=== PATIENT | male | born 1940 | race Caucasian/White ===

== ENCOUNTER 2018-04-06 14:01 | Emergency (ER) | payer MEDICARE, OTHER, SELFPAY ==
[2018-04-06] VITALS (9 sets, daily range): BP systolic 144–174; BP diastolic 76–105; PULSE 67–93; RESP 15–28; TEMP 36.4; O2SAT 93–96; BMI 27.7
--- NOTE | 2018-04-06 14:27 | DI.RAD.S_ITS ---
PROCEDURE: XR CHEST 2V INDICATIONS: 77-year-old male with chronic shortness of breath, increasing today. TECHNIQUE: 2 views of the chest were acquired. COMPARISON: [facility], , CHEST 1 VIEW, 03/05/2017, 17:00. [facility], , CHEST 1 VIEW, 11/21/2016, 14:24. [facility], , CHEST 1 VIEW, 11/17/2016, 11:43. 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 Lungs and pleura: Trace bibasilar pleural effusions are present. No pneumothorax. There is mild interstitial pulmonary edema. Mediastinum: Mediastinal contours are normal. Heart size is normal. Bones and chest wall: No suspicious bony abnormalities. There is truncation of the lateral left clavicle from remote surgery or trauma. Soft tissues appear unremarkable. IMPRESSION: Mild interstitial pulmonary edema along with trace bibasilar pleural effusions, possibly from congestive heart failure. Dictated by: Jeremy Fay M.D. on 04/06/2018 at 15:21 Approved by: Jeremy Fay M.D. on 04/06/2018 at 15:23
[2018-04-06 15:00] LABS: Add Manual Diff / Slide Review NO; Basophils Percent Auto 1.1 % (0-2); Eosinophils Percent Auto 5.1 % (2-4); Hematocrit 35.9 % (41-53); Hemoglobin 11.8 g/dL (13.5-17.5); Lymphocytes Percent Auto 10.3 % (25-40); Mean Corpuscular Hemoglobin 26.8 PG (26-34); Mean Corpuscular Volume 81.1 fL (80-100); Monocytes Percent Auto 8.9 % (3-14); Neutrophils Absolute Auto 4100 /uL (3000-5900); Neutrophils Percent Auto 74.6 % (50-75); Platelet Count 122 X10^3/uL (150-400); Red Blood Cell Count 4.42 X10^6/uL (4.5-5.9); Red Cell Distribution Width 16.9 % (11.6-14.8); White Blood Cell Count 5.5 X10^3/uL (4.5-11.0)
[2018-04-06 15:11] LABS: Alanine Aminotransferase 36 IU/L (21-72); Albumin 3.9 g/dL (3.5-5.0); Albumin Globulin Ratio 1.3 (1.0-2.8); Alkaline Phosphatase 86 U/L (38-126); Aspartate Aminotransferase 16 IU/L (17-59); Bilirubin Total 0.7 mg/dL (0.2-1.3); Blood Urea Nitrogen 24 mg/dL (9-20); Calcium 9.2 mg/dL (8.4-10.2); Carbon Dioxide 23 mmol/L (22-32); Chloride 105 mmol/L (98-107); Creatine Kinase 80 U/L (55-170); Estimated Glomerular Filt Rate 45.1 mL/min (>60); Globulin 2.9 g/dL (1.7-4.1); Glucose 114 mg/dL (80-110); HEMOLYSIS < 15 (0-50); Potassium 3.5 mmol/L (3.4-5.1); Sodium 143 mmol/L (137-145); Total Protein 6.8 g/dL (6.3-8.2)
[2018-04-06 15:12] LABS: Lactate (Lactic Acid) 1.4 mmol/L (0.7-2.1)
[2018-04-06 15:23] LABS: Troponin I < 0.012 ng/mL (0.01-0.034)
--- NOTE | 2018-04-06 15:32 | ED_ITS ---
HPI - SOB/Dyspnea General Chief Complaint: Shortness of Breath/Dyspnea Stated Complaint: HARD TIME BREATHING Time Seen by Provider: 04/06/18 14:27 Source: patient Limitations: no limitations History of Present Illness Patient presents to the emergency department today with a chief complaint of shortness of breath which has been going on quite some time but is noticeably worse over the past few days. He denies any significant provocation or palliation of his symptoms. He coughs frequently and states he has been doing this for years. He was recently admitted at [facility] a few weeks ago. He denies any chest pain is not dizzy nor weak or lightheaded. He denies any weight gain MD Complaint: shortness of breath Onset (ago): day(s) Context: recent illness Severity: moderate Consistency/Duration: constant Relieving factors: nothing Exacerbating factors: nothing Related Data Home Medications Medication Instructions Recorded Confirmed aspirin 81 mg PO DAILY #0 05/25/10 04/06/18 amlodipine 10 mg PO DAILY 04/06/18 04/06/18 apixaban [Eliquis] 2.5 mg PO BID 04/06/18 04/06/18 atorvastatin 40 mg PO DAILY 04/06/18 04/06/18 donepezil 5 mg PO BEDTIME 04/06/18 04/06/18 fluticasone furoate 1 spray INTRANASAL DIRECTED 04/06/18 04/06/18 furosemide 20 mg PO DAILY 04/06/18 04/06/18 metoprolol succinate 50 mg PO DAILY 04/06/18 04/06/18 metoprolol succinate 100 mg PO DAILY 04/06/18 04/06/18 terazosin 2 cap PO BEDTIME 04/06/18 04/06/18 Allergies Allergy/AdvReac Type Severity Reaction Status Date / Time No Known Drug Allergies Allergy Verified 04/06/18 14:16 Review of Systems Review of Systems All systems reviewed & are unremarkable except as noted in HPI and below Constitutional Denies chills, Denies fever(s), Denies lethargy and Denies weakness Eyes Denies change in vision, Denies eye discharge, Denies irritation and Denies loss of vision ENT Ears, Nose, Mouth, and Throat: Denies change in voice, Denies neck pain and Denies sore throat Cardiovascular Denies chest pain, Denies irregular heart rhythm, Denies lightheadedness, Denies palpitations, Reports dyspnea, Reports dyspnea on exertion and Denies orthopnea Respiratory Denies cough, Reports dyspnea, Reports dyspnea on exertion and Denies wheezing Gastrointestinal Gastrointestinal: Denies abdominal pain, Denies change in bowel habits, Denies diarrhea, Denies nausea and Denies vomiting Genitourinary Denies hematuria, Denies flank pain, Denies urinary incontinence and Denies urinary urgency Musculoskeletal Denies neck pain Integumentary/Breasts Denies pruritus, Denies erythema, Denies rash and Denies wounds Neurologic Denies confusion, Denies loss of vision and Denies weakness Psychiatric Denies anxiety, Denies confusion, Denies depression, Denies homicidal ideation and Denies suicidal ideation Endocrine Denies palpitations Hematologic/Lymphatic Denies easy bruising Allergic/Immunologic Denies wheezing PFSH Social History Smoking Status: Never smoker Exam Narrative Exam Narrative: Pleasant 77-year-old male in no obvious or significant distress Initial Vital Signs Initial Vital Signs: Vital Signs Temperature 97.6 F 04/06/18 14:13 Pulse Rate 68 04/06/18 14:13 Respiratory Rate 28 H 04/06/18 14:13 Blood Pressure 144/77 H 04/06/18 14:13 Pulse Oximetry 93 04/06/18 14:13 Const General: cooperative, healthy appearing, comfortable and well developed Nutritional Appearance: overweight Orientation: alert, awake, oriented x3 and not confused [facility] Head: normocephalic and atraumatic Ears: external ears normal and TM's normal bilaterally Nose: external nose normal and No nasal discharge Face and sinus: sinuses nontender, face symmetric, no sinus tenderness and No dry mucous membranes Mouth: oral mucosae normal and moist mucous membranes Teeth and gingiva: dentition normal Throat: tonsils normal and uvula midline Eyes General: appearance normal, both eyes and all related structures Eyelids: eyelids normal Conjunctivae: conjunctivae normal Sclera: sclerae normal Pupils: PERRL EOM: EOM intact bilaterally Neck Neck: normal visual inspection, trachea midline, No lymphadenopathy, No midline deformity and No JVD Lymphatic: No lymphedema Chest Chest: normal inspection of the chest Resp Effort & Inspection: prolonged expiratory phase Auscultation: diminished lung sounds, no rales, no rhonchi and wheezes Cardio Rate: regular rate Rhythm: regular rhythm Heart Sounds: no click, no gallops, no murmurs and no rubs Pulses: normal peripheral pulses GI Inspection: non-distended Palpation: soft, no hepatosplenomegaly, No guarding, No pulsatile mass and No tender Auscultation: normal bowel sounds Back/Spine/Pelvis Back: No CVA tenderness Cervical Spine: cervical ROM normal and No pain with cervical ROM Thoracic/Lumbar Spine: thoracic and lumbar spine normal to inspection Skin General: no rashes or lesions noted, No jaundice and No petechiae Neuro General: alert, oriented x3, gait normal and no focal motor deficits Speech: speech normal Extrem General: full ROM, no clubbing, cyanosis or edema, no pedal edema and no calf tenderness Psych Appearance: well kempt Mental Status: mental status grossly normal Attitude: cooperative Thought Content: normal and suicidality Judgment: judgment good Course Orders Ordered: ED Orders 04/06/18 14:27 Consult to Respiratory Therapy Evaluate & Treat XR chest 2V Stat EKG-12 Lead Stat 04/06/18 14:50 B Type Natriuretic Peptide Stat Complete Blood Count AUTO DIFF Stat Comprehensive Metabolic Panel Stat Lactate (Lactic Acid) Stat Troponin with CK Cardiac Panel Stat Discontinued Medications Albuterol/Ipratropium (Duoneb) 3 ml INH NOW ONE Stop: 04/06/18 15:33 Last Admin: 04/06/18 16:06 Dose: 3 ml Furosemide (Lasix) 40 mg IV NOW ONE Stop: 04/06/18 15:33 Last Admin: 04/06/18 15:36 Dose: 40 mg Methylprednisolone (Solu-Medrol 125 Mg Vial) 125 mg IV NOW ONE Stop: 04/06/18 15:33 Last Admin: 04/06/18 15:36 Dose: 125 mg Reevaluation(s) Reevaluation #1: Patient feeling tremendous improvement after above-stated therapies, will do ambulatory pulse ox prior to DC Reevaluation #2: Patient ambulates through department without difficulty. Ambulatory pulse ox is in mid 90s with a heart rate in the 80s, he remains fully conversant Time: 17:52 Vital Signs - 8 hr 04/06/18 14:13 04/06/18 15:31 04/06/18 16:00 Temperature 97.6 F Pulse Rate 68 69 71 Respiratory Rate 28 H 23 16 Blood Pressure 144/77 H Blood Pressure [Left Arm] 166/76 H 150/78 H Pulse Oximetry 93 96 96 04/06/18 16:25 04/06/18 16:41 04/06/18 17:30 Temperature Pulse Rate 67 81 93 H Respiratory Rate 20 17 15 Blood Pressure Blood Pressure [Left Arm] 174/78 H 164/105 H Pulse Oximetry 95 94 93 MDM - SOB/Dyspnea Lab Data Result diagrams: 04/06/18 14:50 04/06/18 14:50 Lab Results 04/06/18 04/06/18 04/06/18 Range/Units 14:50 14:50 14:50 WBC 5.5 (4.5-11.0) X10^3/uL RBC 4.42 L (4.5-5.9) X10^6/uL Hgb 11.8 L (13.5-17.5) g/dL Hct 35.9 L (41-53) % MCV 81.1 (80-100) fL MCH 26.8 (26-34) PG MCHC 33.0 (30-36) % RDW 16.9 H (11.6-14.8) % Plt Count 122 L (150-400) X10^3/uL Neut % (Auto) 74.6 (50-75) % Lymph % (Auto) 10.3 L (25-40) % [place] % (Auto) 8.9 (3-14) % Eos % (Auto) 5.1 H (2-4) % Baso % (Auto) 1.1 (0-2) % Neut # (Auto) 4100 (0651-2715) /uL Sodium 143 (137-145) mmol/L Potassium 3.5 (3.4-5.1) mmol/L Chloride 105 (98-107) mmol/L Carbon Dioxide 23 (22-32) mmol/L BUN 24 H (9-20) mg/dL Creatinine 1.50 H (0.66-1.25) mg/dL Estimated GFR 45.1 L (>60) mL/min BUN/Creatinine Ratio 16.0 (6-22) Glucose 114 H (80-110) mg/dL Lactate 1.4 (0.7-2.1) mmol/L Calcium 9.2 (8.4-10.2) mg/dL Total Bilirubin 0.7 (0.2-1.3) mg/dL AST 16 L (17-59) IU/L ALT 36 (21-72) IU/L Alkaline Phosphatase 86 (38-126) U/L Total Creatine Kinase 80 (55-170) U/L Troponin I < 0.012 (0.01-0.034) ng/mL B-Natriuretic Peptide 692.0 H (<29.3) Total Protein 6.8 (6.3-8.2) g/dL Albumin 3.9 (3.5-5.0) g/dL Globulin 2.9 (1.7-4.1) g/dL Albumin/Globulin Ratio 1.3 (1.0-2.8) Discharge Plan Departure Patient Disposition: Home, Self-Care Clinical Impression: CHF exacerbation Instructions: DI for Heart Failure Activity Restrictions/Additional Instructions: *You have been diagnosed with [ acute CHF ] *What to do: * please take an additional Lasix daily for each of the next 3 days (up to 40mg PO) Take other medications as directed *Follow up with your primary care provider in 2-3 days *Return to ER if you should have any new, worsening or concerning symptoms Prescriptions: No Action aspirin 81 mg Tablet,Delayed Release (Dr/Ec) 81 mg PO DAILY Qty: 0 RF: 0 atorvastatin 40 mg tablet 40 mg PO DAILY RF: 0 donepezil 5 mg tablet 5 mg PO BEDTIME RF: 0 metoprolol succinate 100 mg tablet extended release 24 hr 100 mg PO DAILY RF: 0 amlodipine 10 mg tablet 10 mg PO DAILY RF: 0 furosemide 20 mg tablet 20 mg PO DAILY RF: 0 apixaban [Eliquis] 2.5 mg tablet 2.5 mg PO BID RF: 0 metoprolol succinate 50 mg Tablet Extended Release 24 Hr 50 mg PO DAILY RF: 0 terazosin 10 mg capsule 2 cap PO BEDTIME RF: 0 fluticasone furoate 27.5 mcg/actuation [place],Suspension 1 spray Intranasal DIRECTED RF: 0
[2018-04-06] MEDS: methylPREDNISolone 125 MG/2 ML VIAL IV (15:36)
[2018-04-06] MEDS: FUROSEMIDE 40 MG/4 ML VIAL IV (15:36)
--- NOTE | 2018-04-06 15:42 | PC.NURSE ---
Explained meds given. Understands.
[2018-04-06] MEDS: ALBUTEROL/IPRATROPIUM 3 ML AMPUL INH (16:06)
== END 2018-04-06 18:22 | disposition home or self-care (01) ==
PROVIDERS: Emergency Provider Emergency Medicine; Family Provider Internal Medicine; PCP Internal Medicine
DX: I50.9 Heart failure, unspecified (principal)
CPT/HCPCS: 36591; 71046; 80053; 82550; 82553; 83605; 83880; 84484; 85025; 93005; 93041; 94640; 96374; 96375; 99285; J1940; J2930

== ENCOUNTER 2018-05-06 17:49 | Inpatient (IN) | payer MEDICARE, OTHER, SELFPAY ==
[2018-05-06] VITALS (13 sets, daily range): BP systolic 143–191; BP diastolic 75–114; PULSE 104–137; RESP 16–26; TEMP 36.8–37.7; O2SAT 90–100; BMI 29.1
--- NOTE | 2018-05-06 17:52 | DI.RAD.S_ITS ---
PROCEDURE: XR CHEST 1V INDICATIONS: Problems breathing with cough TECHNIQUE: One view of the chest was acquired. COMPARISON: [facility], , CHEST 1 VIEW, 11/21/2016, 14:24. [facility], , CHEST 1 VIEW, 03/05/2017, 17:00. [facility], , XR CHEST 2V, 04/06/2018, 14:36. FINDINGS: Surgical changes and devices: Sternotomy and a prosthetic heart valve. Lungs and pleura: Bilateral interstitial prominence suggesting mild pulmonary edema secondary to congestive heart failure. Retrocardiac opacity may be secondary to superimposed pneumonia. No pleural effusions or pneumothorax. Mediastinum: Mediastinal contours appear normal. Heart size is normal. Bones and chest wall: No suspicious bony lesions. Overlying soft tissues appear unremarkable. IMPRESSION: 1. Suspect mild congestive heart failure. 2. Retrocardiac opacity may be secondary to superimposed pneumonia. Recommend clinical correlation. Dictated by: Kayla Pritchett M.D. on 05/06/2018 at 18:35 Approved by: Kayla Pritchett M.D. on 05/06/2018 at 18:37
[2018-05-06 18:21] LABS: Add Manual Diff / Slide Review NO; Basophils Percent Auto 0.7 % (0-2); Eosinophils Percent Auto 2.2 % (2-4); Hemoglobin 11.4 g/dL (13.5-17.5); Lymphocytes Percent Auto 6.7 % (25-40); Mean Corpuscular HGB Conc 32.7 % (30-36); Mean Corpuscular Hemoglobin 26.5 PG (26-34); Mean Corpuscular Volume 81.3 fL (80-100); Monocytes Percent Auto 8.3 % (3-14); Neutrophils Absolute Auto 5400 /uL (3000-5900); Neutrophils Percent Auto 82.1 % (50-75); Platelet Count 133 X10^3/uL (150-400); Red Blood Cell Count 4.31 X10^6/uL (4.5-5.9); Red Cell Distribution Width 17.8 % (11.6-14.8); White Blood Cell Count 6.6 X10^3/uL (4.5-11.0)
[2018-05-06 18:31] LABS: INR 1.4 (0.9-1.3); Prothrombin Time 15.5 SECONDS (10.1-12.7)
[2018-05-06] MEDS: dilTIAZem 25 MG/5 ML SDV 10 MG IV (18:32)
[2018-05-06] MEDS: FUROSEMIDE 100 MG/10 ML VIAL 60 MG IV (18:32)
[2018-05-06 18:33] LABS: PTT Partial Thromboplastin Tim 31 SECONDS (26.4-36.2)
[2018-05-06 18:39] LABS: Alanine Aminotransferase 38 IU/L (21-72); Albumin Globulin Ratio 1.3 (1.0-2.8); Alkaline Phosphatase 94 U/L (38-126); Aspartate Aminotransferase 23 IU/L (17-59); BUN Creatinine Ratio 16.2 (6-22); Bilirubin Total 0.7 mg/dL (0.2-1.3); Blood Urea Nitrogen 21 mg/dL (9-20); Calcium 9.4 mg/dL (8.4-10.2); Carbon Dioxide 24 mmol/L (22-32); Chloride 110 mmol/L (98-107); Estimated Glomerular Filt Rate 53.3 mL/min (>60); Globulin 3.1 g/dL (1.7-4.1); Glucose 129 mg/dL (80-110); HEMOLYSIS 28 (0-50); Potassium 3.8 mmol/L (3.4-5.1); Sodium 147 mmol/L (137-145); Total Protein 7.1 g/dL (6.3-8.2)
[2018-05-06 18:53] LABS: Troponin I < 0.012 ng/mL (0.01-0.034)
[2018-05-06 18:56] LABS: Procalcitonin < 0.05 ng/mL (<0.5)
[2018-05-06] MEDS: PROPOFOL 200 MG/20 ML VIAL 50 MG IV (19:47)
--- NOTE | 2018-05-06 19:52 | ED_ITS ---
HPI - SOB/Dyspnea General Chief Complaint: Shortness of Breath/Dyspnea Stated Complaint: HARD TIME BREATHING COUGH Time Seen by Provider: 05/06/18 18:00 Source: patient and family Mode of arrival: ambulatory Limitations: no limitations History of Present Illness 77-year-old male with history of AFib on anticoagulation, CHF, and hypertension presents with 3-4 days of increasing shortness of breath, particularly with exertion or lying flat. Additionally has swelling in his lower extremities. He states he has normally in sinus rhythm and has never been cardioverted. He is not dizzy or lightheaded but is short of breath and fatigued. He has had some cough but denies any yellowish sputum or fever. He states he has actually been slightly short of breath since I last saw him on April 06 for an exacerbation of heart failure in which he was encouraged to take a few extra doses of Lasix and follow up with his primary care provider. MD Complaint: shortness of breath and cough Onset (ago): day(s) Related Data Home Medications Medication Instructions Recorded Confirmed aspirin 81 mg PO DAILY #0 05/25/10 05/06/18 amlodipine 10 mg PO DAILY 04/06/18 05/06/18 apixaban [Eliquis] 2.5 mg PO BID 04/06/18 05/06/18 atorvastatin 40 mg PO DAILY 04/06/18 05/06/18 donepezil 5 mg PO BEDTIME 04/06/18 05/06/18 fluticasone furoate 1 spray INTRANASAL PRN PRN 04/06/18 05/06/18 furosemide 20 mg PO DAILY 04/06/18 05/06/18 metoprolol succinate 50 mg PO DAILY 04/06/18 05/06/18 metoprolol succinate 100 mg PO DAILY 04/06/18 05/06/18 terazosin 2 cap PO BEDTIME 04/06/18 05/06/18 Allergies Allergy/AdvReac Type Severity Reaction Status Date / Time No Known Drug Allergies Allergy Verified 04/06/18 14:16 Review of Systems Review of Systems All systems reviewed & are unremarkable except as noted in HPI and below Constitutional Denies chills, Denies fever(s), Denies lethargy and Denies weakness Eyes Denies change in vision, Denies eye discharge, Denies irritation and Denies loss of vision ENT Ears, Nose, Mouth, and Throat: Denies change in voice, Denies neck pain and Denies sore throat Cardiovascular Denies chest pain, Denies irregular heart rhythm, Denies lightheadedness, Denies palpitations, Reports dyspnea, Denies dyspnea on exertion and Denies orthopnea Respiratory Reports cough, Reports dyspnea, Denies dyspnea on exertion and Denies wheezing Gastrointestinal Gastrointestinal: Denies abdominal pain, Denies change in bowel habits, Denies diarrhea, Denies nausea and Denies vomiting Genitourinary Denies hematuria, Denies flank pain, Denies urinary incontinence and Denies urinary urgency Musculoskeletal Denies neck pain Integumentary/Breasts Denies pruritus, Denies erythema, Denies rash and Denies wounds Neurologic Denies confusion, Denies loss of vision and Denies weakness Psychiatric Denies anxiety, Denies confusion, Denies depression, Denies homicidal ideation and Denies suicidal ideation Endocrine Denies palpitations Hematologic/Lymphatic Denies easy bruising Allergic/Immunologic Denies wheezing PFSH Social History household members: spouse Smoking Status: Never smoker Exam Narrative Exam Narrative: Pleasant 77-year-old male in mild distress, obviously short of breath. Nasal cannula to keep pulse ox at 92% Initial Vital Signs Initial Vital Signs: Vital Signs Temperature 98.2 F 05/06/18 18:00 Pulse Rate 135 H 05/06/18 18:00 Respiratory Rate 26 H 05/06/18 18:00 Blood Pressure 191/108 H 05/06/18 18:00 Pulse Oximetry 90 L 05/06/18 18:00 Const General: cooperative, well developed and acute distress Nutritional Appearance: well nourished Orientation: alert, awake, oriented x3 and not confused [facility] Head: normocephalic and atraumatic Ears: external ears normal and TM's normal bilaterally Nose: external nose normal and No nasal discharge Face and sinus: sinuses nontender, face symmetric, no sinus tenderness and No dry mucous membranes Mouth: oral mucosae normal and moist mucous membranes Teeth and gingiva: dentition normal Throat: tonsils normal and uvula midline Eyes General: appearance normal, both eyes and all related structures Eyelids: eyelids normal Conjunctivae: conjunctivae normal Sclera: sclerae normal Pupils: PERRL EOM: EOM intact bilaterally Neck Neck: normal visual inspection, trachea midline, No lymphadenopathy, No midline deformity and No JVD Lymphatic: No lymphedema Chest Chest: normal inspection of the chest Resp Effort & Inspection: normal respiratory effort, able to speak in complete sentences, respiratory distress and no use of accessory muscles Auscultation: clear to auscultation bilaterally, rales, no rhonchi and no wheezes Cardio Rhythm: abnormal rhythm GI Inspection: non-distended Palpation: soft, no hepatosplenomegaly, No guarding, No pulsatile mass and No tender Auscultation: normal bowel sounds Back/Spine/Pelvis Back: No CVA tenderness Cervical Spine: cervical ROM normal and No pain with cervical ROM Thoracic/Lumbar Spine: thoracic and lumbar spine normal to inspection Skin General: no rashes or lesions noted, No jaundice and No petechiae Neuro General: alert, awake and oriented x3 Extrem Right lower extremity: edema Left lower extremity: edema Procedures Procedural Sedation Indication: cardioversion ASA Class: II Mallampati Airway Classification: Class II Preparation: groundwater monitoring technician applied, pulse oximeter, capnometry used, supplemental O2 applied, suction/airway equipment at bedside and IV secured IV Propofol dose (mg): 50 ED Sedation Level: Moderate (Concious) Patient Tolerated Procedure: Well Complications: none Additional Comments: Electrical Cardioversion: Indication: [Rapid AFib in CHF] A time-out was completed verifying correct patient, procedure and site. Informed consent was obtained. The patient was judged to be a satisfactory for the procedure. An intravenous access was established. Monitoring equipment was set-up. The resuscitative cart was nearby. Anesthesia: The patient was given an intravenous dose of [propofol 50 mg IVP] After satisfactory anesthesia was achieved, the procedure was performed. The paddles were placed in the standard position. Synchronized, direct current electrical cardioversion was performed with [I joules]. The patient tolerated the procedure well. There were no complications. Post Procedure: Successful cardioversion [was NOT achieved.] Post procedure cardiac monitoring demonstrated [AFib 110s]. Course Orders Ordered: ED Orders 05/06/18 17:52 XR chest 1V Stat EKG-12 Lead Stat 05/06/18 18:10 B Type Natriuretic Peptide Stat Complete Blood Count AUTO DIFF Stat Comprehensive Metabolic Panel Stat Partial Thromboplastin Time Stat Procalcitonin Stat Prothrombin Time INR Stat Troponin I Stat 05/06/18 22:30 MRSA PCR Urgent Acetaminophen (Tylenol) 650 mg PO Q6HR PRN PRN Reason: As Needed for Fever/Mild Pain Last Admin: 05/06/18 23:48 Dose: 650 mg Amlodipine Besylate (Norvasc) 10 mg PO DAILY [facility] Apixaban (Eliquis) 2.5 mg PO BID [facility] Last Admin: 05/06/18 23:33 Dose: 2.5 mg Atorvastatin Calcium (Lipitor) 40 mg PO DAILY [facility] Diltiazem HCl (Cardizem) 20 mg IV Q2HR PRN PRN Reason: HR > 120 Last Admin: 05/06/18 22:16 Dose: 20 mg Donepezil HCl (Aricept) 5 mg PO BEDTIME [facility] Last Admin: 05/06/18 23:35 Dose: 5 mg Ceftriaxone Sodium/Dextrose (Rocephin) 1 gm in 50 mls @ 100 mls/hr IV Q24H [facility] Azithromycin 500 mg/ Dextrose 250 mls @ 250 mls/hr IV Q24H [facility] Last Admin: 05/06/18 23:35 Dose: 250 mls/hr Sodium Chloride (Normal Saline 0.9%) 250 mls @ 21 mls/hr IV Q24H PRN PRN Reason: Flush Metoprolol Succinate (Toprol Xl) 150 mg PO DAILY [facility] Ondansetron HCl (Zofran) 4 mg IV Q4HR PRN PRN Reason: Nausea And Vomiting Terazosin HCl (Hytrin) 10 mg PO BEDTIME [facility] Last Admin: 05/06/18 23:40 Dose: 10 mg Discontinued Medications Diltiazem HCl (Cardizem) 10 mg IV NOW ONE Stop: 05/06/18 18:23 Last Admin: 05/06/18 18:32 Dose: 10 mg Furosemide (Lasix) 60 mg IV NOW ONE Stop: 05/06/18 18:23 Last Admin: 05/06/18 18:32 Dose: 60 mg Ceftriaxone Sodium/Dextrose (Rocephin) 1 gm in 50 mls @ 100 mls/hr IV NOW ONE Stop: 05/06/18 20:21 Last Infusion: 05/06/18 20:49 Dose: 0 mls/hr Admin: 05/06/18 20:12 Dose: 100 mls/hr Metoprolol Succinate (Toprol Xl) 50 mg PO DAILY [facility] Metoprolol Succinate (Toprol Xl) 100 mg PO DAILY [facility] Last Admin: 05/06/18 23:37 Dose: 100 mg Propofol (Diprivan) 50 mg IV NOW ONE Stop: 05/06/18 19:58 Last Admin: 05/06/18 19:47 Dose: 50 mg Terazosin HCl (Hytrin) mg PO BEDTIME [facility] Vital Signs - 8 hr 05/06/18 18:37 05/06/18 19:47 05/06/18 19:52 Temperature Pulse Rate 134 H 131 H 110 H Respiratory Rate 26 H 20 20 Blood Pressure Blood Pressure [Left Arm] 143/93 H 174/103 H 155/75 H Pulse Oximetry 96 100 100 05/06/18 19:57 05/06/18 20:01 05/06/18 20:02 Temperature Pulse Rate 104 H 109 H 108 H Respiratory Rate 20 20 20 Blood Pressure Blood Pressure [Left Arm] 161/85 H 163/98 H Pulse Oximetry 100 100 05/06/18 20:09 05/06/18 21:00 05/06/18 22:16 Temperature 98.4 F Pulse Rate 112 H 137 H 131 H Respiratory Rate 16 24 Blood Pressure 163/89 H 176/114 H Blood Pressure [Left Arm] 164/104 H Pulse Oximetry 94 94 05/06/18 23:00 05/06/18 23:37 05/06/18 23:44 Temperature 98.4 F 99.9 F H Pulse Rate 116 H 122 H 126 H Respiratory Rate 19 22 Blood Pressure 152/100 H 146/92 H 146/92 H Blood Pressure [Left Arm] Pulse Oximetry 92 95 05/07/18 00:41 05/07/18 00:45 05/07/18 02:00 Temperature 99.9 F H 99.9 F H 99.7 F H Pulse Rate 98 H 92 H 89 Respiratory Rate 21 20 Blood Pressure 125/77 H 125/77 H 118/77 Blood Pressure [Left Arm] Pulse Oximetry 98 96 MDM - SOB/Dyspnea Differential Diagnosis Likely congestive heart failure and community acquired pneumonia Medical Records Attestation: I reviewed the patient's medical records. Lab Data Attestation: I reviewed the patient's lab results. Result diagrams: 05/06/18 18:10 05/06/18 18:10 Lab Results 05/06/18 05/06/18 05/06/18 Range/Units 18:10 18:10 18:10 WBC 6.6 (4.5-11.0) X10^3/uL RBC 4.31 L (4.5-5.9) X10^6/uL Hgb 11.4 L (13.5-17.5) g/dL Hct 35.0 L (41-53) % MCV 81.3 (80-100) fL MCH 26.5 (26-34) PG MCHC 32.7 (30-36) % RDW 17.8 H (11.6-14.8) % Plt Count 133 L (150-400) X10^3/uL Neut % (Auto) 82.1 H (50-75) % Lymph % (Auto) 6.7 L (25-40) % [place] % (Auto) 8.3 (3-14) % Eos % (Auto) 2.2 (2-4) % Baso % (Auto) 0.7 (0-2) % Neut # (Auto) 5400 (4505-9779) /uL PT 15.5 H (10.1-12.7) SECONDS INR 1.4 H (0.9-1.3) APTT 31 (26.4-36.2) SECONDS Sodium 147 H (137-145) mmol/L Potassium 3.8 (3.4-5.1) mmol/L Chloride 110 H (98-107) mmol/L Carbon Dioxide 24 (22-32) mmol/L BUN 21 H (9-20) mg/dL Creatinine 1.30 H (0.66-1.25) mg/dL Estimated GFR 53.3 L (>60) mL/min BUN/Creatinine Ratio 16.2 (6-22) Glucose 129 H (80-110) mg/dL Calcium 9.4 (8.4-10.2) mg/dL Total Bilirubin 0.7 (0.2-1.3) mg/dL AST 23 (17-59) IU/L ALT 38 (21-72) IU/L Alkaline Phosphatase 94 (38-126) U/L Troponin I < 0.012 (0.01-0.034) ng/mL B-Natriuretic Peptide 581.0 H (<100) Total Protein 7.1 (6.3-8.2) g/dL Albumin 4.0 (3.5-5.0) g/dL Globulin 3.1 (1.7-4.1) g/dL Albumin/Globulin Ratio 1.3 (1.0-2.8) Procalcitonin (<0.5) ng/mL Nasal Screen MRSA (PCR) (Negative) 05/06/18 05/06/18 Range/Units 18:10 22:30 WBC (4.5-11.0) X10^3/uL RBC (4.5-5.9) X10^6/uL Hgb (13.5-17.5) g/dL Hct (41-53) % MCV (80-100) fL MCH (26-34) PG MCHC (30-36) % RDW (11.6-14.8) % Plt Count (150-400) X10^3/uL Neut % (Auto) (50-75) % Lymph % (Auto) (25-40) % [place] % (Auto) (3-14) % Eos % (Auto) (2-4) % Baso % (Auto) (0-2) % Neut # (Auto) (7022-1344) /uL PT (10.1-12.7) SECONDS INR (0.9-1.3) APTT (26.4-36.2) SECONDS Sodium (137-145) mmol/L Potassium (3.4-5.1) mmol/L Chloride (98-107) mmol/L Carbon Dioxide (22-32) mmol/L BUN (9-20) mg/dL Creatinine (0.66-1.25) mg/dL Estimated GFR (>60) mL/min BUN/Creatinine Ratio (6-22) Glucose (80-110) mg/dL Calcium (8.4-10.2) mg/dL Total Bilirubin (0.2-1.3) mg/dL AST (17-59) IU/L ALT (21-72) IU/L Alkaline Phosphatase (38-126) U/L Troponin I (0.01-0.034) ng/mL B-Natriuretic Peptide (<100) Total Protein (6.3-8.2) g/dL Albumin (3.5-5.0) g/dL Globulin (1.7-4.1) g/dL Albumin/Globulin Ratio (1.0-2.8) Procalcitonin < 0.05 (<0.5) ng/mL Nasal Screen MRSA (PCR) Negative for mrsa (Negative) Imaging Data Chest x-ray: Radiologist's impression: PROCEDURE: XR CHEST 1V INDICATIONS: HTN emergency TECHNIQUE: One view of the chest was acquired. COMPARISON: None. FINDINGS: Surgical changes and devices: None. Lungs and pleura: No pleural effusions or pneumothorax. Lungs are clear. Mediastinum: Mediastinal contours appear normal. Heart size is normal. Bones and chest wall: No suspicious bony lesions. Overlying soft tissues appear unremarkable. IMPRESSION: No acute cardiopulmonary disease. Dictated by: Kayla Pritchett M.D. on 05/06/2018 at 19:16 Approved by: Kayla Pritchett M.D. on 05/06/2018 at 19:21 ECG Data Attestation: I personally reviewed and interpreted this ECG as follows: Prior ECG tracings: available for review Interpretation: Rapid AFib in the 130s without signs of ischemia MDM Narrative Medical decision making narrative: Patient presents with a few days of shortness of breath and initial pulse ox on room air at 90%. Patient has rapid AFib, acute congestive heart failure, and pneumonia on x-ray. He will be admitted for stabilization of his condition. Discharge Plan Departure Discharge Date/Time: 05/06/18 21:02 Interventions: ED Discharge Assessment Last Done: 05/06/18 21:00 Admit Date/Time: 05/06/18 20:24 Admit Provider: Von Bell V
[2018-05-06] MEDS: CEFTRIAXONE 1 GM/50 ML FROZ.PIGGY IV (20:12)
--- NOTE | 2018-05-06 21:57 | PC.NURSE ---
Admit Note: Patient admitted from ER at 2049 to acute care floor. Patient having trouble breathing with rapid heart rate observed and increased shortness of breath. Patient showing rapid afib on remote patient monitor. Patient states that he has had shortness of breath for the last 2 weeks. Patient with very strong non-productive cough. Patient voiding from lasix given in ER. Patient with 2+ edema to lower extremities. Patient on 1.5 L NC oxygen. Stacia Montanez from ICU at bedside. Dr. Bell paged and aware of patient status, new orders received. Patient transferred to ICU via bed.
[2018-05-06] MEDS: dilTIAZem 25 MG/5 ML SDV 20 MG IV (22:16)
--- NOTE | 2018-05-06 22:53 | PC.NURSE ---
Pt to ICU from room 226. Alert and oriented. SOB, tachypneic O2 sats 95% on 2L, non-productive cough. Pt states a-fib is not new, hx of bi-pass, and CHF. Educated to treatment plan and cardizem. Cardizem IVP given as ordered. HR decreased from 130 to 115. Pt reports mild dizziness with activity, denies chest pain. Call light in reach.
[2018-05-06] MEDS: APIXABAN 5 MG TABLET 2.5 MG PO (23:33)
[2018-05-06] MEDS: AZITHROMYCIN 500 MG in DEXTROSE 5% IN WATER 250 ML IV (23:35)
[2018-05-06] MEDS: DONEPEZIL 5 MG TABLET PO (23:35)
[2018-05-06] MEDS: METOPROLOL ER 50 MG TABLET 100 MG PO (23:37)
[2018-05-06] MEDS: TERAZOSIN 5 MG CAPSULE 10 MG PO (23:40)
[2018-05-06] MEDS: ACETAMINOPHEN 325 MG TABLET 650 MG PO (23:48)
[2018-05-07] VITALS (10 sets, daily range): BP systolic 118–152; BP diastolic 77–95; PULSE 85–98; RESP 19–28; TEMP 36.6–37.7; O2SAT 93–98
--- NOTE | 2018-05-07 | DI.ECHO.S_ITS ---
[place] +---------+ [facility] +---------+ : : [address] : : : : [id number] : : : : Phone: [phone] Echocardiogram Report + + :Name: MAX ROSE Study Date: 05/08/2018 Height: 66 in : :[facility] Exam Location: [facility] Weight: 181 lb : : Gender: Male BSA: 1.9 m2 : :: 1940 Age: 77 yrs BP: 143/95 mmHg: :Reason For Study: CAD : :Ordering Physician: Dr. Longoria : :Shatal Performed By: Rajni Page : + + Interpretation Summary The left ventricle is normal in size. The ejection fraction is estimated to be 30-35%. There appears to be akinetic base to mid inferior wall and the base to mid septum along with hypokinetic anterolateral and the posterolateral wall. The right ventricle is grossly normal size. Right ventricular systolic function is moderate to severely reduced. Patient has a history of a mitral valve repair. No significant mitral valve stenosis. There is trace mitral regurgitation. There is moderate tricuspid regurgitation. The right ventricular systolic pressure is estimated at 50 mmHg assuming a right atrial pressure of 15 mm Hg. The ascending aorta is moderately enlarged. There are moderate-sized bilateral pleural effusions noted. Procedure: A two-dimensional transthoracic echocardiogram with color flow and Doppler was performed. The study quality was technically adequate. There is no prior echocardiogram noted for this patient. The patient was in atrial fibrillation with heart rates between 78-84 bpm during the exam. Left Ventricle: The left ventricle is normal in size. There is borderline concentric left ventricular hypertrophy. There is no thrombus. The ejection fraction is estimated to be 30-35%. There appears to be akinetic base to mid inferior wall and the base to mid septum along with hypokinetic anterolateral and the posterolateral wall. Diastolic function could not be accurately assessed due to atrial fibrillation. Right Ventricle: The right ventricle is grossly normal size. Right ventricular systolic function is moderate to severely reduced. Atria: The left atrium is severely dilated. The right atrium is moderate to severely dilated. There is no Doppler evidence for an interatrial shunt. Mitral Valve: The mitral valve leaflets appear thickened, but open well. Patient has a history of a mitral valve repair. An annuloplasty ring is noted in the mitral position. No significant mitral valve stenosis. MV mean P.2 mmHg. MV E max brady: 192.3 cm/sec. There is trace mitral regurgitation. Aortic Valve: The aortic valve is trileaflet. The aortic valve opens well. The aortic valve is mildly calcified. There is discrete nodular thickening of the right coronary cusp. There is no aortic valve stenosis. No aortic regurgitation is present. Tricuspid Valve: The tricuspid valve leaflets are thickened and/or calcified, but open well. There is moderate tricuspid regurgitation. The right ventricular systolic pressure is estimated at 50 mmHg assuming a right atrial pressure of 15 mm Hg. Pulmonic Valve: The pulmonic valve is not well visualized. There is trace pulmonic regurgitation. Great Vessels: The aortic root is normal size. The ascending aorta is moderately enlarged. The aortic arch is at the upper limits of normal in size. The pulmonary artery is normal size. The IVC is dilated (diameter is greater than 2.1 cm) and it collapses less than 50% with a sniff. This suggests a high right atrial pressure of 15 mm Hg. Pericardium/ Pleura There is no pericardial effusion. There are moderate- sized bilateral pleural effusions noted. MMode/2D Measurements & Calculations LVIDd: 5.2 cm LVOT diam: 2.3 cm LVIDs: 4.5 cm Ao root diam: 3.6 cm FS: 13.0 % asc Aorta Diam: 4.4 cm EPSS: 1.1 cm Ao Arch Diam (Prox Trans): 3.2 cm IVSd: 0.95 cm LVPWd: 0.87 cm LV cavanaugh. diameter/BSA (cm/m^2): 2.7 LV sys. diameter/BSA (cm/m^2): 2.3 LA A2 area: 35.8 cm2 RA long axis: 6.5 cm LA A4 area: 30.9 cm2 RA area: 25.5 cm2 LA length (vol): 6.9 cm RA vol: 85.2 ml LA vol: 136.1 ml RA : 44.5 ml/m2 LA vol index: 71.0 ml/m2 IVC diam: 2.9 cm RVD1 (basal): 3.7 cm Doppler Measurements & Calculations Ao V2 max: 117.9 cm/sec LVOT Max Brady: 76.1 cm/sec Ao V2 mean: 86.9 cm/sec LV V1 max P.3 mmHg Ao max P.6 mmHg LV V1 VTI: 13.5 cm Ao mean P.3 mmHg NGUYEN(I,D): 2.6 cm2 Ao V2 VTI: 22.5 cm NGUYEN(V,D): 2.8 cm2 sev ratio: 0.60 NGYUEN indexed to BSA (cm^2/m^2): 1.4 MV E max brady: 192.3 cm/sec TR max brady: 297.0 cm/sec MV P1/2t: 96.3 msec TR max P.3 mmHg MVA(VTI): 1.2 cm2 PA V2 max: 71.7 cm/sec PA V2 mean: 47.7 cm/sec PA mean P.0 mmHg PA Accel Time: 0.09 sec MV V2 mean: 106.6 cm/sec MV P1/2t max brady: 192.3 cm/sec MV mean P.2 mmHg MVA(P1/2t): 2.3 cm2 MV V2 VTI: 48.9 cm Reading Physician:ENMANUEL
[2018-05-07] MEDS: ONDANSETRON 4 MG/2 ML INJ IV (07:40)
--- NOTE | 2018-05-07 07:44 | PM.HP.1 ---
History of Present Illness Date Patient Seen: 05/07/18 Time Patient Seen: 09:50 Chief complaint: HARD TIME BREATHING COUGH Narrative: The patient states that he has had progressive shortness of breath and cough over the past few days, though relates that he has felt poorly over much the last 18 months with chronic shortness of breath and lower extremity edema. He is has developed significant coughing and profound shortness of breath. He was seen in the emergency department and found to be in moderate respiratory distress with oximetry of 90% on room air in atrial fibrillation with rapid ventricular response at 135 beats per minute, up to 160, with elevated BNP over 500. Chest x-ray and exam were consistent with pneumonia with congestive heart failure. He underwent attempted DC synchronized cardioversion under sedation without success with persistent atrial fibrillation in the 110s beats per minute range. Antibiotics were started and diuretics administered. He was transferred to the ICU where he converted to sinus rhythm. He continues to cough vigorously overnight but reports breathing has improved. Patient History Medical History Allergic rhinitis (Acute) Atrial fibrillation (Acute) BPH (benign prostatic hyperplasia) (Acute) Congestive heart failure (Acute) Coronary artery disease (Acute) Hyperlipidemia (Acute) Hypertension (Acute) Surgical History H/O mitral valve replacement (Acute) S/P CABG (coronary artery bypass graft) (Acute) Family & Social History Family History: Reviewed 05/07/18 by Von Bell MD Social History: household members spouse Prior Living Arrangements House Safety & Behavioral: Feels Safe in Current Yes Environment Been Physically Hurt or No Threatened By a Person Suicidal Ideation Description None Tobacco & Substance use: Smoking Status Never smoker alcohol intake frequency 0-2 drinks per day Substance Use Type does not use Meds Home Medications Medication Instructions Recorded Confirmed Type aspirin 81 mg PO DAILY #0 05/25/10 05/06/18 History amlodipine 10 mg PO DAILY 04/06/18 05/06/18 History apixaban [Eliquis] 2.5 mg PO BID 04/06/18 05/06/18 History atorvastatin 40 mg PO DAILY 04/06/18 05/06/18 History donepezil 5 mg PO BEDTIME 04/06/18 05/06/18 History fluticasone furoate 1 spray INTRANASAL PRN PRN 04/06/18 05/06/18 History furosemide 20 mg PO DAILY 04/06/18 05/06/18 History metoprolol succinate 50 mg PO DAILY 04/06/18 05/06/18 History metoprolol succinate 100 mg PO DAILY 04/06/18 05/06/18 History terazosin 2 cap PO BEDTIME 04/06/18 05/06/18 History Allergies Allergy/AdvReac Type Severity Reaction Status Date / Time No Known Drug Allergies Allergy Verified 04/06/18 14:16 Review of Systems Review of Systems All systems reviewed & are unremarkable except as noted in HPI and below Exam Vital Signs (past 8 hours): - 05/07/18 00:41 05/07/18 00:45 05/07/18 02:00 Temperature 99.9 F H 99.9 F H 99.7 F H Pulse Rate 98 H 92 H 89 Respiratory Rate 21 20 Blood Pressure 125/77 H 125/77 H 118/77 Pulse Oximetry 98 96 05/07/18 03:53 05/07/18 06:05 Temperature 99.7 F H 98.4 F Pulse Rate 86 86 Respiratory Rate 19 27 H Blood Pressure 136/95 H 133/91 H Pulse Oximetry 95 94 Oxygen Delivery Method Nasal Cannula Oxygen Flow Rate 2 Narrative Exam Narrative: General: Pleasant male, appears dyspneic with at rest and with mild exertion, intermittently coughing vigorously HEENT: Pupils equal round reactive, mucous membranes pink and moist Neck: Supple, JVD present Lungs: Coarse bibasilar crackles bilaterally Cardiac: Regular rate and rhythm without appreciable murmur Abdomen: Soft, nontender Extremities: 1 to 2+ edema Neurologic: Alert, oriented, no focal neurologic deficits evident Dermatologic: No rash or skin lesions Objective Imaging Chest x-ray: Radiologist's impression: 1. Suspect mild congestive heart failure. 2. Retrocardiac opacity may be secondary to superimposed pneumonia. Recommend clinical correlation. ECG: Atrial fibrillation at 135 beats per minute, Q-waves in leads V1 through V4; repeat EKG shows sinus tachycardia 109 beats per minute with Q-waves in leads V1 through V3 Labs Result Diagrams: 05/06/18 18:10 05/06/18 18:10 Labs: Laboratory Results - last 24 hr 05/06/18 05/06/18 05/06/18 18:10 18:10 18:10 WBC 6.6 RBC 4.31 L Hgb 11.4 L Hct 35.0 L MCV 81.3 MCH 26.5 MCHC 32.7 RDW 17.8 H Plt Count 133 L Neut % (Auto) 82.1 H Lymph % (Auto) 6.7 L [place] % (Auto) 8.3 Eos % (Auto) 2.2 Baso % (Auto) 0.7 Neut # (Auto) 5400 PT 15.5 H INR 1.4 H APTT 31 Sodium 147 H Potassium 3.8 Chloride 110 H Carbon Dioxide 24 BUN 21 H Creatinine 1.30 H Estimated GFR 53.3 L BUN/Creatinine Ratio 16.2 Glucose 129 H Calcium 9.4 Total Bilirubin 0.7 AST 23 ALT 38 Alkaline Phosphatase 94 Troponin I < 0.012 B-Natriuretic Peptide 581.0 H Total Protein 7.1 Albumin 4.0 Globulin 3.1 Albumin/Globulin Ratio 1.3 Procalcitonin Nasal Screen MRSA (PCR) 05/06/18 05/06/18 18:10 22:30 WBC RBC Hgb Hct MCV MCH MCHC RDW Plt Count Neut % (Auto) Lymph % (Auto) Cata[place] % (Auto) Eos % (Auto) Baso % (Auto) Neut # (Auto) PT INR APTT Sodium Potassium Chloride Carbon Dioxide BUN Creatinine Estimated GFR BUN/Creatinine Ratio Glucose Calcium Total Bilirubin AST ALT Alkaline Phosphatase Troponin I B-Natriuretic Peptide Total Protein Albumin Globulin Albumin/Globulin Ratio Procalcitonin < 0.05 Nasal Screen MRSA (PCR) Negative for mrsa Assessment & Plan Plan: Assessment/Plan Narrative: 1. Acute community-acquired bacterial pneumonia. Continue IV ceftriaxone and azithromycin started in the emergency department and follow cultures and clinical status. Treat severe cough with cough suppressants. 2. Acute congestive heart failure, type unknown, possibly diastolic due to intermittent atrial fibrillation with rapid ventricular response. Treat with IV furosemide 40 mg every 8 hr and follow clinically. Obtain echocardiogram. 3. Acute hypoxic respiratory failure due to 1. and 2. The patient has documented oxygen desaturation of 85% after vigorous coughing episodes. Continue supplemental oxygen. 4. Paroxysmal atrial fibrillation, presently in sinus rhythm. Continue to monitor on telemetry with intermittent diltiazem as needed for rate control. Continue Eliquis. Obtain echocardiogram and TSH. 5. Hypertension. Continue routine medication. 6. Hyperlipidemia. Continue atorvastatin. 7. Benign prostatic hypertrophy. Continue terazosin. 8. Donepezil use. Indication unclear. Patient denies dementia. Will attempt to clarify. 9. DVT prophylaxis: Addressed on Eliquis. 10. Code status: Full code. Reviewed with the patient on admission. 11. Disposition: The patient was admitted to ICU status given atrial fibrillation with rapid ventricular response. Transitioned to floor telemetry status. Consult physical therapy. He receives his primary care through the [facility]. Quality VTE Deep Vein Thrombosis/Pulmonary Embolism Present on Admission: No
--- NOTE | 2018-05-07 07:46 | PC.NURSE ---
Addendum entered by Cyndi Smith R.N. 05/07/18 10:56: Gave 10mg guaifenisen with codeine, patient immedialtely threw the dose up. Will attempt to give another dose. Original Note: Pt alert, oriented,reports breathing is better. LS diminshed throughout,crackles LLE, sats on 2L 93-94%,non productive, dry cough. Pt reportssour stomach after drinking some orange juice this morning, has 100 cc emesis, given 4mg IVP zofran. Denies pain.
--- NOTE | 2018-05-07 10:45 | CM.DANOTE ---
Discharge Planning/Care Management CM Discharge Assessment Start: 05/07/18 10:42 Freq: Status: Active Protocol: Document 05/07/18 10:42 (Rec: 05/07/18 10:45 [email or web address]) Discharge Planning Assessment History Provided By Patient Medical Record Has Patient been admitted in last 30 No days? Is this patient on Medicare? Yes Prior Living Arrangements House Household Members spouse Independent with ADL's Yes Is patient alert and oriented? Yes Discharge Plan Home Review Status In Process Next Review Type Continued Stay Review Patient was having difficulty with conversation due to prolong coughing. At this tie time possible discharge needs are unknown. Patient is pending PT eval. CM to follow up following PT eval for any possible discharge needs or concerns.
[2018-05-07] MEDS: CODEINE/GUAIFENESIN LIQUID 10 ML PO ×2 (10:47→19:41)
[2018-05-07] MEDS: FUROSEMIDE 40 MG/4 ML VIAL IV ×2 (10:47→18:16)
[2018-05-07] MEDS: METOPROLOL ER 50 MG TABLET 150 MG PO (11:25)
[2018-05-07] MEDS: AMLODIPINE 5 MG TABLET 10 MG PO (11:25)
[2018-05-07] MEDS: SODIUM CHLORIDE 0.9% FLUSH 10 ML IV ×2 (11:26→21:00)
[2018-05-07] MEDS: APIXABAN 5 MG TABLET 2.5 MG PO ×2 (11:26→20:59)
[2018-05-07 11:30] LABS: Thyroid Stimulating Hormone 2.58 uIU/mL (0.47-4.68)
--- NOTE | 2018-05-07 14:20 | PT.IPTN ---
Current Diagnoses Heart failure, unspecified (05/06/18) Physical Therapy Treatment Note M3 PT-IP Subjective Start: 05/07/18 17:47 Freq: Status: Active Protocol: Document 05/07/18 14:20 RCC (Rec: 05/07/18 17:49 RCC [id number]) Subjective Physical Therapy Visit Type Type Cancellation Notes Hold PT evaluation this date due to pt not appropriate to be seen at this time per RN.
[2018-05-07] MEDS: POTASSIUM CHLORIDE 20 MEQ/15 ML UDC PO (17:08)
--- NOTE | 2018-05-07 17:21 | PC.NURSE ---
Addendum entered by Lisseth March R.N. 05/07/18 20:06: Pt with intermittent cough. Able to take Guiafeniseine in small sips. Pt declines to reposition at this time. 93% on 1L. Monitor. Original Note: Pt with coughing jag, resulting in gagging and clear emesis and expectoration of phlem. Pt sats remained 95% on 1L. Denies need for nausea rx. Set up with meal, encouraged small bites with frequent rest periods. Pt verbalized understanding. Call light in reach.
[2018-05-07] MEDS: TERAZOSIN 5 MG CAPSULE 10 MG PO (20:58)
[2018-05-07] MEDS: DONEPEZIL 5 MG TABLET PO (20:59)
[2018-05-07] MEDS: ATORVASTATIN 20 MG TABLET 40 MG PO (21:00)
[2018-05-07] MEDS: CEFTRIAXONE 1 GM/50 ML FROZ.PIGGY IV (21:00)
[2018-05-07] MEDS: AZITHROMYCIN 500 MG in DEXTROSE 5% IN WATER 250 ML IV (21:49)
[2018-05-08] VITALS (11 sets, daily range): BP systolic 135–154; BP diastolic 75–95; PULSE 78–95; RESP 16–22; TEMP 36.4–36.8; O2SAT 85–95
[2018-05-08] MEDS: CODEINE/GUAIFENESIN LIQUID 10 ML PO ×3 (00:57→15:36)
[2018-05-08] MEDS: ONDANSETRON 4 MG/2 ML INJ IV (00:59)
[2018-05-08] MEDS: SODIUM CHLORIDE 0.9% FLUSH 10 ML IV ×3 (04:49→21:26)
[2018-05-08] MEDS: FUROSEMIDE 40 MG/4 ML VIAL IV ×3 (04:49→17:52)
[2018-05-08 05:21] LABS: BUN Creatinine Ratio 13.1 (6-22); Blood Urea Nitrogen 17 mg/dL (9-20); Carbon Dioxide 29 mmol/L (22-32); Chloride 104 mmol/L (98-107); Estimated Glomerular Filt Rate 53.3 mL/min (>60); Glucose 117 mg/dL (80-110); HEMOLYSIS < 15 (0-50); Potassium 3.6 mmol/L (3.4-5.1); Sodium 144 mmol/L (137-145)
[2018-05-08] MEDS: POTASSIUM CHLORIDE 20 MEQ/15 ML UDC PO ×2 (08:48→17:17)
[2018-05-08] MEDS: METOPROLOL ER 50 MG TABLET 150 MG PO (08:49)
[2018-05-08] MEDS: AMLODIPINE 5 MG TABLET 10 MG PO (08:49)
[2018-05-08] MEDS: APIXABAN 5 MG TABLET 2.5 MG PO ×2 (08:50→21:25)
--- NOTE | 2018-05-08 10:29 | PT.IIE ---
Current Diagnoses Heart failure, unspecified (05/06/18) Surgical History (Last Reviewed 05/07/18 @ 10:32 by Von Bell MD) H/O mitral valve replacement (Acute) S/P CABG (coronary artery bypass graft) (Acute) Medical History (Last Reviewed 05/07/18 @ 10:32 by Von Bell MD) Allergic rhinitis (Acute) Atrial fibrillation (Acute) BPH (benign prostatic hyperplasia) (Acute) Congestive heart failure (Acute) Coronary artery disease (Acute) Hyperlipidemia (Acute) Hypertension (Acute) Physical Therapy Inpatient Evaluation/Re-Eval Medical Review Prior Functional Status Medical History Reviewed Yes Communication no known deficits. Pt reports his hearing is quite sensitive , hates loud noises/voices. Mobility and Gait ind to mod ind w/ SPC. Pt only uses SPC when his nags him to use it. Pt also has a 4WW but never uses it. Pt admits to one fall in the past few month where he tripped on a curb. Social History Household Members spouse Living Arrangements House Number of Floors (Floors) Two Floors Number of Stairs To Enter/Railing? a few step to enter, and a full flight down to the basement where the patient sleeps. Both sets of stairs have a railing. 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 Patient/Caregiver Goals go home once ready, he doesn't feel ready yet. Therapy Pain Assessment Pain When Pain Assessed At Rest Pain Present Pain Present Denied Pain PT-Bed Mobility Assessment Supine to Sit Supine to Sit Independent Sit to Supine Sit to Supine Independent PT-Transfer Assessment Sit to and From Stand Sit to and from Stand Contact Guard Assistance 1 Person Assistance Use of Upper Extremities Equipment Transfer Assistive Device Gait Belt Transfers Transfer Destination Bed Chair Transfer Technique Stand Step Pivot Transfer Ability Level of Assist Contact Guard Assistance 1 Person Assistance Use of Upper Extremities Gait Assessment Gait Gait Assistance Required: Contact Guard Assist Minimum Assistance Distance (Feet) (feet) 300 Assistive Devices Assistive Device Gait Belt Factors Limiting Gait Function Factors Limiting Gait Function Decreased Activity Tolerance Decreased Strength Poor Balance Comments Gait Comments Pt needed initial min A to prevent fall when pt had very uncoordinated stepping pattern . Once pt got going he was able to walk with CGA, but was slow, meandering, and inconsistent stepping pattern at times especially when distracted. Pt needed to take two standing rest breaks with arm braced on wall. By second rest break pt's BLE were severely shaking. Pt denied needing to sit down. Pt denied ever having any tremors in the past. Stair Climbing Assessment Comments Stair Climbing Comments not tested this session PT-Balance Assessment Sitting Balance and Reactions Static Sitting Balance Ability Normal Dynamic Sitting Balance Ability Good Standing Balance and Reactions Static Standing Balance Ability Good Dynamic Standing Balance Ability Fair Device Used none Orientation Orientation/Cognition Level of Alertness Alert Orientation Name Age Birthday Month Date Year Day of Week Place Situation Language Function Ability No Deficits Noted Safety Awareness Decreased Safety Awareness Memory Description No Deficits Noted Comments Pt denied the need for an AD, says his balance is fine even when pointed out that he lost his balance a few times. Gross Range of Motion Upper Extremity ROM Assessment Within Functional Limits Lower Extremity ROM Assessment Within Functional Limits Strength Comments Strength Comments strength not formally tested, BLE grossly appears at least 3 +/5 but with poor endurance. Physical Therapy Treatment Education Education Provided Safety PT Summary Assessment and Plan Potential Rehabilitation Potential Good Status of Condition at Evaluation Evolving Summary Impairments Strength Balance Gait Activity Tolerance Progress Towards Goals Progressing Toward Goals Assessment Summary Pt not consistently coughing like he was yesterday, but he did have a significant emesis occurrence while coughing. RN aware. Pt denying need for an AD at this time, but he would be much safer using a walker of some sort. It would be beneficial to do more thorough balance assessment and make a formal recommendation for AD prior to discharge in addition to stair training. Pt will likely be safe to discharge home but needs another day or so of regular mobilization with nursing and therapies to get his strength and balance improved. Goals Bed Mobility Goal Independent Transfer Goal Independent Gait Goal Independent Other Goals Pt will be mod ind for going up/down 17 steps with 1 rail. Days to Meet Goals 2 Frequency of Treatment Frequency Of Treatment Twice a Day Treatment Plan Physical Therapy Treatment Plan Gait Training Balance Retraining Discharge Planning Other Recommendations and Next Treatment stairs, balance testing and AD Focus recommendation if needed Recommendations To Nursing Amount of Assist Needed 1 Person Assist Discharge Recommendations PT Discharge Recommendations Home Home Health
--- NOTE | 2018-05-08 11:00 | P.PN_ITS ---
Subjective Date Patient Seen: 05/08/18 Time Patient Seen: 09:20 Interval history: The patient reports feeling better though still weak. He has had much less coughing and retching today. Exam Vital Signs (past 8 hours): - 05/08/18 05:17 05/08/18 08:49 05/08/18 08:52 Temperature 97.8 F 97.6 F Pulse Rate 90 85 86 Respiratory Rate 19 16 Blood Pressure 154/92 H 143/95 H 143/95 H Pulse Oximetry 93 95 05/08/18 09:46 Temperature Pulse Rate 90 Respiratory Rate Blood Pressure Pulse Oximetry Oxygen Delivery Method Nasal Cannula Oxygen Flow Rate 2 Narrative Exam Narrative: General: Pleasant male, appears dyspneic with at rest and with mild exertion, intermittently coughing vigorously HEENT: Pupils equal round reactive, mucous membranes pink and moist Neck: Supple, JVD present Lungs: Coarse bibasilar crackles bilaterally Cardiac: Regular rate and rhythm without appreciable murmur Abdomen: Soft, nontender Extremities: 1 to 2+ edema Neurologic: Alert, oriented, no focal neurologic deficits evident Dermatologic: No rash or skin lesions Objective Labs Result Diagrams: 05/06/18 18:10 05/08/18 04:48 Labs: Laboratory Results - last 24 hr 05/06/18 05/08/18 18:10 04:48 Sodium 144 Potassium 3.6 Chloride 104 Carbon Dioxide 29 BUN 17 Creatinine 1.30 H Estimated GFR 53.3 L BUN/Creatinine Ratio 13.1 Glucose 117 H Calcium 9.0 TSH 2.58 Assessment & Plan Plan: Assessment/Plan Narrative: 1. Acute community-acquired bacterial pneumonia. Improving, culture negative to date. Continue IV ceftriaxone and azithromycin started in the emergency department and follow cultures and clinical status. Treat severe cough with antitussives and antiemetics. 2. Acute congestive heart failure, type unknown, possibly diastolic due to intermittent atrial fibrillation with rapid ventricular response. Improved with net negative 2.1 liter diuresis overnight. Treat with IV furosemide 40 mg every 8 hr and follow clinically. Obtain echocardiogram. 3. Acute hypoxic respiratory failure due to 1. and 2. The patient had documented oxygen desaturation of 85% after vigorous coughing episodes. Continue supplemental oxygen. 4. Paroxysmal atrial fibrillation, presently in sinus rhythm. Continue to monitor on telemetry with intermittent diltiazem as needed for rate control. Continue Eliquis. TSH normal. Obtain echocardiogram. 5. Hypertension. Continue routine medication. 6. Hyperlipidemia. Continue atorvastatin. 7. Benign prostatic hypertrophy. Continue terazosin. 8. Donepezil use. Indication unclear. Patient denies dementia. 9. DVT prophylaxis: Addressed on Eliquis. 10. Code status: Full code. Reviewed with the patient on admission. 11. Disposition: Continue inpatient floor telemetry status. Continue physical therapy. He receives his primary care through the [facility]. Quality VTE Deep Vein Thrombosis/Pulmonary Embolism Present on Admission: No
--- NOTE | 2018-05-08 15:43 | PT.IPTN ---
Current Diagnoses Heart failure, unspecified (05/06/18) Physical Therapy Treatment Note Physical Therapy Current Condition Current Condition Evaluation Date 05/08/18 Treatment Diagnosis impaired mobility/balance Onset Date 04/26/18 Subjective Physical Therapy Visit Type Type Treatment Note Visit Start Time 15:03 Visit Stop Time 15:26 Total Visit Minutes 23 Physical Therapy Visit Comments Patient Comments Pt reports feeling better, was able to get some sleep, hasn' t had any more emesis episodes since this morning. Therapy Pain Assessment Pain When Pain Assessed At Rest Pain Present Pain Present Denied Pain PT-Transfer Assessment Sit to and From Stand Sit to and from Stand Contact Guard Assistance 1 Person Assistance Use of Upper Extremities Equipment Transfer Assistive Device Gait Belt Transfers Transfer Destination Bed Chair Transfer Technique Stand Step Pivot Transfer Ability Level of Assist Contact Guard Assistance 1 Person Assistance Use of Upper Extremities Gait Assessment Gait Gait Assistance Required: Contact Guard Assist Distance (Feet) (feet) 300 Assistive Devices Assistive Device Gait Belt Factors Limiting Gait Function Factors Limiting Gait Function Decreased Activity Tolerance Decreased Strength Poor Balance Comments Gait Comments Able to walk entire 300ft without stopping and without any LE shaking. Stair Climbing Assessment Comments Stair Climbing Comments not tested this session PT-Balance Assessment Sitting Balance and Reactions Static Sitting Balance Ability Normal Dynamic Sitting Balance Ability Good Standing Balance and Reactions Static Standing Balance Ability Good Dynamic Standing Balance Ability Fair Device Used none Balance Tests [place] Balance Test Score Query Text:Score Functional Assessments Functional Tests Functional Gait Assessment 09/05 Orientation Orientation/Cognition Level of Alertness Alert Orientation Name Age Birthday Month Date Year Day of Week Place Situation Language Function Ability No Deficits Noted Safety Awareness Decreased Safety Awareness Memory Description No Deficits Noted Comments Pt denied the need for an AD, says his balance is fine even when pointed out that he lost his balance a few times. Gross Range of Motion Upper Extremity ROM Assessment Within Functional Limits Lower Extremity ROM Assessment Within Functional Limits Strength Comments Strength Comments strength not formally tested, BLE grossly appears at least 3 +/5 but with poor endurance. Physical Therapy Treatment Education Education Provided Safety Potential Rehabilitation Potential Good Status of Condition at Evaluation Evolving Summary Assessment Summary Pt's activity tolerance is improving, but pt still with several small LOBs but able to catch himself on a bed or wall or counter each time. Pt has poor balance as evidenced by / on [place] and 09/05 of FGA balance tests. This puts patient at a moderately high fall risk. Pt will likely be much safer with an AD, but pt says he's only willing to use a cane. Next session will trial SPC vs walker (pt does have a 4WW at home) to see if balance and safety are improved.
[2018-05-08] MEDS: CEFTRIAXONE 1 GM/50 ML FROZ.PIGGY IV (21:24)
[2018-05-08] MEDS: DONEPEZIL 5 MG TABLET PO (21:25)
[2018-05-08] MEDS: TERAZOSIN 5 MG CAPSULE 10 MG PO (21:26)
--- NOTE | 2018-05-08 21:53 | PC.NURSE ---
Patient barking harsh cough improved after cough medication. states he is just tired and was asking if he could have a catheter to drain urine because of frequent output with Lasix. Explained current rationale for avoiding pinedo catheters. Denies other discomfort.
[2018-05-08] MEDS: AZITHROMYCIN 500 MG in DEXTROSE 5% IN WATER 250 ML IV (22:04)
[2018-05-09] MEDS: ONDANSETRON 4 MG/2 ML INJ IV (00:17)
[2018-05-09 00:29] VITALS: BP 144/86; PULSE 80; RESP 22; TEMP 36.4; O2SAT 91
[2018-05-09] MEDS: CODEINE/GUAIFENESIN LIQUID 10 ML PO (00:51)
[2018-05-09 05:00] VITALS: BP 152/98; PULSE 81; RESP 20; TEMP 37; O2SAT 92
[2018-05-09 05:54] LABS: BUN Creatinine Ratio 14.6 (6-22); Blood Urea Nitrogen 19 mg/dL (9-20); Carbon Dioxide 34 mmol/L (22-32); Chloride 99 mmol/L (98-107); Estimated Glomerular Filt Rate 53.3 mL/min (>60); Glucose 106 mg/dL (80-110); HEMOLYSIS < 15 (0-50); Potassium 3.4 mmol/L (3.4-5.1); Sodium 143 mmol/L (137-145)
[2018-05-09] MEDS: FUROSEMIDE 40 MG/4 ML VIAL IV (06:54)
[2018-05-09] MEDS: SODIUM CHLORIDE 0.9% FLUSH 10 ML IV ×2 (06:54→09:29)
[2018-05-09 08:00] VITALS: BP 151/95; PULSE 79; RESP 20; TEMP 37.1; O2SAT 91
[2018-05-09] MEDS: POTASSIUM CHLORIDE 20 MEQ/15 ML UDC PO (09:27)
[2018-05-09 09:28] VITALS: BP 151/95; PULSE 85
[2018-05-09] MEDS: METOPROLOL ER 50 MG TABLET 150 MG PO (09:28)
[2018-05-09] MEDS: AMLODIPINE 5 MG TABLET 10 MG PO (09:29)
[2018-05-09] MEDS: APIXABAN 5 MG TABLET 2.5 MG PO (09:29)
--- NOTE | 2018-05-09 11:00 | CM.DPNOTE ---
DCP/continued: Reviewed chart. Current d/c plan is for patient to d/c home when medically stable. Patient resides in [place] with spouse/Julia. Patient evaluated by PT and ambulated 300ft. At this time home appears to be most reasonable plan. P: CM team to continue to follow if d/c needs were to arise. Anticipate home when stable. FRANCOISE Patterson
[2018-05-09 11:13] VITALS: PULSE 75
--- NOTE | 2018-05-09 11:43 | P.DS_ITS ---
History of Present Illness Chief complaint: HARD TIME BREATHING COUGH Narrative: The patient states that he has had progressive shortness of breath and cough over the past few days, though relates that he has felt poorly over much the last 18 months with chronic shortness of breath and lower extremity edema. He is has developed significant coughing and profound shortness of breath. He was seen in the emergency department and found to be in moderate respiratory distress with oximetry of 90% on room air in atrial fibrillation with rapid ventricular response at 135 beats per minute, up to 160, with elevated BNP over 500. Chest x-ray and exam were consistent with pneumonia with congestive heart failure. He underwent attempted DC synchronized cardioversion under sedation without success with persistent atrial fibrillation in the 110s beats per minute range. Antibiotics were started and diuretics administered. He was transferred to the ICU where he converted to sinus rhythm. He continues to cough vigorously overnight but reports breathing has improved. Discharge Providers Date of admission: 05/06/18 20:24 Primary care physician: Spencer Mendieta MD Consults: 05/07/18 10:21 Consult to Physical Therapy Evaluate & Treat Comment: pneumonia Physician Instructions: Evaluate and Treat Discharge provider: Von Bell MD Summary Discharge Diagnosis: 1. Acute community-acquired bacterial pneumonia. 2. Acute systolic congestive heart failure, EF 30-35%, possibly tachycardia- mediated due to intermittent atrial fibrillation with rapid ventricular response due to illness. 3. Acute hypoxic respiratory failure due to 1. and 2, resolved. 4. Paroxysmal atrial fibrillation, presently in sinus rhythm. 5. Hypertension. 6. Hyperlipidemia. 7. Benign prostatic hypertrophy. Hospital Course: 1. Acute community-acquired bacterial pneumonia. Treated from admission with IV ceftriaxone and azithromycin started in the emergency department and clinically improved, cultures negative at discharge. 2. Acute congestive heart failure. The patient presented with atrial fibrillation with rapid ventricular response, and following unsuccessful cardioversion in the emergency department converted spontaneously to sinus rhythm. Improved with net negative 4.9 liter diuresis during his hospitalization. Echocardiogram showed ejection fraction 30-35%. Previous baseline was unknown, and outpatient follow-up was advised. It is possible that this is tachycardia mediated and may improve on subsequent recheck. Continue current medications. His home dose of furosemide was increased from 20 mg to 40 mg at the time of discharge. 3. Acute hypoxic respiratory failure due to 1. and 2. The patient had documented oxygen desaturation of 85% after vigorous coughing episodes, resolved at the time of discharge. 4. Paroxysmal atrial fibrillation, presently in sinus rhythm at discharge. Continue Eliquis. TSH normal. 5. Hypertension. Stable during hospitalization, continued on routine medication. 6. Hyperlipidemia. Continued routine atorvastatin. 7. Benign prostatic hypertrophy. Continued routine terazosin. 8. Donepezil use. Indication unclear. Patient denies dementia. Outpatient follow-up advised. 9. DVT prophylaxis: Addressed on Eliquis. 10. Code status: Full code. Reviewed with the patient on admission. 11. Disposition: The patient was walking with physical therapy at the time of discharge, with normal oxygenation on room air, and interested discharge home. Close outpatient follow-up is advised. Status at Discharge Functional status at discharge: independent ambulation Overall status at discharge: patient is progressing back to baseline Time Spent with Patient Greater than 30 minutes Exam Vital Signs (past 8 hours): - 05/09/18 05:00 05/09/18 08:00 05/09/18 09:28 Temperature 98.6 F 98.8 F Pulse Rate 81 79 85 Respiratory Rate 20 20 Blood Pressure 152/98 H 151/95 H 151/95 H Pulse Oximetry 92 91 05/09/18 11:13 Temperature Pulse Rate 75 Respiratory Rate Blood Pressure Pulse Oximetry Oxygen Delivery Method Nasal Cannula Oxygen Flow Rate 2 Narrative Exam Narrative: General: Pleasant male, appears comfortable, in no apparent distress HEENT: Pupils equal round reactive, mucous membranes pink and moist Neck: Supple, JVD absent Lungs: Fine basilar crackles, otherwise clear to auscultation Cardiac: Regular rate and rhythm without appreciable murmur Abdomen: Soft, nontender Extremities: 1 to 2+ edema Neurologic: Alert, oriented, no focal neurologic deficits evident Dermatologic: No rash or skin lesions Objective Labs Result Diagrams: 05/06/18 18:10 05/09/18 04:42 Labs: Laboratory Results - last 24 hr 05/09/18 04:42 Sodium 143 Potassium 3.4 Chloride 99 Carbon Dioxide 34 H BUN 19 Creatinine 1.30 H Estimated GFR 53.3 L BUN/Creatinine Ratio 14.6 Glucose 106 Calcium 9.0 Discharge Plan Discharge Plan Patient Disposition: Home, Self-Care Wound Care Report to your healthcare provider any signs of infection, such as:: chills, fever, night sweats, increased pain and unusual drainage Discharge Data Primary Care Provider: Spencer Mendieta Attending Provider: Von Bell V Admit Date/Time: 05/06/18 20:24 Quality VTE Deep Vein Thrombosis/Pulmonary Embolism Present on Admission: No
--- NOTE | 2018-05-09 11:58 | PT.IPTN ---
Current Diagnoses Heart failure, unspecified (05/06/18) Physical Therapy Treatment Note M2 PT-IP Current Condition Start: 05/08/18 08:35 Freq: NEEDED Status: Active Protocol: Document 05/08/18 10:04 RS (Rec: 05/08/18 10:29 RS [id number]) Physical Therapy Current Condition Current Condition Evaluation Date 05/08/18 Treatment Diagnosis impaired mobility/balance Onset Date 04/26/18 M3 PT-IP Subjective Start: 05/07/18 17:47 Freq: Status: Active Protocol: Document 05/09/18 11:18 [facility] (Rec: 05/09/18 11:58 [facility] [email or web address]) Subjective Physical Therapy Visit Type Type Treatment Note Visit Start Time 10:40 Visit Stop Time 11:10 Total Visit Minutes 30 Number of RESEARCH PHYSICIAN Visits 0 Physical Therapy Visit Comments Patient Comments Pt reports he is doing better overall and agrees to PT as well as sitting up in the bed side chair following Therapy Pain Assessment Pain When Pain Assessed At Rest Pain Present Pain Present Denied Pain M4 PT-IP Mobility and Gait Start: 05/08/18 08:35 Freq: NEEDED Status: Active Protocol: Document 05/08/18 15:26 RS (Rec: 05/08/18 15:42 RS [id number]) PT-Transfer Assessment Sit to and From Stand Sit to and from Stand Contact Guard Assistance 1 Person Assistance Use of Upper Extremities Equipment Transfer Assistive Device Gait Belt Transfers Transfer Destination Bed Chair Transfer Technique Stand Step Pivot Transfer Ability Level of Assist Contact Guard Assistance 1 Person Assistance Use of Upper Extremities Gait Assessment Gait Gait Assistance Required: Contact Guard Assist Distance (Feet) (feet) 300 Assistive Devices Assistive Device Gait Belt Factors Limiting Gait Function Factors Limiting Gait Function Decreased Activity Tolerance Decreased Strength Poor Balance Comments Gait Comments Able to walk entire 300ft without stopping and without any LE shaking. Stair Climbing Assessment Comments Stair Climbing Comments not tested this session PT-Balance Assessment Sitting Balance and Reactions Static Sitting Balance Ability Normal Dynamic Sitting Balance Ability Good Standing Balance and Reactions Static Standing Balance Ability Good Dynamic Standing Balance Ability Fair Device Used none Balance Tests [place] Balance Test Score 31/56 Query Text:Score Functional Assessments Functional Tests Functional Gait Assessment 09/05 M5 PT-IP Objective Assessments Start: 05/08/18 08:35 Freq: NEEDED Status: Active Protocol: Document 05/08/18 10:04 RS (Rec: 05/08/18 10:29 RS [id number]) Orientation Orientation/Cognition Level of Alertness Alert Orientation Name Age Birthday Month Date Year Day of Week Place Situation Language Function Ability No Deficits Noted Safety Awareness Decreased Safety Awareness Memory Description No Deficits Noted Comments Pt denied the need for an AD, says his balance is fine even when pointed out that he lost his balance a few times. Gross Range of Motion Upper Extremity ROM Assessment Within Functional Limits Lower Extremity ROM Assessment Within Functional Limits Strength Comments Strength Comments strength not formally tested, BLE grossly appears at least 3 +/5 but with poor endurance. M6 PT-IP Treatment Start: 05/08/18 08:35 Freq: NEEDED Status: Active Protocol: Document 05/09/18 11:18 [facility] (Rec: 05/09/18 11:58 [facility] [id number]) Physical Therapy Treatment Exercises Exercises Ankle Pumps Heel Slides Education Education Provided Safety Equipment Issued Equipment Type and Company fww for part of the treatment Other Treatments Other Treatment Performed standing balance training with and without the fww, gait x 300 [address]. 150 feet was done with fww and 150 was done without M7 PT-IP Assessment and Plan Start: 05/08/18 08:35 Freq: NEEDED Status: Active Protocol: Document 05/09/18 11:18 [facility] (Rec: 05/09/18 11:58 [facility] [id number]) PT Summary Assessment and Plan Potential Rehabilitation Potential Good Status of Condition at Evaluation Evolving Summary Progress Towards Goals Safe For Discharge Goals Met Assessment Summary good tolerance for balance today and for gait. The patient stood approx 4-5 min with arms crossed talking without support without any loss of balance. I did use the fww for 150 feet of gait and then assessed without the walker as well and today he did not show loss of balance. I talked with him about using a walker for home may help relieve some LBP and would help with reduction of falls but he reported that he didn't really like using the walker. He will be discharged home today with family Goals Bed Mobility Goal Independent Transfer Goal Independent Gait Goal Independent Other Goals GOAL MET Days to Meet Goals 0 Frequency of Treatment Frequency Of Treatment Once a Day Recommendations To Nursing Amount of Assist Needed Standby Assistance Discharge Recommendations PT Discharge Recommendations Home
--- NOTE | 2018-05-09 13:42 | PC.NURSE ---
PT DISCHARGED TO HOME FOLLOWING REVIEW OF HOSPITAL FOLLOW UP WITH PT AND FAMILY- ALL RX REVIEWED AND NEW RX ELECTRONICALLY SENT TO [facility] PER PT REQUEST
== END 2018-05-09 13:44 | disposition home or self-care (01) | DRG 291 ==
LOC: ED 18:04 → ICU 05-07 12:24
PROVIDERS: Emergency Medicine; Admitting Provider Internal Medicine; Emergency Provider Emergency Medicine; Family Provider Internal Medicine; PCP Internal Medicine; Visit Provider Internal Medicine
DX: I11.0 Hypertensive heart disease with heart failure (principal); J15.9 Unspecified bacterial pneumonia; J96.01 Acute respiratory failure with hypoxia; I50.33 Acute on chronic diastolic (congestive) heart failure; I48.0 Paroxysmal atrial fibrillation; Z79.01 Long term (current) use of anticoagulants; E78.5 Hyperlipidemia, unspecified; N40.0 Benign prostatic hyperplasia without lower urinary tract symptoms; I25.10 Atherosclerotic heart disease of native coronary artery without angina pectoris; Z95.2 Presence of prosthetic heart valve; Z95.1 Presence of aortocoronary bypass graft
CPT/HCPCS: 36415; 36591; 71045; 80048; 80053; 83880; 84145; 84443; 84484; 85025; 85610; 85730; 87797; 92960; 93005; 93306; 94760; 94762; 94770; 97112; 97116; 97161; 99284; 99291; J1940; J2405; J2704

== ENCOUNTER 2018-07-08 12:45 | Emergency (ER) | payer MEDICARE, OTHER, SELFPAY ==
[2018-05-06 21:50] VITALS: BMI 29.1
[2018-07-08 12:50] VITALS: BP 145/68; PULSE 58; RESP 14; TEMP 36.4; O2SAT 96; BMI 28.2
--- NOTE | 2018-07-08 12:53 | DI.RAD.S_ITS ---
PROCEDURE: XR FOOT LT MIN 3V INDICATIONS: atraumatic left foot pain. TECHNIQUE: 3 views of the foot were acquired. COMPARISON: None. FINDINGS: Bones: No fractures or dislocations. No suspicious bony lesions. Soft tissues: No tibiotalar joint effusion. Achilles tendon appears normal. There is soft tissue swelling over the dorsum of the foot. IMPRESSION: Soft tissue swelling without definite bony abnormality. Differential considerations include cellulitis in the appropriate clinical setting. If pain persists, consider advanced imaging with CT or MRI. Dictated by: Nazia Shaffer M.D. on 07/08/2018 at 13:44 Approved by: Nazia Shaffer M.D. on 07/08/2018 at 13:45
--- NOTE | 2018-07-08 14:23 | ED_ITS ---
HPI - Extremity Problem <Isabel Caldera PA-C - Last Filed: 07/08/18 20:59> General Chief complaint: Extremity Problem,Nontraumatic Stated complaint: left foot pain Time Seen by Provider: 07/08/18 14:21 Source: patient Mode of arrival: wheelchair Limitations: no limitations History of Present Illness HPI Narrative: This 78-year-old gentleman complains of acute onset of left foot pain upon awakening yesterday morning. He states it was fine night. He denies any trauma or any change in activity prior. He states pain is worse with bearing weight, but still quite painful sitting. He states aspirin has helped a little bit but in the past he has found he has to take large doses of it. He has not noted any skin breaks. He denies fever. He denies chest pain or dyspnea. He states that he always has some leg swelling and takes Lasix for this, no acute changes there, pain is localized. Related Data Home Medications Medication Instructions Recorded Confirmed aspirin 81 mg PO DAILY #0 05/25/10 05/06/18 amlodipine 10 mg PO DAILY 04/06/18 05/06/18 apixaban 2.5 mg PO BID 04/06/18 05/06/18 atorvastatin 40 mg PO DAILY 04/06/18 05/06/18 donepezil 5 mg PO BEDTIME 04/06/18 05/06/18 fluticasone furoate 1 spray INTRANASAL PRN PRN 04/06/18 05/06/18 metoprolol succinate 50 mg PO DAILY 04/06/18 05/06/18 metoprolol succinate 100 mg PO DAILY 04/06/18 05/06/18 terazosin 2 cap PO BEDTIME 04/06/18 05/06/18 Previous Rx's Medication Instructions Recorded furosemide 40 mg PO DAILY #30 tab 05/09/18 oxycodone-acetaminophen [Percocet] 1 tab PO Q4-6H PRN #10 tab 07/08/18 prednisone 20 mg PO DAILY 5 Days #5 tab 07/08/18 Allergies Allergy/AdvReac Type Severity Reaction Status Date / Time No Known Drug Allergies Allergy Verified 07/08/18 12:53 Review of Systems <Isabel Caldera PA-C - Last Filed: 07/08/18 20:59> Review of Systems All systems reviewed & are unremarkable except as noted in HPI and below Exam <Isabel Caldera PA-C - Last Filed: 07/08/18 20:59> Narrative Exam Narrative: GENERAL APPEARANCE: Patient sitting comfortably, in no distress. NECK/THYROID: Neck supple LUNGS: Clear to auscultation bilaterally. HEART: Rate and rhythm irregular EXTREMITIES: No cyanosis, 1+ pitting to inferior shins bilaterally. No calf tenderness NEUROLOGIC: Alert and oriented, normal speech, and coordination. DERMATOLOGIC: Faint erythema and warmth over the L. 1st MT, no skin breaks. MS: No joint effusion. He is exquisitely tender over the left 1st metatarsal. No tenderness over the toes or ankle, nor other metatarsals. Normal seated range of motion of the toes. Achilles is intact by palpation. Initial Vital Signs Initial Vital Signs: Vital Signs Temperature 97.6 F 07/08/18 12:50 Pulse Rate 58 L 07/08/18 12:50 Respiratory Rate 14 07/08/18 12:50 Blood Pressure 145/68 H 07/08/18 12:50 Pulse Oximetry 96 07/08/18 12:50 <Lauren Freedman DO - Last Filed: 07/11/18 07:40> Initial Vital Signs Initial Vital Signs: Vital Signs Temperature 97.6 F 07/08/18 12:50 Pulse Rate 58 L 07/08/18 12:50 Respiratory Rate 14 07/08/18 12:50 Blood Pressure 145/68 H 07/08/18 12:50 Pulse Oximetry 96 07/08/18 12:50 Course <CRESCENCIO Joshi Last Filed: 07/08/18 20:59> Orders Ordered: ED Orders 07/08/18 12:53 XR foot LT min 3V Stat Vital Signs - 8 hr 07/08/18 12:50 Temperature 97.6 F Pulse Rate 58 L Respiratory Rate 14 Blood Pressure 145/68 H Pulse Oximetry 96 <DO Vargas King Last Filed: 07/11/18 07:40> Orders Ordered: ED Orders 07/08/18 12:53 XR foot LT min 3V Stat Vital Signs - 8 hr 07/08/18 12:50 Temperature 97.6 F Pulse Rate 58 L Respiratory Rate 14 Blood Pressure 145/68 H Pulse Oximetry 96 MDM - Extremity (Nontraumatic) <Isabel Caldera PA-C - Last Filed: 07/08/18 20:59> Imaging Data foot: Radiologist's impression: [address] [address] XRay Report Signed Patient: Aba Ackerman MR#: [id number] : 1940 Acct:[id number] Age/Sex: 78 / M Date of Service: 07/08/18 Loc: ED Accession Number: [id number] Procedure: XR foot LT min 3V Ordering Provider: Isabel Caldera P.A-C PROCEDURE: XR FOOT LT MIN 3V INDICATIONS: atraumatic left foot pain. TECHNIQUE: 3 views of the foot were acquired. COMPARISON: None. FINDINGS: Bones: No fractures or dislocations. No suspicious bony lesions. Soft tissues: No tibiotalar joint effusion. Achilles tendon appears normal. There is soft tissue swelling over the dorsum of the foot. IMPRESSION: Soft tissue swelling without definite bony abnormality. Differential considerations include cellulitis in the appropriate clinical setting. If pain persists, consider advanced imaging with CT or MRI. Dictated by: Nazia Shaffer M.D. on 07/08/2018 at 13:44 Approved by: Nazia Shaffer M.D. on 07/08/2018 at 13:45 Discharge Plan Departure Patient Disposition: Home Clinical Impression: Gout of foot Discharge Date/Time: 07/08/18 14:50 Interventions: ED Discharge Assessment Last Done: 07/08/18 14:50 Instructions: DI for Gout Activity Restrictions/Additional Instructions: Please stop taking any extra aspirin except for the dose advised by your primary care provider as this can increase bleeding risk significantly when combined with your Eliquis. Instead, start prednisone today to treat gout related inflammation, and also I have given you a prescription for Percocet to use for the next day or 2 as needed. Please remember that it can make you sleepy and not to drive. You should also take a stool softener when using that. You should return as we talked about if any acutely worsening symptoms, or new symptoms such as fever. Otherwise, please see your PCP if this is not improving over the next 2-3 days, in which case further testing may be needed as we talked about Thank you for your service and for your patients with our busy Emergency Department today! Prescriptions: New prednisone 20 mg tablet 20 mg PO DAILY 5 Days Qty: 5 RF: 0 oxycodone-acetaminophen [Percocet] 5-325 mg tablet 1 tab PO Q4-6H PRN (Reason: pain/gout) Qty: 10 RF: 0 No Action aspirin 81 mg Tablet,Delayed Release (Dr/Ec) 81 mg PO DAILY Qty: 0 RF: 0 furosemide 40 mg tablet 40 mg PO DAILY Qty: 30 RF: 0 atorvastatin 40 mg tablet 40 mg PO DAILY RF: 0 donepezil 5 mg tablet 5 mg PO BEDTIME RF: 0 metoprolol succinate 100 mg tablet extended release 24 hr 100 mg PO DAILY RF: 0 amlodipine 10 mg tablet 10 mg PO DAILY RF: 0 apixaban 2.5 mg tablet 2.5 mg PO BID RF: 0 metoprolol succinate 50 mg Tablet Extended Release 24 Hr 50 mg PO DAILY RF: 0 terazosin 10 mg capsule 2 cap PO BEDTIME RF: 0 fluticasone furoate 27.5 mcg/actuation [place],Suspension 1 spray Intranasal PRN PRN (Reason: Congestion) RF: 0 Referrals: Nora Pinon MD [Primary Care Provider] - <Lauren Freedman DO - Last Filed: 07/11/18 07:40> Cosign ED Attending Cosignature Attestation: I was immediately available in the department for consultation. Documentation has been reviewed. I agree with assessment and plan.
== END 2018-07-08 14:50 | disposition home or self-care (01) ==
PROVIDERS: Emergency Provider Internal Medicine; PCP Internal Medicine
DX: M10.9 Gout, unspecified (principal)
CPT/HCPCS: 73630; 99282; 99283

== ENCOUNTER 2019-05-26 16:32 | Emergency (ER) | payer MEDICARE, OTHER, SELFPAY ==
[2018-05-06 21:50] VITALS: BMI 29.1
[2019-05-26 16:44] VITALS: BP 156/84; PULSE 91; RESP 20; TEMP 37.2; O2SAT 91; BMI 27.7
--- NOTE | 2019-05-26 17:19 | ED_ITS ---
HPI - Nausea/Vomiting/Diarrhea <Isabel Caldera PA-C - Last Filed: 05/26/19 21:08> General Chief complaint: Nausea/Vomiting/Diarrhea Stated complaint: diarrhea,not feeling well Time Seen by Provider: 05/26/19 17:09 Source: patient Mode of arrival: ambulatory Limitations: no limitations History of Present Illness HPI Narrative: This 78-year-old male comes to ED secondary to 4 day history of nausea, vomiting and diarrhea. He states he is having 1 loose watery nonbloody stool daily. He states he has been vomiting once a day, has some nausea associated with the vomiting episodes, otherwise none. He denies any abdominal pain. He denies any new chest pain or dyspnea. He has not had any fever, chills, or sweats. He denies any new urinary symptoms. He states he has been taking his usual medications, no medication changes. He denies any recent travel, eating out or known exposures, unsure whether any others in the household or having any similar symptoms. He states that he is not feeling any different or worse today, generally going about his normal activities and usual p.o. intake, but states he came in due to his and daughter being concerned. His daughter arrives a couple of hours later and reports that patient has not been doing well for at least a couple of weeks, with poor appetite, daughter states not getting up and making his breakfast and doing usual activities for the last few days. She thinks vomiting and diarrhea may be more frequent because she does the cleaning, but not sure about how often. Patient has not been complaining to her of pain, but has stated at times he does not want to live and seems somewhat depressed, like after previous heart problems. Patient states he has had reduced appetite this week, but not having pain and no clear r zoraida why. He states he has been tolerating fluids without problem. States he is not having any difficulty walking. He denies depression Related Data Home Medications Medication Instructions Recorded Confirmed aspirin 81 mg PO DAILY #0 05/25/10 05/06/18 amlodipine 10 mg PO DAILY 04/06/18 05/06/18 apixaban 2.5 mg PO BID 04/06/18 05/06/18 atorvastatin 40 mg PO DAILY 04/06/18 05/06/18 donepezil 5 mg PO BEDTIME 04/06/18 05/06/18 fluticasone furoate 1 spray INTRANASAL PRN PRN 04/06/18 05/06/18 metoprolol succinate 50 mg PO DAILY 04/06/18 05/06/18 metoprolol succinate 100 mg PO DAILY 04/06/18 05/06/18 terazosin 2 cap PO BEDTIME 04/06/18 05/06/18 Previous Rx's Medication Instructions Recorded furosemide 40 mg PO DAILY #30 tab 05/09/18 oxycodone-acetaminophen [Percocet] 1 tab PO Q4-6H PRN #10 tab 07/08/18 Allergies Allergy/AdvReac Type Severity Reaction Status Date / Time No Known Drug Allergies Allergy Verified 07/08/18 12:53 Review of Systems <Isabel Caldera PA-C - Last Filed: 05/26/19 21:08> Review of Systems ROS Unobtainable: All systems reviewed & are unremarkable except as noted in HPI and below PFSH <Isabel Caldera PA-C - Last Filed: 05/26/19 21:08> Medical History (Updated 05/26/19 @ 20:13 by Isabel Caldera PA-C) Allergic rhinitis (Chronic) Atrial fibrillation (Chronic) BPH (benign prostatic hyperplasia) (Chronic) Chronic renal failure (Chronic) Congestive heart failure (Chronic) Coronary artery disease (Chronic) Hyperlipidemia (Chronic) Hypertension (Chronic) Surgical History 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 HEENT: PERRL, EOMI, no scleral icterus, conjunctivae pink NECK: Supple LUNGS: Clear to auscultation bilaterally with coarse breath sounds, no cough. HEART: Rate and rhythm regular, normal S1 and S2, no S3 or S4. ABDOMEN: Soft, nondistended, bowel sounds present x 4 quadrants, no masses palpable, no hepatosplenomegaly. Mild generalized tenderness without guarding or rebound EXTREMITIES: Mild bilateral pitting, no calf tenderness DERMATOLOGIC: No jaundice or exanthem NEUROLOGIC: Alert and oriented with normal speech and coordination Initial Vital Signs Initial Vital Signs: Vital Signs Temperature 99.0 F 05/26/19 16:44 Pulse Rate 91 H 05/26/19 16:44 Respiratory Rate 05/26/19 16:44 Blood Pressure 156/84 H 05/26/19 16:44 Pulse Oximetry 91 05/26/19 16:44 <Lauren Freedman DO - Last Filed: 05/27/19 21:28> Initial Vital Signs Initial Vital Signs: Vital Signs Temperature 99.0 F 05/26/19 16:44 Pulse Rate 91 H 05/26/19 16:44 Respiratory Rate 05/26/19 16:44 Blood Pressure 156/84 H 05/26/19 16:44 Pulse Oximetry 91 05/26/19 16:44 Course <Isabel Caldera PA-C - Last Filed: 05/26/19 21:08> Additional Information: Patient was sleeping comfortably during his stay. After daughter arrived, he ambulated to restroom and back without difficulty, ate half a sandwich and drink milk without any vomiting or diarrhea. Discussed that these gradually worsening symptoms could be part of his chronic kidney disease. No clear indication for hospital admission this evening however I advised that he needs to follow up on Tuesday with primary care and also make sure to set up nephrology appointment for which he has been referred. Advised he does need further workup for appetite loss if not improving, and also advised return to ED if any acutely worsening symptoms in the interim. He is agreeable. Findings also discussed with he and his daughter together and both are in agreement with this plan. Orders Ordered: Discontinued Medications Sodium Chloride (Normal Saline 0.9%) 1,000 mls @ 500 mls/hr IV BOLUS ONE Stop: 05/26/19 19:09 Last Infusion: 05/26/19 19:11 Dose: 0 mls/hr Admin: 05/26/19 17:20 Dose: 500 mls/hr Ondansetron HCl (Zofran) 4 mg IV NOW ONE Stop: 05/26/19 17:11 Last Admin: 05/26/19 17:20 Dose: 4 mg Vital Signs - 8 hr 05/26/19 16:44 05/26/19 17:59 05/26/19 18:05 Temperature 99.0 F Pulse Rate 91 H 79 Respiratory Rate 20 18 16 Blood Pressure 156/84 H Blood Pressure [Right Arm] 180/81 H Pulse Oximetry 91 99 88 L 05/26/19 18:14 05/26/19 19:15 05/26/19 20:32 Temperature 99.8 F H Pulse Rate 78 78 72 Respiratory Rate 16 16 16 Blood Pressure 160/73 H Blood Pressure [Right Arm] 171/83 H 160/78 H Pulse Oximetry 95 92 92 <Lauren Freedman DO - Last Filed: 05/27/19 21:28> Orders Ordered: Discontinued Medications Sodium Chloride (Normal Saline 0.9%) 1,000 mls @ 500 mls/hr IV BOLUS ONE Stop: 05/26/19 19:09 Last Infusion: 05/26/19 19:11 Dose: 0 mls/hr Admin: 05/26/19 17:20 Dose: 500 mls/hr Ondansetron HCl (Zofran) 4 mg IV NOW ONE Stop: 05/26/19 17:11 Last Admin: 05/26/19 17:20 Dose: 4 mg Vital Signs - 8 hr 05/26/19 16:44 05/26/19 17:59 05/26/19 18:05 Temperature 99.0 F Pulse Rate 91 H 79 Respiratory Rate 20 18 16 Blood Pressure 156/84 H Blood Pressure [Right Arm] 180/81 H Pulse Oximetry 91 99 88 L 05/26/19 18:14 05/26/19 19:15 05/26/19 20:32 Temperature 99.8 F H Pulse Rate 78 78 72 Respiratory Rate 16 16 16 Blood Pressure 160/73 H Blood Pressure [Right Arm] 171/83 H 160/78 H Pulse Oximetry 95 92 92 MDM - Nausea/Vomiting/Diarrhea <Isabel Caldera PA-C - Last Filed: 05/26/19 21:08> Lab Data Attestation: I reviewed the patient's lab results. Result diagrams: 05/26/19 17:03 05/26/19 17:03 Lab Results 05/26/19 05/26/19 05/26/19 Range/Units 17:03 17:03 17:03 WBC 9.2 (4.5-11.0) X10^3/uL RBC 4.33 L (4.5-5.9) X10^6/uL Hgb 10.9 L (13.5-17.5) g/dL Hct 33.5 L (41-53) % MCV 77.2 L (80-100) fL MCH 25.2 L (26-34) PG MCHC 32.6 (30-36) % RDW 20.3 H (11.6-14.8) % Plt Count 172 (150-400) X10^3/uL Neut % (Auto) 92.3 H (50-75) % Lymph % (Auto) 3.5 L (25-40) % [place] % (Auto) 3.8 (3-14) % Eos % (Auto) 0.2 L (2-4) % Baso % (Auto) 0.2 (0-2) % Neut # (Auto) 8500 H (5787-2511) /uL Lymph # (Auto) 300 L (8641-2168) /uL [place] # (Auto) 400 (0-900) /uL Eos # (Auto) 0 (0-450) /uL Baso # (Auto) 0 (0-100) /uL RBC Morphology Not Reportable Hypochromasia 2+ H Anisocytosis 3+ H Microcytosis 2+ H Sodium 138 (137-145) mmol/L Potassium 3.8 (3.4-5.1) mmol/L Chloride 101 (98-107) mmol/L Carbon Dioxide 24 (22-32) mmol/L BUN 19 (9-20) mg/dL Creatinine 1.70 H (0.66-1.25) mg/dL Estimated GFR 39.0 L (>60) mL/min BUN/Creatinine Ratio 11.2 (6-22) Glucose 198 H (80-110) mg/dL Calcium 9.0 (8.4-10.2) mg/dL Total Bilirubin 0.9 (0.2-1.3) mg/dL AST 33 (17-59) IU/L ALT 61 (21-72) IU/L Alkaline Phosphatase 142 H (38-126) U/L Total Protein 7.1 (6.3-8.2) g/dL Albumin 3.6 (3.5-5.0) g/dL Globulin 3.5 (1.7-4.1) g/dL Albumin/Globulin Ratio 1.0 (1.0-2.8) Lipase 78 Cancelled (23-300) U/L Urine RBC (0-5/HPF) Urine WBC (0-5/HPF) Ur Squamous Epith Cells (0-5/HPF) Urine Bacteria (None) Ur Culture Indicated? 05/26/19 Range/Units 19:10 WBC (4.5-11.0) X10^3/uL RBC (4.5-5.9) X10^6/uL Hgb (13.5-17.5) g/dL Hct (41-53) % MCV (80-100) fL MCH (26-34) PG MCHC (30-36) % RDW (11.6-14.8) % Plt Count (150-400) X10^3/uL Neut % (Auto) (50-75) % Lymph % (Auto) (25-40) % [place] % (Auto) (3-14) % Eos % (Auto) (2-4) % Baso % (Auto) (0-2) % Neut # (Auto) (4048-9370) /uL Lymph # (Auto) (0896-8315) /uL [place] # (Auto) (0-900) /uL Eos # (Auto) (0-450) /uL Baso # (Auto) (0-100) /uL RBC Morphology Hypochromasia Anisocytosis Microcytosis Sodium (137-145) mmol/L Potassium (3.4-5.1) mmol/L Chloride (98-107) mmol/L Carbon Dioxide (22-32) mmol/L BUN (9-20) mg/dL Creatinine (0.66-1.25) mg/dL Estimated GFR (>60) mL/min BUN/Creatinine Ratio (6-22) Glucose (80-110) mg/dL Calcium (8.4-10.2) mg/dL Total Bilirubin (0.2-1.3) mg/dL AST (17-59) IU/L ALT (21-72) IU/L Alkaline Phosphatase (38-126) U/L Total Protein (6.3-8.2) g/dL Albumin (3.5-5.0) g/dL Globulin (1.7-4.1) g/dL Albumin/Globulin Ratio (1.0-2.8) Lipase (23-300) U/L Urine RBC 5-10/hpf H (0-5/HPF) Urine WBC 0-1/hpf (0-5/HPF) Ur Squamous Epith Cells 0-1 /hpf (0-5/HPF) Urine Bacteria None seen (None) Ur Culture Indicated? Culture not indicate Urine Dip Bedside Urine Glucose Negative Bedside Urine Bilirubin + 1 Bedside Urine Ketone +/- 5 Urine Specific [place] 1.015 Bedside Urine Occult Blood + Bedside Urine pH 6.5 Bedside Urine Protein ++ 100 Bedside Urine Urobilinogen 1+ 2mg Bedside Urine Nitrite - Negative Bedside Urine Leukocytes - Negative Esterase Imaging Data Abdominal x-ray: Radiologist's impression: [address] [address] XRay Report Signed Patient: Aba Ackerman FMR#: [id number] : 8Acct:[id number] Age/Sex: 78 / MDate of Service: 05/26/19 Loc: ED Accession Number: [id number] Procedure: XR acute abdomen series Ordering Provider: Isabel Caldera P.A-C PROCEDURE: XR ACUTE ABDOMEN SERIES INDICATIONS: v/d, pain TECHNIQUE: One view chest and two views of the abdomen were acquired. COMPARISON: None. FINDINGS: Surgical changes and devices: Median sternotomy wires and prosthetic heart valve are seen. Chest: Left basilar atelectasis is noted. Heart size is enlarged. No significant pleural effusions. No pneumoperitoneum. Abdomen: Bowel gas pattern is normal. No suspicious calcifications. Visualized solid organ contours appear normal. Bones: No suspicious bony lesions. IMPRESSION: No evidence of obstruction or gross free air. Left basilar atelecta sis. Cardiomegaly. No focal infiltrate or pneumothorax. Dictated by: Young Caro M.D. on 05/26/2019 at 18:33 Approved by: Young Caro M.D. on 05/26/2019 at 18:34 <Lauren Freedman DO - Last Filed: 05/27/19 21:28> Lab Data Lab Results 05/26/19 05/26/19 05/26/19 Range/Units 17:03 17:03 17:03 WBC 9.2 (4.5-11.0) X10^3/uL RBC 4.33 L (4.5-5.9) X10^6/uL Hgb 10.9 L (13.5-17.5) g/dL Hct 33.5 L (41-53) % MCV 77.2 L (80-100) fL MCH 25.2 L (26-34) PG MCHC 32.6 (30-36) % RDW 20.3 H (11.6-14.8) % Plt Count 172 (150-400) X10^3/uL Neut % (Auto) 92.3 H (50-75) % Lymph % (Auto) 3.5 L (25-40) % [place] % (Auto) 3.8 (3-14) % Eos % (Auto) 0.2 L (2-4) % Baso % (Auto) 0.2 (0-2) % Neut # (Auto) 8500 H (5387-3446) /uL Lymph # (Auto) 300 L (3104-7421) /uL [place] # (Auto) 400 (0-900) /uL Eos # (Auto) 0 (0-450) /uL Baso # (Auto) 0 (0-100) /uL RBC Morphology Not Reportable Hypochromasia 2+ H Anisocytosis 3+ H Microcytosis 2+ H Sodium 138 (137-145) mmol/L Potassium 3.8 (3.4-5.1) mmol/L Chloride 101 (98-107) mmol/L Carbon Dioxide 24 (22-32) mmol/L BUN 19 (9-20) mg/dL Creatinine 1.70 H (0.66-1.25) mg/dL Estimated GFR 39.0 L (>60) mL/min BUN/Creatinine Ratio 11.2 (6-22) Glucose 198 H (80-110) mg/dL Calcium 9.0 (8.4-10.2) mg/dL Total Bilirubin 0.9 (0.2-1.3) mg/dL AST 33 (17-59) IU/L ALT 61 (21-72) IU/L Alkaline Phosphatase 142 H (38-126) U/L Total Protein 7.1 (6.3-8.2) g/dL Albumin 3.6 (3.5-5.0) g/dL Globulin 3.5 (1.7-4.1) g/dL Albumin/Globulin Ratio 1.0 (1.0-2.8) Lipase 78 Cancelled (23-300) U/L Urine RBC (0-5/HPF) Urine WBC (0-5/HPF) Ur Squamous Epith Cells (0-5/HPF) Urine Bacteria (None) Ur Culture Indicated? 05/26/19 Range/Units 19:10 WBC (4.5-11.0) X10^3/uL RBC (4.5-5.9) X10^6/uL Hgb (13.5-17.5) g/dL Hct (41-53) % MCV (80-100) fL MCH (26-34) PG MCHC (30-36) % RDW (11.6-14.8) % Plt Count (150-400) X10^3/uL Neut % (Auto) (50-75) % Lymph % (Auto) (25-40) % [place] % (Auto) (3-14) % Eos % (Auto) (2-4) % Baso % (Auto) (0-2) % Neut # (Auto) (2206-5035) /uL Lymph # (Auto) (1803-9620) /uL [place] # (Auto) (0-900) /uL Eos # (Auto) (0-450) /uL Baso # (Auto) (0-100) /uL RBC Morphology Hypochromasia Anisocytosis Microcytosis Sodium (137-145) mmol/L Potassium (3.4-5.1) mmol/L Chloride (98-107) mmol/L Carbon Dioxide (22-32) mmol/L BUN (9-20) mg/dL Creatinine (0.66-1.25) mg/dL Estimated GFR (>60) mL/min BUN/Creatinine Ratio (6-22) Glucose (80-110) mg/dL Calcium (8.4-10.2) mg/dL Total Bilirubin (0.2-1.3) mg/dL AST (17-59) IU/L ALT (21-72) IU/L Alkaline Phosphatase (38-126) U/L Total Protein (6.3-8.2) g/dL Albumin (3.5-5.0) g/dL Globulin (1.7-4.1) g/dL Albumin/Globulin Ratio (1.0-2.8) Lipase (23-300) U/L Urine RBC 5-10/hpf H (0-5/HPF) Urine WBC 0-1/hpf (0-5/HPF) Ur Squamous Epith Cells 0-1 /hpf (0-5/HPF) Urine Bacteria None seen (None) Ur Culture Indicated? Culture not indicate Urine Dip Bedside Urine Glucose Negative Bedside Urine Bilirubin + 1 Bedside Urine Ketone +/- 5 Urine Specific [place] 1.015 Bedside Urine Occult Blood + Bedside Urine pH 6.5 Bedside Urine Protein ++ 100 Bedside Urine Urobilinogen 1+ 2mg Bedside Urine Nitrite - Negative Bedside Urine Leukocytes - Negative Esterase Discharge Plan Departure Patient Disposition: Home Clinical Impression: Loss of appetite Nausea & vomiting Qualifiers: Vomiting type: unspecified Vomiting Intractability: non-intractable Qualified Code(s): R11.2 - Nausea with vomiting, unspecified Diarrhea Qualifiers: Diarrhea type: unspecified type Qualified Code(s): R19.7 - Diarrhea, unspecifie d Discharge Date/Time: 05/26/19 20:32 Interventions: ED Discharge Assessment Last Done: 05/26/19 20:32 Instructions: Chronic Renal Failure, DI for Nausea -- Adult, DI for Poor Appet ite Activity Restrictions/Additional Instructions: Since you are able to eat and drink and had not had any recurrent vomiting or diarrhea while you were here, you can return home. There are no clear new findings on your studies to explain your symptoms. They could be related to your chronic kidney issues. As we talked about, you should return here if you have any acutely worsening symptoms, i.e. unable to keep down food or fluids, or new symptoms such as fever. Please be sure to call your PCP 1st thing on Tuesday, let them know you were seen in the emergency room and [place] Further workup should be done if you are not feeling better or your appetite does not get better. Also please be sure to follow through with your nephrology referral. Please drink clear fluids and eat small amounts of food every couple of hours to help with nausea. Prescriptions: No Action aspirin 81 mg Tablet,Delayed Release (Dr/Ec) 81 mg PO DAILY Qty: 0 RF: 0 furosemide 40 mg tablet 40 mg PO DAILY Qty: 30 RF: 0 oxycodone-acetaminophen [Percocet] 5-325 mg tablet 1 tab PO Q4-6H PRN (Reason: pain/gout) Qty: 10 RF: 0 atorvastatin 40 mg tablet 40 mg PO DAILY RF: 0 donepezil 5 mg tablet 5 mg PO BEDTIME RF: 0 metoprolol succinate 100 mg tablet extended release 24 hr 100 mg PO DAILY RF: 0 amlodipine 10 mg tablet 10 mg PO DAILY RF: 0 apixaban 2.5 mg tablet 2.5 mg PO BID RF: 0 metoprolol succinate 50 mg Tablet Extended Release 24 Hr 50 mg PO DAILY RF: 0 terazosin 10 mg capsule 2 cap PO BEDTIME RF: 0 fluticasone furoate 27.5 mcg/actuation [place],Suspension 1 spray Intranasal PRN PRN (Reason: Congestion) RF: 0 Referrals: Nora Pinon MD [Primary Care Provider] - <Lauren Freedman DO - Last Filed: 05/27/19 21:28> Cosign ED Attending Cosignature Attestation: I was immediately available in the department for consultation. Documentation has been reviewed. I agree with assessment and plan.
[2019-05-26] MEDS: SODIUM CHLORIDE 0.9% 1,000 ML 500 ML IV (17:20)
[2019-05-26] MEDS: ONDANSETRON 4 MG/2 ML INJ IV (17:20)
[2019-05-26 17:24] LABS: Add Manual Diff / Slide Review NO; Basophils Absolute Auto 0 /uL (0-100); Basophils Percent Auto 0.2 % (0-2); Eosinophils Absolute Auto 0 /uL (0-450); Eosinophils Percent Auto 0.2 % (2-4); Hematocrit 33.5 % (41-53); Hemoglobin 10.9 g/dL (13.5-17.5); Lymphocytes Absolute Auto 300 /uL (1100-4500); Lymphocytes Percent Auto 3.5 % (25-40); Mean Corpuscular HGB Conc 32.6 % (30-36); Mean Corpuscular Hemoglobin 25.2 PG (26-34); Mean Corpuscular Volume 77.2 fL (80-100); Monocytes Absolute Auto 400 /uL (0-900); Monocytes Percent Auto 3.8 % (3-14); Neutrophils Absolute Auto 8500 /uL (1500-7000); Neutrophils Percent Auto 92.3 % (50-75); Platelet Count 172 X10^3/uL (150-400); Red Blood Cell Count 4.33 X10^6/uL (4.5-5.9); Red Cell Distribution Width 20.3 % (11.6-14.8); White Blood Cell Count 9.2 X10^3/uL (4.5-11.0)
[2019-05-26 17:27] LABS: Alanine Aminotransferase 61 IU/L (21-72); Albumin 3.6 g/dL (3.5-5.0); Alkaline Phosphatase 142 U/L (38-126); Aspartate Aminotransferase 33 IU/L (17-59); BUN Creatinine Ratio 11.2 (6-22); Bilirubin Total 0.9 mg/dL (0.2-1.3); Blood Urea Nitrogen 19 mg/dL (9-20); Carbon Dioxide 24 mmol/L (22-32); Chloride 101 mmol/L (98-107); Globulin 3.5 g/dL (1.7-4.1); Glucose 198 mg/dL (80-110); HEMOLYSIS < 15 (0-50); Lipase 78 U/L (23-300); Potassium 3.8 mmol/L (3.4-5.1); Sodium 138 mmol/L (137-145); Total Protein 7.1 g/dL (6.3-8.2)
--- NOTE | 2019-05-26 17:27 | DI.RAD.S_ITS ---
PROCEDURE: XR ACUTE ABDOMEN SERIES INDICATIONS: v/d, pain TECHNIQUE: One view chest and two views of the abdomen were acquired. COMPARISON: None. FINDINGS: Surgical changes and devices: Median sternotomy wires and prosthetic heart valve are seen. Chest: Left basilar atelectasis is noted. Heart size is enlarged. No significant pleural effusions. No pneumoperitoneum. Abdomen: Bowel gas pattern is normal. No suspicious calcifications. Visualized solid organ contours appear normal. Bones: No suspicious bony lesions. IMPRESSION: No evidence of obstruction or gross free air. Left basilar atelectasis. Cardiomegaly. No focal infiltrate or pneumothorax. Dictated by: Young Caro M.D. on 05/26/2019 at 18:33 Approved by: Young Caro M.D. on 05/26/2019 at 18:34
[2019-05-26 17:59] VITALS: BP 180/81; PULSE 79; RESP 18; O2SAT 99
[2019-05-26 18:05] VITALS: RESP 16; O2SAT 88
[2019-05-26 18:14] VITALS: BP 171/83; PULSE 78; RESP 16; O2SAT 95
[2019-05-26 18:52] LABS: Anisocytosis 3+; Hypochromasia 2+; Microcytosis 2+
[2019-05-26 19:15] VITALS: BP 160/78; PULSE 78; RESP 16; O2SAT 92
[2019-05-26 19:17] LABS: Bacteria Urine None Seen
[2019-05-26 20:05] LABS: RBC Urine 5-10/HPF (0-5/HPF); Squamous Epithelial Cell Urine 0-1 /HPF (0-5/HPF); WBC Urine 0-1/HPF (0-5/HPF)
[2019-05-26 20:32] VITALS: BP 160/73; PULSE 72; RESP 16; TEMP 37.7; O2SAT 92
== END 2019-05-26 20:32 | disposition home or self-care (01) ==
PROVIDERS: Emergency Provider Internal Medicine; PCP Internal Medicine
DX: R63.0 Anorexia (principal); R11.2 Nausea with vomiting, unspecified; R19.7 Diarrhea, unspecified
CPT/HCPCS: 36591; 74022; 80053; 81003; 81015; 83690; 85025; 96361; 96374; 99283; 99284; J2405

== ENCOUNTER 2019-05-31 14:48 | Emergency (ER) | payer MEDICARE, OTHER, SELFPAY ==
[2018-05-06 21:50] VITALS: BMI 29.1
[2019-05-31 15:17] VITALS: BP 172/106; PULSE 117; RESP 20; TEMP 38.6; O2SAT 95
--- NOTE | 2019-05-31 15:19 | DI.RAD.S_ITS ---
PROCEDURE: XR CHEST 1V INDICATIONS: cough TECHNIQUE: One view of the chest was acquired. COMPARISON: [facility], CR, XR ACUTE ABDOMEN SERIES, 05/26/2019, 17:31. [facility], CR, CHEST 1 VIEW, 11/21/2016, 14:24. [facility], CR, CHEST 1 VIEW, 11/17/2016, 11:43. [facility], CR, CHEST 1 VIEW, 03/05/2017, 17:00. [facility], CR, XR CHEST 2V, 04/06/2018, 14:36. [facility], CR, XR CHEST 1V, 05/06/2018, 18:01. FINDINGS: Surgical changes and devices: Sternotomy and a cardiac itself prosthesis. The first and the third superior sternal wires are fractured. Lungs and pleura: Left basilar infiltrate. Small effusions may be present. No pneumothorax. Mediastinum: Mediastinal contours appear normal. Heart size is normal. Bones and chest wall: No suspicious bony lesions. Overlying soft tissues appear unremarkable. IMPRESSION: Left basilar infiltrate and small pleural effusions bilaterally. Dictated by: Kayla Pritchett M.D. on 05/31/2019 at 15:42 Approved by: Kayla Pritchett M.D. on 05/31/2019 at 15:46
--- NOTE | 2019-05-31 15:19 | ED_ITS ---
HPI - Altered Mental Status General Chief Complaint: Fever Stated Complaint: coughing,diarrhea,vomiting Time Seen by Provider: 05/31/19 14:53 Source: patient, family and old records reviewed Mode of arrival: ambulatory Limitations: no limitations History of Present Illness HPI narrative: Patient is an 78-year-old male presenting with confusion weakness vomiting diarrhea cough. It has been ongoing the daughter states for 2 weeks. He was seen evaluated here 5 days ago he had blood work and x-ray for the vomiting and diarrhea discharged home. He really has not had much to eat or drink over the past few days daughter states he definitely more confused. He is currently febrile at 101.4F. He also states that he has been coughing mostly at night he does not cough anything up. He denies shortness of breath with exertion, no chest pain no heart palpitations. MD complaint: altered mental status and confusion Timing confirmed by: spouse and family member Consistency of symptoms: getting worse Associated symptoms: cough, loss of appetite, nausea/vomiting and diarrhea Related Data Home Medications Medication Instructions Recorded Confirmed aspirin 81 mg PO DAILY #0 05/25/10 05/31/19 amlodipine 10 mg PO DAILY 04/06/18 05/31/19 apixaban 2.5 mg PO BID 04/06/18 05/31/19 atorvastatin 40 mg PO DAILY 04/06/18 05/31/19 donepezil 5 mg PO BEDTIME 04/06/18 05/06/18 fluticasone furoate 1 spray INTRANASAL PRN PRN 04/06/18 05/31/19 metoprolol succinate 50 mg PO DAILY 04/06/18 05/06/18 terazosin 20 mg PO BEDTIME 04/06/18 05/31/19 metoprolol succinate [Toprol XL] 100 mg PO DAILY 05/31/19 05/31/19 Previous Rx's Medication Instructions Recorded furosemide 40 mg PO DAILY #30 tab 05/09/18 Allergies Allergy/AdvReac Type Severity Reaction Status Date / Time No Known Drug Allergies Allergy Verified 05/31/19 15:21 Review of Systems Review of Systems ROS Unobtainable: All systems reviewed & are unremarkable except as noted in HPI and below Constitutional Reports body ache(s), Reports fatigue, Reports fever(s) and Reports poor appetite ENT Ears, Nose, Mouth, and Throat: Denies change in voice, Denies vertigo, Denies dizziness, Denies neck pain and Denies sore throat Cardiovascular Denies chest pain, Denies syncope, Reports irregular heart rhythm, Denies dyspnea and Denies dyspnea on exertion Respiratory Reports cough, Denies dyspnea, Denies dyspnea on exertion, Denies stridor and Denies wheezing Gastrointestinal Gastrointestinal: Reports abdominal pain, Reports diarrhea, Reports nausea and Reports vomiting Musculoskeletal Denies neck pain Integumentary/Breasts Denies pruritus, Denies erythema, Denies rash and Denies wounds Neurologic Denies vertigo, Denies dizziness and Denies syncope Endocrine Reports fatigue Allergic/Immunologic Denies wheezing Exam Initial Vital Signs Initial Vital Signs: Vital Signs Temperature 101.4 F H 05/31/19 15:17 Pulse Rate 117 H 05/31/19 15:17 Respiratory Rate 20 05/31/19 15:17 Blood Pressure 172/106 H 05/31/19 15:17 Pulse Oximetry 95 05/31/19 15:17 GENERAL: Alert week elderly male and in [no acute] distress. HEENT: Head atraumatic,EOMI, pupils reactive, face symmetric, dry mucous membranes CARDIOVASCULAR: Tachycardic regular no murmur RESPIRATORY: Breath sounds equal bilaterally, no wheezes rales or rhonchi. ABDOMEN: Soft, right upper quadrant tenderness EXTREMITIES: Normal range of motion, no clubbing or edema. Neurovascularly intact NEUROLOGICAL: Alert and oriented x4.Normal gait and speech. Cranial nerves II through XII grossly intact. SKIN: Warm, dry, no laceration, no petechiae, no rashes or lesions. Course Orders Ordered: ED Orders 05/31/19 15:19 CT abdomen pelvis w con Stat XR chest 1V Stat EKG-12 Lead Stat 05/31/19 15:22 Complete Blood Count AUTO DIFF Stat Comprehensive Metabolic Panel Stat Lactate (Lactic Acid) Stat Lipase Stat Procalcitonin Stat Troponin & CK Cardiac Panel Stat 05/31/19 15:44 Blood Culture Stat 05/31/19 15:45 Urine Microscopic Stat 05/31/19 16:45 US abdomen limited Stat Sodium Chloride (Normal Saline 0.9%) 1,000 mls @ 200 mls/hr IV BOLUS ONE Stop: 05/31/19 20:26 Last Admin: 05/31/19 15:36 Dose: 200 mls/hr Discontinued Medications Acetaminophen (Tylenol) 975 mg PO NOW ONE Stop: 05/31/19 15:40 Last Admin: 05/31/19 15:41 Dose: 975 mg Piperacillin/Tazobactam/Dextrose (Zosyn) 3.375 gm in 50 mls @ 100 mls/hr IV NOW ONE Stop: 05/31/19 16:20 Last Infusion: 05/31/19 16:49 Dose: 0 mls/hr Admin: 05/31/19 16:10 Dose: 100 mls/hr Ondansetron HCl (Zofran) 4 mg IV NOW ONE Stop: 05/31/19 15:20 Last Admin: 05/31/19 15:36 Dose: 4 mg Consultations Consultation #1: Dr. Prater, surgery in the ED to see and evaluate patient. Due to patient's significant cardiac history certainly high risk for any surgery recommends transferring. Time: 16:17 Consultation #2: Dr. Morton, Surgery at [facility] in [place], updated on patient's symptoms and test results. Recommend patient be admitted to the hospitalist any happy to consult and see patient. Time: 17:05 Consultation #3: Dr. Dias, hospitalist in [place] has been updated on patient's symptoms and test results. Accepts patient for transfer. Time: 17:10 Vital Signs - 8 hr 05/31/19 15:17 05/31/19 16:02 05/31/19 16:43 Temperature 101.4 F H 100.1 F H Pulse Rate 117 H 107 H 101 H Respiratory Rate 20 21 20 Blood Pressure 172/106 H Blood Pressure [Left Arm] 187/97 H 158/87 H Pulse Oximetry 95 96 95 MDM - Altered Mental Status Lab Data Attestation: I reviewed the patient's lab results. Result diagrams: 05/31/19 15:22 05/31/19 15:22 Lab Results 05/31/19 05/31/19 05/31/19 Range/Units 15:22 15:22 15:22 WBC 17.6 H (4.5-11.0) X10^3/uL RBC 4.47 L (4.5-5.9) X10^6/uL Hgb 11.1 L (13.5-17.5) g/dL Hct 33.8 L (41-53) % MCV 75.6 L (80-100) fL MCH 24.7 L (26-34) PG MCHC 32.7 (30-36) % RDW 20.9 H (11.6-14.8) % Plt Count 362 (150-400) X10^3/uL Neut % (Auto) 93.2 H (50-75) % Lymph % (Auto) 2.2 L (25-40) % Glenn % (Auto) 4.2 (3-14) % Eos % (Auto) 0.1 L (2-4) % Baso % (Auto) 0.3 (0-2) % Neut # (Auto) 24927 H (1517-6592) /uL Lymph # (Auto) 400 L (1217-2972) /uL Glenn # (Auto) 700 (0-900) /uL Eos # (Auto) 0 (0-450) /uL Baso # (Auto) 0 (0-100) /uL RBC Morphology See below Hypochromasia 1+ H Poikilocytosis 1+ H Anisocytosis 2+ H Microcytosis 1+ H Sodium 141 (137-145) mmol/L Potassium 3.4 (3.4-5.1) mmol/L Chloride 104 (98-107) mmol/L Carbon Dioxide 25 (22-32) mmol/L BUN 23 H (9-20) mg/dL Creatinine 1.60 H (0.66-1.25) mg/dL Estimated GFR 41.8 L (>60) mL/min BUN/Creatinine Ratio 14.4 (6-22) Glucose 200 H (80-110) mg/dL Lactate (0.7-2.1) mmol/L Calcium 9.1 (8.4-10.2) mg/dL Total Bilirubin 0.8 (0.2-1.3) mg/dL AST 115 H (17-59) IU/L ALT 123 H (21-72) IU/L Alkaline Phosphatase 269 H D (38-126) U/L Total Creatine Kinase 163 (55-170) U/L CK-MB (CK-2) 1.02 (<2.37) ng/mL CK-MB (CK-2) Rel Index 0.6 L (1.5-5.0) % Troponin I 0.016 (0.01-0.034) ng/mL Total Protein 7.1 (6.3-8.2) g/dL Albumin 3.4 L (3.5-5.0) g/dL Globulin 3.7 (1.7-4.1) g/dL Albumin/Globulin Ratio 0.9 L (1.0-2.8) Lipase (23-300) U/L Procalcitonin 37.46 H (<0.5) ng/mL Urine RBC (0-5/HPF) Urine WBC (0-5/HPF) Ur Squamous Epith Cells (0-5/HPF) Amorphous Sediment Urine Bacteria (None) Hyaline Casts (None) Granular Casts (None) Urine Mucus (Negative) Ur Culture Indicated? 05/31/19 05/31/19 05/31/19 Range/Units 15:22 15:22 15:45 WBC (4.5-11.0) X10^3/uL RBC (4.5-5.9) X10^6/uL Hgb (13.5-17.5) g/dL Hct (41-53) % MCV (80-100) fL MCH (26-34) PG MCHC (30-36) % RDW (11.6-14.8) % Plt Count (150-400) X10^3/uL Neut % (Auto) (50-75) % Lymph % (Auto) (25-40) % Glenn % (Auto) (3-14) % Eos % (Auto) (2-4) % Baso % (Auto) (0-2) % Neut # (Auto) (6674-2866) /uL Lymph # (Auto) (6869-9279) /uL Glenn # (Auto) (0-900) /uL Eos # (Auto) (0-450) /uL Baso # (Auto) (0-100) /uL RBC Morphology Hypochromasia Poikilocytosis Anisocytosis Microcytosis Sodium (137-145) mmol/L Potassium (3.4-5.1) mmol/L Chloride (98-107) mmol/L Carbon Dioxide (22-32) mmol/L BUN (9-20) mg/dL Creatinine (0.66-1.25) mg/dL Estimated GFR (>60) mL/min BUN/Creatinine Ratio (6-22) Glucose (80-110) mg/dL Lactate 2.6 H (0.7-2.1) mmol/L Calcium (8.4-10.2) mg/dL Total Bilirubin (0.2-1.3) mg/dL AST (17-59) IU/L ALT (21-72) IU/L Alkaline Phosphatase (38-126) U/L Total Creatine Kinase (55-170) U/L CK-MB (CK-2) (<2.37) ng/mL CK-MB (CK-2) Rel Index (1.5-5.0) % Troponin I (0.01-0.034) ng/mL Total Protein (6.3-8.2) g/dL Albumin (3.5-5.0) g/dL Globulin (1.7-4.1) g/dL Albumin/Globulin Ratio (1.0-2.8) Lipase 288 D (23-300) U/L Procalcitonin (<0.5) ng/mL Urine RBC 0-1/hpf (0-5/HPF) Urine WBC 1-5/hpf (0-5/HPF) Ur Squamous Epith Cells 0-1 /hpf (0-5/HPF) Amorphous Sediment 1+ Urine Bacteria None seen (None) Hyaline Casts 1-5/lpf (None) Granular Casts 0-1/lpf (None) Urine Mucus 1+ H (Negative) Ur Culture Indicated? Cult not indicated 05/31/19 Range/Units 17:39 WBC (4.5-11.0) X10^3/uL RBC (4.5-5.9) X10^6/uL Hgb (13.5-17.5) g/dL Hct (41-53) % MCV (80-100) fL MCH (26-34) PG MCHC (30-36) % RDW (11.6-14.8) % Plt Count (150-400) X10^3/uL Neut % (Auto) (50-75) % Lymph % (Auto) (25-40) % Glenn % (Auto) (3-14) % Eos % (Auto) (2-4) % Baso % (Auto) (0-2) % Neut # (Auto) (3825-1865) /uL Lymph # (Auto) (0352-3309) /uL Glenn # (Auto) (0-900) /uL Eos # (Auto) (0-450) /uL Baso # (Auto) (0-100) /uL RBC Morphology Hypochromasia Poikilocytosis Anisocytosis Microcytosis Sodium (137-145) mmol/L Potassium (3.4-5.1) mmol/L Chloride (98-107) mmol/L Carbon Dioxide (22-32) mmol/L BUN (9-20) mg/dL Creatinine (0.66-1.25) mg/dL Estimated GFR (>60) mL/min BUN/Creatinine Ratio (6-22) Glucose (80-110) mg/dL Lactate 1.3 (0.7-2.1) mmol/L Calcium (8.4-10.2) mg/dL Total Bilirubin (0.2-1.3) mg/dL AST (17-59) IU/L ALT (21-72) IU/L Alkaline Phosphatase (38-126) U/L Total Creatine Kinase (55-170) U/L CK-MB (CK-2) (<2.37) ng/mL CK-MB (CK-2) Rel Index (1.5-5.0) % Troponin I (0.01-0.034) ng/mL Total Protein (6.3-8.2) g/dL Albumin (3.5-5.0) g/dL Globulin (1.7-4.1) g/dL Albumin/Globulin Ratio (1.0-2.8) Lipase (23-300) U/L Procalcitonin (<0.5) ng/mL Urine RBC (0-5/HPF) Urine WBC (0-5/HPF) Ur Squamous Epith Cells (0-5/HPF) Amorphous Sediment Urine Bacteria (None) Hyaline Casts (None) Granular Casts (None) Urine Mucus (Negative) Ur Culture Indicated? Urine Dip Bedside Urine Glucose Negative Bedside Urine Bilirubin + 1 Bedside Urine Ketone - Negative Urine Specific [place] 1.015 Bedside Urine Occult Blood + Bedside Urine pH 6.0 Bedside Urine Protein + 30 Bedside Urine Urobilinogen 1+ 2mg Bedside Urine Nitrite - Negative Bedside Urine Leukocytes - Negative Esterase Imaging Data CT scan - abdomen: Radiologist's impression: PROCEDURE: CT ABDOMEN PELVIS W CON INDICATIONS: vomiting, pain, fever TECHNIQUE: After the administration of intravenous contrast, 5 mm thick sections acquired from the diaphragm to the symphysis. 5 mm coronal and sagittal reformats were acquired. For radiation dose reduction, the following was used: automated exposure control, adjustment of mA and/or kV according to patient size. COMPARISON: [facility], CR, XR ACUTE ABDOMEN SERIES, 05/26/2019, 17:31. FINDINGS: Image quality: Excellent. ABDOMEN: Lung bases: Incidental 5 mm pulmonary nodule at the right lung base, (3/8). Small bilateral pleural effusions. Post median sternotomy. Mitral valve prosthesis. Solid organs: Gallbladder is mildly distended measuring 4.5 cm in width. There is enhancement of the gallbladder wall. There is pericholecystic fluid as well as two calcified gallstones in the cystic duct, (4/31). There is low-density fluid tracking in the falciform ligament and subcapsular along the left liver. The larger component measures approximately 7.5 x 7 cm, (2/15). Liver is normal in size. No focal hepatic lesion. No biliary ductal dilatation. No calcified debris in the CBD. Pancreas enhances normally. No pancreatic ductal dilatation. Spleen is normal in size and enhancement. No adrenal nodules. The left kidney is severely atrophic with decreased enhancement compared to the right. Simple cyst at the superior pole measuring 1.9 cm. A few cortical hypodensities in the right kidney which are too small to further characterize. There is also minimal Scarring in the right kidney. No hydronephrosis. Peritoneum and bowel: No bowel obstruction. Trace free fluid in the pelvis and in the abdomen including along the margin of the liver. Nodes and vessels: No retroperitoneal or mesenteric adenopathy by size criteria. Aorta and inferior vena cava are normal in size. Extensive calcified aortoiliac plaque. Miscellaneous: No ventral hernias. PELVIS: Genitourinary: Small bladder diverticulum along the right margin, (4/11). Bladder wall thickness appears normal. Prostatomegaly. Miscellaneous: No inguinal hernias or adenopathy. Small intramuscular lipoma in the right groin. Bones: No suspicious bony lesions. Moderate DDD. No vertebral body compression fractures. IMPRESSION: 1. Acute cholecystitis with probable left hepatic subcapsular biloma. No intra hepatic ductal dilatation. 2. Chronic atrophy of the left kidney. 3. Small bilateral pleural effusions. 4. Incidental 5 mm pulmonary nodule at the right lung base. Follow up chest CT required only if at high risk high risk for pulmonary malignancy. Comment: Findings were discussed with Lauren Freedman DO at the time of dictation. Dictated by: Noe Tobias M.D. on 05/31/2019 at 15:47 Chest x-ray: Radiologist's impression: PROCEDURE: XR CHEST 1V INDICATIONS: cough TECHNIQUE: One view of the chest was acquired. COMPARISON: [facility], CR, XR ACUTE ABDOMEN SERIES, 05/26/2019, 17:31. [facility], CR, CHEST 1 VIEW, 11/21/2016, 14:24. [facility], CR, CHEST 1 VIEW, 11/17/2016, 11:43. [facility], CR, CHEST 1 VIEW, 03/05/2017, 17:00. [facility], CR, XR CHEST 2V, 04/06/2018, 14:36. [facility], CR, XR CHEST 1V, 05/06/2018, 18:01. FINDINGS: Surgical changes and devices: Sternotomy and a cardiac itself prosthesis. The first and the third superior sternal wires are fractured. Lungs and pleura: Left basilar infiltrate. Small effusions may be present. No pneumothorax. Mediastinum: Mediastinal contours appear normal. Heart size is normal. Bones and chest wall: No suspicious bony lesions. Overlying soft tissues appear unremarkable. IMPRESSION: Left basilar infiltrate and small pleural effusions bilaterally. Dictated by: Kayla Pritchett M.D. on 05/31/2019 at 15:42 US - abdomen: Radiologist's impression: PROCEDURE: US ABDOMEN LIMITED INDICATIONS: RUQ PAIN TECHNIQUE: Real-time scanning was performed of the abdominal and retroperitoneal organs, with image documentation. COMPARISON: [facility], CT, CT ABDOMEN PELVIS W CON, 05/31/2019, 15:26. FINDINGS: There are incidentally noted bilateral pleural effusions. Liver: The liver measures 16.5 cm in length and demonstrates normal echotexture. There is a questionable complex fluid collection along the inferior margin of the liver with internal echogenic septations. This measures approximately 8 cm in diameter. Gallbladder: The lateral wall measures up to 8.6 mm in diameter. Sludge is present within the gallbladder fundus. No sonographic Don's sign. Biliary ducts: Intrahepatic bile ducts are non-dilated. Extrahepatic bile duct caliber measures 8.1 mm. Normal is 6-7 mm or less in diameter, or 10 mm or less post-cholecystectomy. IMPRESSION: 1. Marked gallbladder wall thickening suspicious for acute cholecystitis. 2. Complex fluid collection at the inferior left hepatic margin. This finding is suspicious for a loculated biloma or abscess. These findings were discussed with Dr. Freedman at 4:47 PM on 05/31/19. 3. Bilateral pleural effusions. Dictated by: Nazia Shaffer M.D. on 05/31/2019 at 16:43 ECG Data Attestation: I personally reviewed and interpreted this ECG as follows: Prior ECG tracings: available for review Interpretation: Sinus tachycardia rate 114 peer interval [address] changes MDM Narrative Medical decision making narrative: Patient is high risk for surgery. He has cardiovascular disease and is on Eliquis. Also concern for rupture gallbladder according to Radiology on both CT and ultrasound. Patient has been hemodynamically stable while in the ED. His blood pressure has been normal his heart rate has improved his fever has improved. He has been given some IV fluids cautious due to CHF although he does not appear to be in failure at this time. He has not required anything for pain. Both the and daughter at bedside aware of transferring patient. He actually has been there in the past. Daughter Yumiko Bourgeois [phone] Critical Care Time Critical Care Time: Yes Total Critical Care Time: 30 Attestation: The high probability of a clinically significant, sudden or life threatening deterioration of the [cardiovascular] system(s) required my full and direct attention, intervention and personal management. The aggregate critical care time was 30 minutes. This time is in addition to time spent performing reported procedures but includes the following: [x] Data Review and interpretation [x] Patient assessment and monitoring of vital signs [x] Documentation [x] Medication orders and management Discharge Plan Departure Patient Disposition: [facility] Clinical Impression: Acute cholecystitis Prescriptions: No Action aspirin 81 mg Tablet,Delayed Release (Dr/Ec) 81 mg PO DAILY Qty: 0 RF: 0 furosemide 40 mg tablet 40 mg PO DAILY Qty: 30 RF: 0 atorvastatin 40 mg tablet 40 mg PO DAILY RF: 0 donepezil 5 mg tablet 5 mg PO BEDTIME RF: 0 amlodipine 10 mg tablet 10 mg PO DAILY RF: 0 apixaban 2.5 mg tablet 2.5 mg PO BID RF: 0 metoprolol succinate 50 mg Tablet Extended Release 24 Hr 50 mg PO DAILY RF: 0 terazosin 10 mg capsule 20 mg PO BEDTIME RF: 0 fluticasone furoate 27.5 mcg/actuation [place],Suspension 1 spray Intranasal PRN PRN (Reason: Congestion) RF: 0 metoprolol succinate [Toprol XL] 100 mg tablet extended release 24 hr 100 mg PO DAILY RF: 0 Referrals: Nora Pinon MD [Primary Care Provider] -
[2019-05-31] MEDS: ONDANSETRON 4 MG/2 ML INJ IV (15:36)
[2019-05-31] MEDS: SODIUM CHLORIDE 0.9% 1,000 ML 200 ML IV (15:36)
[2019-05-31] MEDS: ACETAMINOPHEN 325 MG TABLET 975 MG PO (15:41)
[2019-05-31 15:47] LABS: Bacteria Urine None Seen
[2019-05-31 15:49] LABS: Add Manual Diff / Slide Review NO; Basophils Absolute Auto 0 /uL (0-100); Basophils Percent Auto 0.3 % (0-2); Eosinophils Absolute Auto 0 /uL (0-450); Eosinophils Percent Auto 0.1 % (2-4); Hematocrit 33.8 % (41-53); Hemoglobin 11.1 g/dL (13.5-17.5); Lymphocytes Absolute Auto 400 /uL (1100-4500); Lymphocytes Percent Auto 2.2 % (25-40); Mean Corpuscular HGB Conc 32.7 % (30-36); Mean Corpuscular Hemoglobin 24.7 PG (26-34); Mean Corpuscular Volume 75.6 fL (80-100); Monocytes Absolute Auto 700 /uL (0-900); Monocytes Percent Auto 4.2 % (3-14); Neutrophils Absolute Auto 16400 /uL (1500-7000); Neutrophils Percent Auto 93.2 % (50-75); Platelet Count 362 X10^3/uL (150-400); Red Blood Cell Count 4.47 X10^6/uL (4.5-5.9); Red Cell Distribution Width 20.9 % (11.6-14.8); White Blood Cell Count 17.6 X10^3/uL (4.5-11.0)
[2019-05-31 15:58] LABS: Lactate (Lactic Acid) 2.6 mmol/L (0.7-2.1)
[2019-05-31 16:01] LABS: Alanine Aminotransferase 123 IU/L (21-72); Albumin 3.4 g/dL (3.5-5.0); Albumin Globulin Ratio 0.9 (1.0-2.8); Alkaline Phosphatase 269 U/L (38-126); Aspartate Aminotransferase 115 IU/L (17-59); BUN Creatinine Ratio 14.4 (6-22); Bilirubin Total 0.8 mg/dL (0.2-1.3); Blood Urea Nitrogen 23 mg/dL (9-20); Calcium 9.1 mg/dL (8.4-10.2); Carbon Dioxide 25 mmol/L (22-32); Chloride 104 mmol/L (98-107); Creatine Kinase 163 U/L (55-170); Estimated Glomerular Filt Rate 41.8 mL/min (>60); Globulin 3.7 g/dL (1.7-4.1); Glucose 200 mg/dL (80-110); HEMOLYSIS < 15 (0-50); Lipase 288 U/L (23-300); Potassium 3.4 mmol/L (3.4-5.1); Sodium 141 mmol/L (137-145); Total Protein 7.1 g/dL (6.3-8.2)
[2019-05-31 16:02] VITALS: BP 187/97; PULSE 107; RESP 21; O2SAT 96
[2019-05-31 16:05] LABS: Amorphous Sediment Urine 1+; Culture Indicated Urine Cult Not Indicated; Granular Casts Urine 0-1/LPF; Hyaline Casts Urine 1-5/LPF; Mucus Urine 1+ (Negative); RBC Urine 0-1/HPF (0-5/HPF); Squamous Epithelial Cell Urine 0-1 /HPF (0-5/HPF); WBC Urine 1-5/HPF (0-5/HPF)
[2019-05-31 16:06] LABS: Anisocytosis 2+; Hypochromasia 1+; Poikilocytosis 1+
[2019-05-31 16:07] LABS: Microcytosis 1+
[2019-05-31] MEDS: PIPERACILLIN-TAZO 3.375 GM/50 ML FROZ.PIGGY IV (16:10)
[2019-05-31 16:13] LABS: Troponin I 0.016 ng/mL (0.01-0.034)
[2019-05-31 16:17] LABS: CKMB % Relative Index 0.6 % (1.5-5.0); Creatine Kinase MB 1.02 ng/mL (<2.37)
[2019-05-31 16:26] LABS: Procalcitonin 37.46 ng/mL (<0.5)
[2019-05-31 16:43] VITALS: BP 158/87; PULSE 101; RESP 20; TEMP 37.8; O2SAT 95
--- NOTE | 2019-05-31 16:45 | DI.US.S_ITS ---
PROCEDURE: US ABDOMEN LIMITED INDICATIONS: RUQ PAIN TECHNIQUE: Real-time scanning was performed of the abdominal and retroperitoneal organs, with image documentation. COMPARISON: [facility], CT, CT ABDOMEN PELVIS W CON, 05/31/2019, 15:26. FINDINGS: There are incidentally noted bilateral pleural effusions. Liver: The liver measures 16.5 cm in length and demonstrates normal echotexture. There is a questionable complex fluid collection along the inferior margin of the liver with internal echogenic septations. This measures approximately 8 cm in diameter. Gallbladder: The lateral wall measures up to 8.6 mm in diameter. Sludge is present within the gallbladder fundus. No sonographic Don's sign. Biliary ducts: Intrahepatic bile ducts are non-dilated. Extrahepatic bile duct caliber measures 8.1 mm. Normal is 6-7 mm or less in diameter, or 10 mm or less post-cholecystectomy. IMPRESSION: 1. Marked gallbladder wall thickening suspicious for acute cholecystitis. 2. Complex fluid collection at the inferior left hepatic margin. This finding is suspicious for a loculated biloma or abscess. These findings were discussed with Dr. Freedman at 4:47 PM on 05/31/19. 3. Bilateral pleural effusions. Dictated by: Nazia Shaffer M.D. on 05/31/2019 at 16:43 Approved by: Nazia Shaffer M.D. on 05/31/2019 at 16:48
[2019-05-31 17:29] LABS: Reflexed Lactate in 2 Hours Y
[2019-05-31 17:54] LABS: Lactate 2HR (Lactic Acid Rflx) 1.3 mmol/L (0.7-2.1)
[2019-05-31 19:41] VITALS: BP 133/77; PULSE 96; RESP 18; O2SAT 96
== END 2019-05-31 19:41 | disposition short-term general hospital (02) ==
PROVIDERS: Emergency Provider Emergency Medicine; PCP Internal Medicine
DX: K81.0 Acute cholecystitis (principal); I50.9 Heart failure, unspecified; R00.0 Tachycardia, unspecified; Z79.01 Long term (current) use of anticoagulants
CPT/HCPCS: 36415; 36591; 71045; 74177; 76705; 80053; 81003; 81015; 82550; 82553; 83605; 83690; 84145; 84484; 85025; 87040; 93005; 96361; 96365; 96375; 99283; 99285; J2405; J2543

== ENCOUNTER 2019-06-09 07:56 | Emergency (ER) | payer MEDICARE, OTHER, SELFPAY ==
[2018-05-06 21:50] VITALS: BMI 29.1
[2019-06-09] VITALS (8 sets, daily range): BP systolic 105–165; BP diastolic 65–97; PULSE 66–96; RESP 12–18; TEMP 36.5; O2SAT 92–100; BMI 27.0
--- NOTE | 2019-06-09 08:04 | DI.CT.S_ITS ---
PROCEDURE: CT ABDOMEN PELVIS W CON INDICATIONS: ruq pain, drain recently placed, TECHNIQUE: After the administration of intravenous contrast, 5 mm thick sections acquired from the diaphragm to the symphysis. 5 mm coronal and sagittal reformats were acquired. For radiation dose reduction, the following was used: automated exposure control, adjustment of mA and/or kV according to patient size. COMPARISON: [facility], CT, KIDNEY/ URETER/BLADDER, 03/05/2017, 17:35. [facility], CT, CT ABDOMEN PELVIS W CON, 05/31/2019, 15:26. FINDINGS: Image quality: Excellent. ABDOMEN: Lung bases: Small bilateral pleural effusions are seen. The previously described right lower lobe nodule is not within the [id number] of this study. There is a moderate retrocardiac hernia seen. The heart size is within normal limits. There is a prosthetic mitral valve seen. Sternotomy wires are seen. Solid organs: Liver is normal in size and enhancement. Fluid is seen adjacent to the liver, with a fluid collection seen along the anterior left liver. Gallbladder demonstrates a cholecystostomy tube. The gallbladder itself is relatively decompressed. Gallstones are seen within the gallbladder. There is moderate pericholecystic fluid. Biliary system is non dilated. Pancreas enhances normally. Spleen is normal in size and enhancement. Incidental note is made of an accessory spleen along the hilum of the primary spleen. There is a left lateral adrenal nodule seen that measures 11 mm. No right adrenal nodules. The left kidney is highly atrophic. Arterial calcifications can be seen of the right kidney. The right kidney demonstrates normal size. No hydronephrosis is seen. Peritoneum and bowel: Bowel loops demonstrate normal wall thickness and caliber. No free fluid or air. Nodes and vessels: No retroperitoneal or mesenteric adenopathy by size criteria. Aorta and inferior vena cava are normal in size. Atherosclerotic calcification is noted. Miscellaneous: No ventral hernias. PELVIS: Genitourinary: Bladder wall thickness is normal. The prostate gland is prominent, measuring 5.8 cm transversely. Miscellaneous: No inguinal hernias or adenopathy. 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 Bones: No suspicious bony lesions. No vertebral body compression fractures. There is focal L4-L5 degenerative change. Milder degenerative changes are seen elsewhere. IMPRESSION: A cholecystostomy tube is seen, with relative decompression of the gallbladder. Gallstones are seen and pericholecystic fluid can be seen. Fluid is seen adjacent to the liver, with a fluid collection seen along the anterior left liver. This is most likely related to a subcapsular biloma. Small bilateral pleural effusions are seen, as before. Incidental note is made of: Moderate retrocardiac hernia Prosthetic mitral valve Sternotomy wires Atrophic left kidney 11 mm left adrenal nodule Right hip abductor lipoma Dictated by: Viet Garcia M.D. on 06/09/2019 at 8:51 Approved by: Viet Garcia M.D. on 06/09/2019 at 8:58
--- NOTE | 2019-06-09 08:04 | DI.RAD.S_ITS ---
PROCEDURE: XR CHEST 1V INDICATIONS: chest pain TECHNIQUE: One view of the chest was acquired. COMPARISON: , CR, XR CHEST 2V, 04/06/2018, 14:36. , CR, XR CHEST 1V, 05/06/2018, 18:01. , CR, XR CHEST 1V, 05/31/2019, 15:24. FINDINGS: Surgical changes and devices: Post CABG changes are seen. An cardiac valve prosthesis can be seen. Lungs and pleura: Low lung volumes are noted. This causes a crowded appearance to the lung markings and limits evaluation. Interstitial prominence is seen. No large pneumothorax or large pleural effusions are seen. Mediastinum: The cardiac contours are within normal limits. The aorta demonstrates calcification and tortuosity. Bones and chest wall: Age-appropriate bony degenerative changes are seen. The left clavicle is high riding and the distal end is truncated, as before. No suspicious bony lesions. Overlying soft tissues appear unremarkable. IMPRESSION: Interstitial prominence is seen throughout. The interstitial prominence is nonspecific, yet may be related to pulmonary edema. Postoperative and degenerative changes are seen. Truncated distal left clavicle, which is high riding. Dictated by: Viet Garcia M.D. on 06/09/2019 at 7:55 Approved by: Viet Garcia M.D. on 06/09/2019 at 7:56
--- NOTE | 2019-06-09 08:15 | ED.ABDPAIN ---
HPI - Abdominal Pain General Chief Complaint: Abdominal Pain Stated Complaint: Abdominal Pain Time Seen by Provider: 06/09/19 08:02 Source: patient, EMS and old records reviewed History of Present Illness HPI narrative: Patient is an 78-year-old male presenting with abdominal pain. He was seen evaluated here last week transferred up to [facility] with Sepsis and acute cholecystitis, a drain was placed, however no cholecystectomy. He is on Eliquis for cardiovascular disease. He is currently having right upper quad pain, which radiates to his right shoulder. He apparently took multiple doses of Tylenol and aspirin last night to help with his pain. He has not had fever no nausea vomiting. He is not sure when his last bowel movement was. He was discharged 06/05/2019 he was placed on antibiotics at discharge-Augmentin which he is to take for 14 days total. Related Data Home Medications Medication Instructions Recorded Confirmed aspirin 81 mg PO DAILY #0 05/25/05/31/19 amlodipine 10 mg PO DAILY 04/06/18 05/31/19 apixaban 2.5 mg PO BID 04/06/18 05/31/19 atorvastatin 40 mg PO DAILY 04/06/18 05/31/19 donepezil 5 mg PO BEDTIME 04/06/18 05/06/18 fluticasone furoate 1 spray INTRANASAL PRN PRN 04/06/18 05/31/19 metoprolol succinate 50 mg PO DAILY 04/06/18 05/06/18 terazosin 20 mg PO BEDTIME 04/06/18 05/31/19 metoprolol succinate [Toprol XL] 100 mg PO DAILY 05/31/19 05/31/19 Previous Rx's Medication Instructions Recorded furosemide 40 mg PO DAILY #30 tab 05/09/18 hydrocodone-acetaminophen [Twining] 1 tab PO Q4-6H PRN #10 tab 06/09/19 Allergies Allergy/AdvReac Type Severity Reaction Status Date / Time No Known Drug Allergies Allergy Verified 05/31/19 15:21 Review of Systems Review of Systems GENERAL: Denies chills, fatigue, malaise, fever, sweats, travel HEENT: Denies sinus pain, ear pain, sore throat, difficulty swallowing, neck pain RESPIRATORY: Denies dyspnea, cough, wheezing, hemoptysis, sputum. CARDIOVASCULAR: Denies chest pain, palpitations, orthopnea, edema GASTROINTESTINAL: See HPI : Denies dysuria, frequency, incontinence, hematuria, urinary retention, flank pain. MUSCULOSKELETAL: Denies weakness, joint pain, or bony pain SKIN: No rash, no erythema, no pruritus NEUROLOGIC: Denies weakness, dizziness, headache, numbness, change in speech, confusion PSYCHIATRIC: No concerning psychosocial issues. 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 RESPIRATORY: Breath sounds equal bilaterally, no wheezes rales or rhonchi. ABDOMEN: Soft, tender right upper quadrant drain placed bilious fluid from it no erythema or drainage at the site EXTREMITIES: Normal range of motion, no clubbing or edema. Neurovascularly intact NEUROLOGICAL: Alert and oriented x4.Normal gait and speech. Cranial nerves II through XII grossly intact. SKIN: Warm, dry, no laceration, no petechiae, no rashes or lesions. Course Orders Ordered: ED Orders 06/09/19 08:04 CT abdomen pelvis w con Stat XR chest 1V Stat 06/09/19 08:15 EKG-12 Lead Stat 06/09/19 08:45 Acetaminophen Stat Complete Blood Count AUTO DIFF Stat Comprehensive Metabolic Panel Stat Lipase Stat Partial Thromboplastin Time Stat Prothrombin Time INR Stat Salicylate Stat Troponin & CK Cardiac Panel Stat 06/09/19 11:15 Urine Microscopic Stat 06/09/19 12:50 Acetaminophen Stat Salicylate Stat Discontinued Medications Hydromorphone HCl (Dilaudid) 0.5 mg IV NOW ONE Stop: 06/09/19 08:58 Last Admin: 06/09/19 09:04 Dose: 0.5 mg Hydromorphone HCl (Dilaudid) 1 mg IV NOW ONE Stop: 06/09/19 11:01 Last Admin: 06/09/19 11:18 Dose: 1 mg Sodium Chloride (Normal Saline 0.9%) 1,000 mls @ 150 mls/hr IV CONT LAURENCE Last Infusion: 06/09/19 15:00 Dose: 0 mls/hr Admin: 06/09/19 08:50 Dose: 150 mls/hr Ondansetron HCl (Zofran) 4 mg IV NOW ONE Stop: 06/09/19 08:58 Last Admin: 06/09/19 09:03 Dose: 4 mg Consultations Consultation #1: Initially spoke with the tox off surgery PA at [facility]. Images have been sent. Spoke with Dr. Duy Cook general surgeon at [facility]. Unable to review images. However at this time no need for transfer. Recommend pain control at home continue antibiotics he wants to see patient in the clinic next week recommend family call on Tuesday for appointment. Time: 11:33 Vital Signs - 8 hr 06/09/19 10:27 06/09/19 11:28 06/09/19 12:30 Pulse Rate 68 70 80 Respiratory Rate 15 12 14 Blood Pressure [Left Arm] 163/70 H 160/73 H 156/72 H Pulse Oximetry 94 94 100 06/09/19 13:30 06/09/19 14:30 06/09/19 15:40 Pulse Rate 87 88 Respiratory Rate 16 16 Blood Pressure [Left Arm] 154/77 H 105/65 165/97 H Pulse Oximetry 98 98 06/09/19 15:57 Pulse Rate 96 H Respiratory Rate Blood Pressure [Left Arm] Pulse Oximetry 92 MDM - Abdominal Pain Lab Data Attestation: I reviewed the patient's lab results. Result diagrams: 06/09/19 08:45 06/09/19 08:45 Lab Results 06/09/19 06/09/19 06/09/19 Range/Units 08:45 08:45 08:45 WBC 11.6 H (4.5-11.0) X10^3/uL RBC 4.31 L (4.5-5.9) X10^6/uL Hgb 10.6 L (13.5-17.5) g/dL Hct 33.1 L (41-53) % MCV 76.8 L (80-100) fL MCH 24.6 L (26-34) PG MCHC 32.0 (30-36) % RDW 20.4 H (11.6-14.8) % Plt Count 258 (150-400) X10^3/uL Neut % (Auto) 81.8 H (50-75) % Lymph % (Auto) 10.6 L (25-40) % [place] % (Auto) 5.3 (3-14) % Eos % (Auto) 1.6 L (2-4) % Baso % (Auto) 0.7 (0-2) % Neut # (Auto) 9500 H (8915-9361) /uL Lymph # (Auto) 1200 (2406-7548) /uL [place] # (Auto) 600 (0-900) /uL Eos # (Auto) 200 (0-450) /uL Baso # (Auto) 100 (0-100) /uL RBC Morphology See below Anisocytosis 1+ H PT 15.6 H (10.1-12.7) SECONDS INR 1.3 (0.9-1.3) APTT 37 H D (26.4-36.2) SECONDS Sodium 140 (137-145) mmol/L Potassium 3.4 (3.4-5.1) mmol/L Chloride 104 (98-107) mmol/L Carbon Dioxide 26 (22-32) mmol/L BUN 19 (9-20) mg/dL Creatinine 1.80 H (0.66-1.25) mg/dL Estimated GFR 36.5 L (>60) mL/min BUN/Creatinine Ratio 10.6 (6-22) Glucose 122 H (80-110) mg/dL Calcium 8.8 (8.4-10.2) mg/dL Total Bilirubin 0.4 (0.2-1.3) mg/dL AST 61 H (17-59) IU/L ALT 147 H (21-72) IU/L Alkaline Phosphatase 159 H (38-126) U/L Total Creatine Kinase 34 L (55-170) U/L CK-MB (CK-2) TNP CK-MB (CK-2) Rel Index TNP Troponin I < 0.012 (0.01-0.034) ng/mL Total Protein 7.1 (6.3-8.2) g/dL Albumin 3.4 L (3.5-5.0) g/dL Globulin 3.7 (1.7-4.1) g/dL Albumin/Globulin Ratio 0.9 L (1.0-2.8) Lipase 277 (23-300) U/L Urine RBC (0-5/HPF) Urine WBC (0-5/HPF) Ur Squamous Epith Cells (0-5/HPF) Urine Bacteria (None) Ur Culture Indicated? Salicylates (<20) mg/dL Acetaminophen (10-30) ug/mL 06/09/19 06/09/19 06/09/19 Range/Units 08:45 11:15 12:50 WBC (4.5-11.0) X10^3/uL RBC (4.5-5.9) X10^6/uL Hgb (13.5-17.5) g/dL Hct (41-53) % MCV (80-100) fL MCH (26-34) PG MCHC (30-36) % RDW (11.6-14.8) % Plt Count (150-400) X10^3/uL Neut % (Auto) (50-75) % Lymph % (Auto) (25-40) % [place] % (Auto) (3-14) % Eos % (Auto) (2-4) % Baso % (Auto) (0-2) % Neut # (Auto) (4759-0602) /uL Lymph # (Auto) (5512-0461) /uL [place] # (Auto) (0-900) /uL Eos # (Auto) (0-450) /uL Baso # (Auto) (0-100) /uL RBC Morphology Anisocytosis PT (10.1-12.7) SECONDS INR (0.9-1.3) APTT (26.4-36.2) SECONDS Sodium (137-145) mmol/L Potassium (3.4-5.1) mmol/L Chloride (98-107) mmol/L Carbon Dioxide (22-32) mmol/L BUN (9-20) mg/dL Creatinine (0.66-1.25) mg/dL Estimated GFR (>60) mL/min BUN/Creatinine Ratio (6-22) Glucose (80-110) mg/dL Calcium (8.4-10.2) mg/dL Total Bilirubin (0.2-1.3) mg/dL AST (17-59) IU/L ALT (21-72) IU/L Alkaline Phosphatase (38-126) U/L Total Creatine Kinase (55-170) U/L CK-MB (CK-2) CK-MB (CK-2) Rel Index Troponin I (0.01-0.034) ng/mL Total Protein (6.3-8.2) g/dL Albumin (3.5-5.0) g/dL Globulin (1.7-4.1) g/dL Albumin/Globulin Ratio (1.0-2.8) Lipase (23-300) U/L Urine RBC 5-10/hpf H (0-5/HPF) Urine WBC None seen (0-5/HPF) Ur Squamous Epith Cells 0-1 /hpf (0-5/HPF) Urine Bacteria None seen (None) Ur Culture Indicated? Cult not indicated Salicylates 4.4 (<20) mg/dL Acetaminophen 15 < 10 L (10-30) ug/mL 06/09/19 Range/Units 12:50 WBC (4.5-11.0) X10^3/uL RBC (4.5-5.9) X10^6/uL Hgb (13.5-17.5) g/dL Hct (41-53) % MCV (80-100) fL MCH (26-34) PG MCHC (30-36) % RDW (11.6-14.8) % Plt Count (150-400) X10^3/uL Neut % (Auto) (50-75) % Lymph % (Auto) (25-40) % [place] % (Auto) (3-14) % Eos % (Auto) (2-4) % Baso % (Auto) (0-2) % Neut # (Auto) (8369-0067) /uL Lymph # (Auto) (1405-0366) /uL [place] # (Auto) (0-900) /uL Eos # (Auto) (0-450) /uL Baso # (Auto) (0-100) /uL RBC Morphology Anisocytosis PT (10.1-12.7) SECONDS INR (0.9-1.3) APTT (26.4-36.2) SECONDS Sodium (137-145) mmol/L Potassium (3.4-5.1) mmol/L Chloride (98-107) mmol/L Carbon Dioxide (22-32) mmol/L BUN (9-20) mg/dL Creatinine (0.66-1.25) mg/dL Estimated GFR (>60) mL/min BUN/Creatinine Ratio (6-22) Glucose (80-110) mg/dL Calcium (8.4-10.2) mg/dL Total Bilirubin (0.2-1.3) mg/dL AST (17-59) IU/L ALT (21-72) IU/L Alkaline Phosphatase (38-126) U/L Total Creatine Kinase (55-170) U/L CK-MB (CK-2) CK-MB (CK-2) Rel Index Troponin I (0.01-0.034) ng/mL Total Protein (6.3-8.2) g/dL Albumin (3.5-5.0) g/dL Globulin (1.7-4.1) g/dL Albumin/Globulin Ratio (1.0-2.8) Lipase (23-300) U/L Urine RBC (0-5/HPF) Urine WBC (0-5/HPF) Ur Squamous Epith Cells (0-5/HPF) Urine Bacteria (None) Ur Culture Indicated? Salicylates 6.5 (<20) mg/dL Acetaminophen (10-30) ug/mL Point of care testing: Point of Care Testing Glucose POC 145 Urine Dip Bedside Urine Glucose Negative Bedside Urine Bilirubin - Negative Bedside Urine Ketone - Negative Urine Specific [place] 1.010 Bedside Urine Occult Blood ++ Bedside Urine pH 5.5 Bedside Urine Protein + 30 Bedside Urine Urobilinogen - Negative Bedside Urine Nitrite - Negative Bedside Urine Leukocytes - Negative Esterase Imaging Data Chest x-ray: Radiologist's impression: PROCEDURE: XR CHEST 1V INDICATIONS: chest pain TECHNIQUE: One view of the chest was acquired. COMPARISON: [facility], CR, XR CHEST 2V, 04/06/2018, 14:36. [facility], CR, XR CHEST 1V, 05/06/2018, 18:01. [facility], CR, XR CHEST 1V, 05/31/2019, 15:24. FINDINGS: Surgical changes and devices: Post CABG changes are seen. An cardiac valve prosthesis can be seen. Lungs and pleura: Low lung volumes are noted. This causes a crowded appearance to the lung markings and limits evaluation. Interstitial prominence is seen. No large pneumothorax or large pleural effusions are seen. Mediastinum: The cardiac contours are within normal limits. The aorta demonstrates calcification and tortuosity. Bones and chest wall: Age-appropriate bony degenerative changes are seen. The left clavicle is high riding and the distal end is truncated, as before. No suspicious bony lesions. Overlying soft tissues appear unremarkable. IMPRESSION: Interstitial prominence is seen throughout. The interstitial prominence is nonspecific, yet may be related to pulmonary edema. Postoperative and degenerative changes are seen. Truncated distal left clavicle, which is high riding. Dictated by: Viet Garcia M.D. on 06/09/2019 at 7:55 CT scan - abdomen: Radiologist's impression: PROCEDURE: CT ABDOMEN PELVIS W CON INDICATIONS: ruq pain, drain recently placed, TECHNIQUE: After the administration of intravenous contrast, 5 mm thick sections acquired from the diaphragm to the symphysis. 5 mm coronal and sagittal reformats were acquired. For radiation dose reduction, the following was used: automated exposure control, adjustment of mA and/or kV according to patient size. COMPARISON: [facility], CT, KIDNEY/ URETER/BLADDER, 03/05/2017, 17:35. [facility], CT, CT ABDOMEN PELVIS W CON, 05/31/2019, 15:26. FINDINGS: Image quality: Excellent. ABDOMEN: Lung bases: Small bilateral pleural effusions are seen. The previously described right lower lobe nodule is not within the [id number] of this study. There is a moderate retrocardiac hernia seen. The heart size is within normal limits. There is a prosthetic mitral valve seen. Sternotomy wires are seen. Solid organs: Liver is normal in size and enhancement. Fluid is seen adjacent to the liver, with a fluid collection seen along the anterior left liver. Gallbladder demonstrates a cholecystostomy tube. The gallbladder itself is relatively decompressed. Gallstones are seen within the gallbladder. There is moderate pericholecystic fluid. Biliary system is non dilated. Pancreas enhances normally. Spleen is normal in size and enhancement. Incidental note is made of an accessory spleen along the hilum of the primary spleen. There is a left lateral adrenal nodule seen that measures 11 mm. No right adrenal nodules. The left kidney is highly atrophic. Arterial calcifications can be seen of the right kidney. The right kidney demonstrates normal size. No hydronephrosis is seen. Peritoneum and bowel: Bowel loops demonstrate normal wall thickness and caliber. No free fluid or air. Nodes and vessels: No retroperitoneal or mesenteric adenopathy by size criteria. Aorta and inferior vena cava are normal in size. Atherosclerotic calcification is noted. Miscellaneous: No ventral hernias. PELVIS: Genitourinary: Bladder wall thickness is normal. The prostate gland is prominent, measuring 5.8 cm transversely. Miscellaneous: No inguinal hernias or adenopathy. 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 Bones: No suspicious bony lesions. No vertebral body compression fractures. There is focal L4-L5 degenerative change. Milder degenerative changes are seen elsewhere. IMPRESSION: A cholecystostomy tube is seen, with relative decompression of the gallbladder. Gallstones are seen and pericholecystic fluid can be seen. Fluid is seen adjacent to the liver, with a fluid collection seen along the anterior left liver. This is most likely related to a subcapsular biloma. Small bilateral pleural effusions are seen, as before. Incidental note is made of: Moderate retrocardiac hernia Prosthetic mitral valve Sternotomy wires Atrophic left kidney 11 mm left adrenal nodule Right hip abductor lipoma Dictated by: Viet Garcia M.D. on 06/09/2019 at 8:51 Approved by: Viet Garcia M.D. on 06/09/2019 at 8:58 ECG Data Attestation: I personally reviewed and interpreted this ECG as follows: Prior ECG tracings: available for review Interpretation: Sinus rhythm rate 61 with Q-waves noted in septal leads similar to previous EKG no ST elevations or T-wave inversions. MDM Narrative Medical decision making narrative: Patient's repeat Tylenol and salicylate levels are within normal limits. No need for any antidote. His pain is better with Dilaudid. I have spoken with surgery at [facility] at this time no need for transfer blood work overall appears similar or reassuring. Pain in right shoulder which seems to be what he complains about most is likely from the cholecystostomy tube. I have called and spoken to daughter a few times on the phone and explained things to her. I have also explained I will be starting pain medication, such as Twining for him to take at home and that he should not be taking any extra Tylenol or salicylates. She understands this she has removed them from his room. Discharge Plan Departure Patient Disposition: Home Clinical Impression: Cholecystitis Discharge Date/Time: 06/09/19 16:37 Interventions: ED Discharge Assessment Last Done: 06/09/19 16:37 Instructions: DI for Cholecystectomy Activity Restrictions/Additional Instructions: *You have been diagnosed with cholecystitis *What to do: At this time pain management. I spoke with Dr. Cook at [facility] in [place]. He would like to see you in the clinic next week on Tuesday or Tuesday please call the office on Tuesday to schedule an appointment. *Continue to take medications as directed Twining 1 tablet every 4 hours or 2 tablets every 6 hours *Follow up with your primary care provider in 2-3 days *Return to ER if you should have fever persistent vomiting increasing pain or any new, worsening or concerning symptoms CONTROLLED SUBSTANCE DISCHARGE (Narcotoic/benzodiazepine/Flexeril/Phenergan) 1. You have been prescribed narcotic medications, it does have acetaminophen/Tylenol/paracetamol in it so do not take extra Tylenol or Tylenol containing products 2. Please understand that we cannot provide further refills of narcotics, benzodiazepines or controlled substances through the ED and her pain management will need to be through your provider. 3. While on these medications you cannot drive or operate heavy machinery. 4. You cannot sign legal documents or perform any duties such as this. 5. As long as you're taking opiate pain medications he should also be taking a stool softener such as Colace, Dulcolax, MiraLAX or prune juice, to help avoid constipation. Prescriptions: New hydrocodone-acetaminophen [Twining] 5-325 mg tablet 1 tab PO Q4-6H PRN (Reason: pain) Qty: 10 RF: 0 No Action aspirin 81 mg Tablet,Delayed Release (Dr/Ec) 81 mg PO DAILY Qty: 0 RF: 0 furosemide 40 mg tablet 40 mg PO DAILY Qty: 30 RF: 0 atorvastatin 40 mg tablet 40 mg PO DAILY RF: 0 donepezil 5 mg tablet 5 mg PO BEDTIME RF: 0 amlodipine 10 mg tablet 10 mg PO DAILY RF: 0 apixaban 2.5 mg tablet 2.5 mg PO BID RF: 0 metoprolol succinate 50 mg Tablet Extended Release 24 Hr 50 mg PO DAILY RF: 0 terazosin 10 mg capsule 20 mg PO BEDTIME RF: 0 fluticasone furoate 27.5 mcg/actuation [place],Suspension 1 spray Intranasal PRN PRN (Reason: Congestion) RF: 0 metoprolol succinate [Toprol XL] 100 mg tablet extended release 24 hr 100 mg PO DAILY RF: 0 Referrals: Nora Pinon MD [Primary Care Provider] -
--- NOTE | 2019-06-09 08:18 | ED_ITS ---
HPI - Abdominal Pain General Chief Complaint: Abdominal Pain Stated Complaint: Abdominal Pain Time Seen by Provider: 06/09/19 08:02 Source: patient, EMS and old records reviewed History of Present Illness HPI narrative: Patient is an 78-year-old male presenting with abdominal pain. He was seen evaluated here last week transferred up to [facility] with Sepsis and acute cholecystitis, a drain was placed, however no cholecystectomy. He is on Eliquis for cardiovascular disease. He is currently having right upper quad pain, which radiates to his right shoulder. He apparently took multiple doses of Tylenol and aspirin last night to help with his pain. He has not had fever no nausea vomiting. He is not sure when his last bowel movement was. He was discharged 06/05/2019 he was placed on antibiotics at discharge-Augmentin which he is to take for 14 days total. Related Data Home Medications Medication Instructions Recorded Confirmed aspirin 81 mg PO DAILY #0 05/25/05/31/19 amlodipine 10 mg PO DAILY 04/06/18 05/31/19 apixaban 2.5 mg PO BID 04/06/18 05/31/19 atorvastatin 40 mg PO DAILY 04/06/18 05/31/19 donepezil 5 mg PO BEDTIME 04/06/18 05/06/18 fluticasone furoate 1 spray INTRANASAL PRN PRN 04/06/18 05/31/19 metoprolol succinate 50 mg PO DAILY 04/06/18 05/06/18 terazosin 20 mg PO BEDTIME 04/06/18 05/31/19 metoprolol succinate [Toprol XL] 100 mg PO DAILY 05/31/19 05/31/19 Previous Rx's Medication Instructions Recorded furosemide 40 mg PO DAILY #30 tab 05/09/18 hydrocodone-acetaminophen [Vesuvius] 1 tab PO Q4-6H PRN #10 tab 06/09/19 Allergies Allergy/AdvReac Type Severity Reaction Status Date / Time No Known Drug Allergies Allergy Verified 05/31/19 15:21 Review of Systems Review of Systems GENERAL: Denies chills, fatigue, malaise, fever, sweats, travel HEENT: Denies sinus pain, ear pain, sore throat, difficulty swallowing, neck pain RESPIRATORY: Denies dyspnea, cough, wheezing, hemoptysis, sputum. CARDIOVASCULAR: Denies chest pain, palpitations, orthopnea, edema GASTROINTESTINAL: See HPI : Denies dysuria, frequency, incontinence, hematuria, urinary retention, flank pain. MUSCULOSKELETAL: Denies weakness, joint pain, or bony pain SKIN: No rash, no erythema, no pruritus NEUROLOGIC: Denies weakness, dizziness, headache, numbness, change in speech, confusion PSYCHIATRIC: No concerning psychosocial issues. 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 RESPIRATORY: Breath sounds equal bilaterally, no wheezes rales or rhonchi. ABDOMEN: Soft, tender right upper quadrant drain placed bilious fluid from it no erythema or drainage at the site EXTREMITIES: Normal range of motion, no clubbing or edema. Neurovascularly intact NEUROLOGICAL: Alert and oriented x4.Normal gait and speech. Cranial nerves II through XII grossly intact. SKIN: Warm, dry, no laceration, no petechiae, no rashes or lesions. Course Orders Ordered: ED Orders 06/09/19 08:04 CT abdomen pelvis w con Stat XR chest 1V Stat 06/09/19 08:15 EKG-12 Lead Stat 06/09/19 08:45 Acetaminophen Stat Complete Blood Count AUTO DIFF Stat Comprehensive Metabolic Panel Stat Lipase Stat Partial Thromboplastin Time Stat Prothrombin Time INR Stat Salicylate Stat Troponin & CK Cardiac Panel Stat 06/09/19 11:15 Urine Microscopic Stat 06/09/19 12:50 Acetaminophen Stat Salicylate Stat Discontinued Medications Hydromorphone HCl (Dilaudid) 0.5 mg IV NOW ONE Stop: 06/09/19 08:58 Last Admin: 06/09/19 09:04 Dose: 0.5 mg Hydromorphone HCl (Dilaudid) 1 mg IV NOW ONE Stop: 06/09/19 11:01 Last Admin: 06/09/19 11:18 Dose: 1 mg Sodium Chloride (Normal Saline 0.9%) 1,000 mls @ 150 mls/hr IV CONT LAURENCE Last Infusion: 06/09/19 15:00 Dose: 0 mls/hr Admin: 06/09/19 08:50 Dose: 150 mls/hr Ondansetron HCl (Zofran) 4 mg IV NOW ONE Stop: 06/09/19 08:58 Last Admin: 06/09/19 09:03 Dose: 4 mg Consultations Consultation #1: Initially spoke with the tox off surgery PA at [facility]. Images have been sent. Spoke with Dr. Duy Cook general surgeon at [facility]. Unable to review images. However at this time no need for transfer. Recommend pain control at home continue antibiotics he wants to see patient in the clinic next week recommend family call on Tuesday for appointment. Time: 11:33 Vital Signs - 8 hr 06/09/19 10:27 06/09/19 11:28 06/09/19 12:30 Pulse Rate 68 70 80 Respiratory Rate 15 12 14 Blood Pressure [Left Arm] 163/70 H 160/73 H 156/72 H Pulse Oximetry 94 94 100 06/09/19 13:30 06/09/19 14:30 06/09/19 15:40 Pulse Rate 87 88 Respiratory Rate 16 16 Blood Pressure [Left Arm] 154/77 H 105/65 165/97 H Pulse Oximetry 98 98 06/09/19 15:57 Pulse Rate 96 H Respiratory Rate Blood Pressure [Left Arm] Pulse Oximetry 92 MDM - Abdominal Pain Lab Data Attestation: I reviewed the patient's lab results. Result diagrams: 06/09/19 08:45 06/09/19 08:45 Lab Results 06/09/19 06/09/19 06/09/19 Range/Units 08:45 08:45 08:45 WBC 11.6 H (4.5-11.0) X10^3/uL RBC 4.31 L (4.5-5.9) X10^6/uL Hgb 10.6 L (13.5-17.5) g/dL Hct 33.1 L (41-53) % MCV 76.8 L (80-100) fL MCH 24.6 L (26-34) PG MCHC 32.0 (30-36) % RDW 20.4 H (11.6-14.8) % Plt Count 258 (150-400) X10^3/uL Neut % (Auto) 81.8 H (50-75) % Lymph % (Auto) 10.6 L (25-40) % Woodruff % (Auto) 5.3 (3-14) % Eos % (Auto) 1.6 L (2-4) % Baso % (Auto) 0.7 (0-2) % Neut # (Auto) 9500 H (3942-1589) /uL Lymph # (Auto) 1200 (5617-1625) /uL Woodruff # (Auto) 600 (0-900) /uL Eos # (Auto) 200 (0-450) /uL Baso # (Auto) 100 (0-100) /uL RBC Morphology See below Anisocytosis 1+ H PT 15.6 H (10.1-12.7) SECONDS INR 1.3 (0.9-1.3) APTT 37 H D (26.4-36.2) SECONDS Sodium 140 (137-145) mmol/L Potassium 3.4 (3.4-5.1) mmol/L Chloride 104 (98-107) mmol/L Carbon Dioxide 26 (22-32) mmol/L BUN 19 (9-20) mg/dL Creatinine 1.80 H (0.66-1.25) mg/dL Estimated GFR 36.5 L (>60) mL/min BUN/Creatinine Ratio 10.6 (6-22) Glucose 122 H (80-110) mg/dL Calcium 8.8 (8.4-10.2) mg/dL Total Bilirubin 0.4 (0.2-1.3) mg/dL AST 61 H (17-59) IU/L ALT 147 H (21-72) IU/L Alkaline Phosphatase 159 H (38-126) U/L Total Creatine Kinase 34 L (55-170) U/L CK-MB (CK-2) TNP CK-MB (CK-2) Rel Index TNP Troponin I < 0.012 (0.01-0.034) ng/mL Total Protein 7.1 (6.3-8.2) g/dL Albumin 3.4 L (3.5-5.0) g/dL Globulin 3.7 (1.7-4.1) g/dL Albumin/Globulin Ratio 0.9 L (1.0-2.8) Lipase 277 (23-300) U/L Urine RBC (0-5/HPF) Urine WBC (0-5/HPF) Ur Squamous Epith Cells (0-5/HPF) Urine Bacteria (None) Ur Culture Indicated? Salicylates (<20) mg/dL Acetaminophen (10-30) ug/mL 06/09/19 06/09/19 06/09/19 Range/Units 08:45 11:15 12:50 WBC (4.5-11.0) X10^3/uL RBC (4.5-5.9) X10^6/uL Hgb (13.5-17.5) g/dL Hct (41-53) % MCV (80-100) fL MCH (26-34) PG MCHC (30-36) % RDW (11.6-14.8) % Plt Count (150-400) X10^3/uL Neut % (Auto) (50-75) % Lymph % (Auto) (25-40) % Woodruff % (Auto) (3-14) % Eos % (Auto) (2-4) % Baso % (Auto) (0-2) % Neut # (Auto) (6285-4618) /uL Lymph # (Auto) (3050-0930) /uL Woodruff # (Auto) (0-900) /uL Eos # (Auto) (0-450) /uL Baso # (Auto) (0-100) /uL RBC Morphology Anisocytosis PT (10.1-12.7) SECONDS INR (0.9-1.3) APTT (26.4-36.2) SECONDS Sodium (137-145) mmol/L Potassium (3.4-5.1) mmol/L Chloride (98-107) mmol/L Carbon Dioxide (22-32) mmol/L BUN (9-20) mg/dL Creatinine (0.66-1.25) mg/dL Estimated GFR (>60) mL/min BUN/Creatinine Ratio (6-22) Glucose (80-110) mg/dL Calcium (8.4-10.2) mg/dL Total Bilirubin (0.2-1.3) mg/dL AST (17-59) IU/L ALT (21-72) IU/L Alkaline Phosphatase (38-126) U/L Total Creatine Kinase (55-170) U/L CK-MB (CK-2) CK-MB (CK-2) Rel Index Troponin I (0.01-0.034) ng/mL Total Protein (6.3-8.2) g/dL Albumin (3.5-5.0) g/dL Globulin (1.7-4.1) g/dL Albumin/Globulin Ratio (1.0-2.8) Lipase (23-300) U/L Urine RBC 5-10/hpf H (0-5/HPF) Urine WBC None seen (0-5/HPF) Ur Squamous Epith Cells 0-1 /hpf (0-5/HPF) Urine Bacteria None seen (None) Ur Culture Indicated? Cult not indicated Salicylates 4.4 (<20) mg/dL Acetaminophen 15 < 10 L (10-30) ug/mL 06/09/19 Range/Units 12:50 WBC (4.5-11.0) X10^3/uL RBC (4.5-5.9) X10^6/uL Hgb (13.5-17.5) g/dL Hct (41-53) % MCV (80-100) fL MCH (26-34) PG MCHC (30-36) % RDW (11.6-14.8) % Plt Count (150-400) X10^3/uL Neut % (Auto) (50-75) % Lymph % (Auto) (25-40) % Woodruff % (Auto) (3-14) % Eos % (Auto) (2-4) % Baso % (Auto) (0-2) % Neut # (Auto) (7995-0537) /uL Lymph # (Auto) (4016-5443) /uL Woodruff # (Auto) (0-900) /uL Eos # (Auto) (0-450) /uL Baso # (Auto) (0-100) /uL RBC Morphology Anisocytosis PT (10.1-12.7) SECONDS INR (0.9-1.3) APTT (26.4-36.2) SECONDS Sodium (137-145) mmol/L Potassium (3.4-5.1) mmol/L Chloride (98-107) mmol/L Carbon Dioxide (22-32) mmol/L BUN (9-20) mg/dL Creatinine (0.66-1.25) mg/dL Estimated GFR (>60) mL/min BUN/Creatinine Ratio (6-22) Glucose (80-110) mg/dL Calcium (8.4-10.2) mg/dL Total Bilirubin (0.2-1.3) mg/dL AST (17-59) IU/L ALT (21-72) IU/L Alkaline Phosphatase (38-126) U/L Total Creatine Kinase (55-170) U/L CK-MB (CK-2) CK-MB (CK-2) Rel Index Troponin I (0.01-0.034) ng/mL Total Protein (6.3-8.2) g/dL Albumin (3.5-5.0) g/dL Globulin (1.7-4.1) g/dL Albumin/Globulin Ratio (1.0-2.8) Lipase (23-300) U/L Urine RBC (0-5/HPF) Urine WBC (0-5/HPF) Ur Squamous Epith Cells (0-5/HPF) Urine Bacteria (None) Ur Culture Indicated? Salicylates 6.5 (<20) mg/dL Acetaminophen (10-30) ug/mL Point of care testing: Point of Care Testing Glucose POC 145 Urine Dip Bedside Urine Glucose Negative Bedside Urine Bilirubin - Negative Bedside Urine Ketone - Negative Urine Specific King 1.010 Bedside Urine Occult Blood ++ Bedside Urine pH 5.5 Bedside Urine Protein + 30 Bedside Urine Urobilinogen - Negative Bedside Urine Nitrite - Negative Bedside Urine Leukocytes - Negative Esterase Imaging Data Chest x-ray: Radiologist's impression: PROCEDURE: XR CHEST 1V INDICATIONS: chest pain TECHNIQUE: One view of the chest was acquired. COMPARISON: [facility], CR, XR CHEST 2V, 04/06/2018, 14:36. [facility], CR, XR CHEST 1V, 05/06/2018, 18:01. [facility], CR, XR CHEST 1V, 05/31/2019, 15:24. FINDINGS: Surgical changes and devices: Post CABG changes are seen. An cardiac valve prosthesis can be seen. Lungs and pleura: Low lung volumes are noted. This causes a crowded appearance to the lung markings and limits evaluation. Interstitial prominence is seen. No large pneumothorax or large pleural effusions are seen. Mediastinum: The cardiac contours are within normal limits. The aorta demonstrates calcification and tortuosity. Bones and chest wall: Age-appropriate bony degenerative changes are seen. The left clavicle is high riding and the distal end is truncated, as before. No suspicious bony lesions. Overlying soft tissues appear unremarkable. IMPRESSION: Interstitial prominence is seen throughout. The interstitial prominence is nonspecific, yet may be related to pulmonary edema. Postoperative and degenerative changes are seen. Truncated distal left clavicle, which is high riding. Dictated by: Viet Garcia M.D. on 06/09/2019 at 7:55 CT scan - abdomen: Radiologist's impression: PROCEDURE: CT ABDOMEN PELVIS W CON INDICATIONS: ruq pain, drain recently placed, TECHNIQUE: After the administration of intravenous contrast, 5 mm thick sections acquired f rom the diaphragm to the symphysis. 5 mm coronal and sagittal reformats were acquired. For radiation dose reduction, the following was used: automated exposure control, adjustment of mA and/or kV according to patient size. COMPARISON: [facility], CT, KIDNEY/ URETER/BLADDER, 03/05/2017, 17:35. [facility], CT, CT ABDOMEN PELVIS W CON, 05/31/2019, 15:26. FINDINGS: Image quality: Excellent. ABDOMEN: Lung bases: Small bilateral pleural effusions are seen. The previously described right lower lobe nodule is not within the [id number] of this study. There is a mod erate retrocardiac hernia seen. The heart size is within normal limits. There is a prosthetic mitral valve seen. Sternotomy wires are seen. Solid organs: Liver is normal in size and enhancement. Fluid is seen adjacent to the liver, with a fluid collection seen along the anterior left liver. Gallbladder demonstrates a cholecystostomy tube. The gallbladder itself is relatively decompressed. Gallstones are seen within the gallbladder. There is moderate pericholecystic fluid. Biliary system is non dilated. Pancreas enhances normally. Spleen is normal in size and enhancement. Incidental note is made of an accessory spleen along the hilum of the primary spleen. There is a left lateral adrenal nodule seen that measures 11 mm. No right adrenal nodules. The left kidney is highly atrophic. Arterial calcifications can be seen of the right kidney. The right kidney demonstrates normal size. No hydronephrosis is seen. Peritoneum and bowel: Bowel loops demonstrate normal wall thickness and caliber. No free fluid or air. Nodes and vessels: No retroperitoneal or mesenteric adenopathy by size criteria. Aorta and inferior vena cava are normal in size. Atherosclerotic calcification is noted. Miscellaneous: No ventral hernias. PELVIS: Genitourinary: Bladder wall thickness is normal. The prostate gland is prominent, measuring 5.8 cm transversely. Miscellaneous: No inguinal hernias or adenopathy. 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 Bones: No suspicious bony lesions. No vertebral body compression fractures. There is focal L4-L5 degenerative change. Milder degenerative changes are seen el sewhere. IMPRESSION: A cholecystostomy tube is seen, with relative decompression of the gallbladder. Gallstones are seen and pericholecystic fluid can be seen. Fluid is seen adjacent to the liver, with a fluid collection seen along the anterior left liver. This is most likely related to a subcapsular biloma. Small bilateral pleural effusions are seen, as before. Incidental note is made of: Moderate retrocardiac hernia Prosthetic mitral valve Sternotomy wires Atrophic left kidney 11 mm left adrenal nodule Right hip abductor lipoma Dictated by: Viet Garcia M.D. on 06/09/2019 at 8:51 Approved by: Viet Garcia M.D. on 06/09/2019 at 8:58 ECG Data Attestation: I personally reviewed and interpreted this ECG as follows: Prior ECG tracings: available for review Interpretation: Sinus rhythm rate 61 with Q-waves noted in septal leads similar to previous EKG no ST elevations or T-wave inversions. MDM Narrative Medical decision making narrative: Patient's repeat Tylenol and salicylate levels are within normal limits. No need for any antidote. His pain is better with Dilaudid. I have spoken with surgery at [facility] at this time no need for transfer blood work overall appears similar or reassuring. Pain in right shoulder which seems to be what he complains about most is likely from the cholecystostomy tube. I have called and spoken to daughter a few times on the phone and explained things to her. I have also explained I will be starting pain medication, such as Vesuvius for him to take at home and that he should not be taking any extra Tylenol or salicylates. She understands this she has removed them from his room. Discharge Plan Departure Patient Disposition: Home Clinical Impression: Cholecystitis Discharge Date/Time: 06/09/19 16:37 Interventions: ED Discharge Assessment Last Done: 06/09/19 16:37 Instructions: DI for Cholecystectomy Activity Restrictions/Additional Instructions: *You have been diagnosed with cholecystitis *What to do: At this time pain management. I spoke with Dr. Cook at [facility] in [place]. He would like to see you in the clinic next week on Tuesday or Tuesday please call the office on Tuesday to schedule an appointment. *Continue to take medications as directed Vesuvius 1 tablet every 4 hours or 2 tablets every 6 hours *Follow up with your primary care provider in 2-3 days *Return to ER if you should have fever persistent vomiting increasing pain or any new, worsening or concerning symptoms CONTROLLED SUBSTANCE DISCHARGE (Narcotoic/benzodiazepine/Flexeril/Phenergan) 1. You have been prescribed narcotic medications, it does have acetaminophen/Tylenol/paracetamol in it so do not take extra Tylenol or Tylenol containing products 2. Please understand that we cannot provide further refills of narcotics, benzodiazepines or controlled substances through the ED and her pain management will need to be through your provider. 3. While on these medications you cannot drive or operate heavy machinery. 4. You cannot sign legal documents or perform any duties such as this. 5. As long as you're taking opiate pain medications he should also be taking a stool softener such as Colace, Dulcolax, MiraLAX or prune juice, to help avoid constipation. Prescriptions: New hydrocodone-acetaminophen [Vesuvius] 5-325 mg tablet 1 tab PO Q4-6H PRN (Reason: pain) Qty: 10 RF: 0 No Action aspirin 81 mg Tablet,Delayed Release (Dr/Ec) 81 mg PO DAILY Qty: 0 RF: 0 furosemide 40 mg tablet 40 mg PO DAILY Qty: 30 RF: 0 atorvastatin 40 mg tablet 40 mg PO DAILY RF: 0 donepezil 5 mg tablet 5 mg PO BEDTIME RF: 0 amlodipine 10 mg tablet 10 mg PO DAILY RF: 0 apixaban 2.5 mg tablet 2.5 mg PO BID RF: 0 metoprolol succinate 50 mg Tablet Extended Release 24 Hr 50 mg PO DAILY RF: 0 terazosin 10 mg capsule 20 mg PO BEDTIME RF: 0 fluticasone furoate 27.5 mcg/actuation [place],Suspension 1 spray Intranasal PRN PRN (Reason: Congestion) RF: 0 metoprolol succinate [Toprol XL] 100 mg tablet extended release 24 hr 100 mg PO DAILY RF: 0 Referrals: Nora Pinon MD [Primary Care Provider] -
[2019-06-09] MEDS: SODIUM CHLORIDE 0.9% 1,000 ML 150 ML IV (08:50)
[2019-06-09 08:52] LABS: Add Manual Diff / Slide Review NO; Basophils Absolute Auto 100 /uL (0-100); Basophils Percent Auto 0.7 % (0-2); Eosinophils Absolute Auto 200 /uL (0-450); Eosinophils Percent Auto 1.6 % (2-4); Hematocrit 33.1 % (41-53); Hemoglobin 10.6 g/dL (13.5-17.5); Lymphocytes Absolute Auto 1200 /uL (1100-4500); Lymphocytes Percent Auto 10.6 % (25-40); Mean Corpuscular Hemoglobin 24.6 PG (26-34); Mean Corpuscular Volume 76.8 fL (80-100); Monocytes Absolute Auto 600 /uL (0-900); Monocytes Percent Auto 5.3 % (3-14); Neutrophils Absolute Auto 9500 /uL (1500-7000); Neutrophils Percent Auto 81.8 % (50-75); Platelet Count 258 X10^3/uL (150-400); Red Blood Cell Count 4.31 X10^6/uL (4.5-5.9); Red Cell Distribution Width 20.4 % (11.6-14.8); White Blood Cell Count 11.6 X10^3/uL (4.5-11.0)
[2019-06-09 09:01] LABS: INR 1.3 (0.9-1.3); Prothrombin Time 15.6 SECONDS (10.1-12.7)
[2019-06-09] MEDS: ONDANSETRON 4 MG/2 ML INJ IV (09:03)
[2019-06-09 09:04] LABS: PTT Partial Thromboplastin Tim 37 SECONDS (26.4-36.2)
[2019-06-09] MEDS: HYDROMORPHONE 1 MG INJ 0.5 MG IV (09:04)
[2019-06-09 09:05] LABS: Alanine Aminotransferase 147 IU/L (21-72); Albumin 3.4 g/dL (3.5-5.0); Albumin Globulin Ratio 0.9 (1.0-2.8); Alkaline Phosphatase 159 U/L (38-126); Aspartate Aminotransferase 61 IU/L (17-59); BUN Creatinine Ratio 10.6 (6-22); Bilirubin Total 0.4 mg/dL (0.2-1.3); Blood Urea Nitrogen 19 mg/dL (9-20); Calcium 8.8 mg/dL (8.4-10.2); Carbon Dioxide 26 mmol/L (22-32); Chloride 104 mmol/L (98-107); Creatine Kinase 34 U/L (55-170); Estimated Glomerular Filt Rate 36.5 mL/min (>60); Globulin 3.7 g/dL (1.7-4.1); Glucose 122 mg/dL (80-110); HEMOLYSIS < 15 (0-50); Lipase 277 U/L (23-300); Potassium 3.4 mmol/L (3.4-5.1); Sodium 140 mmol/L (137-145); Total Protein 7.1 g/dL (6.3-8.2)
[2019-06-09 09:17] LABS: Troponin I < 0.012 ng/mL (0.01-0.034)
--- NOTE | 2019-06-09 09:24 | PC.NURSE ---
Took 10 tylenol and 5 asa [employer] as daughter has called and updated us
--- NOTE | 2019-06-09 09:34 | PC.NURSE ---
new dressing placed over deshaun tube site. chloraprep swab, deshaun tube draining bile.
[2019-06-09 09:43] LABS: Acetaminophen 15 ug/mL (10-30); Salicylate 4.4 mg/dL (<20)
[2019-06-09 10:01] LABS: Anisocytosis 1+
[2019-06-09] MEDS: HYDROMORPHONE 1 MG INJ IV (11:18)
[2019-06-09 11:32] LABS: Bacteria Urine None Seen; WBC Urine None Seen (0-5/HPF)
[2019-06-09 11:47] LABS: RBC Urine 5-10/HPF (0-5/HPF)
[2019-06-09 11:48] LABS: Culture Indicated Urine Cult Not Indicated; Squamous Epithelial Cell Urine 0-1 /HPF (0-5/HPF)
[2019-06-09 13:06] LABS: Acetaminophen < 10 ug/mL (10-30); Salicylate 6.5 mg/dL (<20)
--- NOTE | 2019-06-09 16:13 | PC.NURSE ---
pt said he didn't feel good after pain medication. vss. reports abdominal pain. states that he didn't eat today. offered pt food. sandwich brought in for pt. pt wanted to drink hot chocolate. waiting for daughter, sitting in wheelchair.
== END 2019-06-09 16:37 | disposition home or self-care (01) ==
PROVIDERS: Emergency Provider Emergency Medicine; PCP Internal Medicine
DX: K81.9 Cholecystitis, unspecified (principal); R10.11 Right upper quadrant pain; I50.9 Heart failure, unspecified; Z79.01 Long term (current) use of anticoagulants; Z95.0 Presence of cardiac pacemaker; Z95.2 Presence of prosthetic heart valve
CPT/HCPCS: 36415; 71045; 74177; 80053; 80329; 81003; 81015; 82550; 82962; 83690; 84484; 85025; 85610; 85730; 93005; 96361; 96374; 96375; 96376; 99285; G0480; J1170; J2405; Q9967

== ENCOUNTER 2019-07-04 08:32 | Emergency (ER) | payer MEDICARE, OTHER, SELFPAY ==
[2018-05-06 21:50] VITALS: BMI 29.1
[2019-07-04] VITALS (8 sets, daily range): BP systolic 141–178; BP diastolic 74–113; PULSE 67–91; RESP 12–19; TEMP 37; O2SAT 93–100; BMI 26.6
--- NOTE | 2019-07-04 08:45 | ED.ABDPAIN ---
HPI - Abdominal Pain General Chief Complaint: Abdominal Pain Stated Complaint: ABD pain Time Seen by Provider: 07/04/19 08:38 Source: patient and EMS Mode of arrival: EMS Limitations: no limitations History of Present Illness HPI narrative: This is an 79-year-old male comes to the emergency department with complaint of abdominal pain. Patient states he had sort of increased onset at about 4:00 a.m. he states it was 10 at that time about a 7 at this time. Patient denies any fevers or chills currently. He felt sort of nauseated and ?yucky? but has not had active emesis except for 1 episode of dry heaves. Patient states he has been having normal urination without any dysuria urgency or frequency, he has had normal bowel movements without any melena or hematochezia. He states the pain does not radiate to his back. Patient states that his drain decreased output about 2 weeks ago. He has not drained in that time and there is only a few mL of bilious fluid. He states the color has not changed or the consistency but he has not noticed any further accumulation. Here in the department it appears that the drain is actually fallen out patient did not notice that it was out until he was shown the end of the drain sticking out any air. Patient has a history of CABG as well as mitral valve replacement about 7 years ago. He thinks that he had something done with his gallbladder and the drain paced about a month ago at [facility]. He had a hernia repair at age 3 and had 1 of his testicles surgically evaluated because it had not distended and was found to not be present. He denies any allergies. He is and lives with his and daughter. Related Data Home Medications Medication Instructions Recorded Confirmed aspirin 81 mg PO DAILY #0 05/25/10 07/04/19 amlodipine 10 mg PO DAILY 04/06/18 07/04/19 apixaban 2.5 mg PO BID 04/06/18 07/04/19 atorvastatin 40 mg PO DAILY 04/06/18 07/04/19 fluticasone furoate 1 spray INTRANASAL PRN PRN 04/06/18 07/04/19 terazosin 20 mg PO BEDTIME 04/06/18 07/04/19 metoprolol succinate [Toprol XL] 100 mg PO DAILY 05/31/19 07/04/19 hydralazine 25 mg PO TID 07/04/19 07/04/19 Previous Rx's Medication Instructions Recorded furosemide 40 mg PO DAILY #30 tab 05/09/18 hydrocodone-acetaminophen [Morris] 1 tab PO Q4-6H PRN #10 tab 06/09/19 Allergies Allergy/AdvReac Type Severity Reaction Status Date / Time No Known Drug Allergies Allergy Verified 07/04/19 08:36 Review of Systems Review of Systems ROS Unobtainable: All systems reviewed & are unremarkable except as noted in HPI and below Constitutional Constitutional: Denies chills, Denies fever(s), Denies lethargy, Reports malaise and Denies weakness Cardiovascular Cardiovascular: Denies chest pain, Denies edema, Denies dyspnea and Denies dyspnea on exertion Respiratory Respiratory: Denies dyspnea and Denies dyspnea on exertion Gastrointestinal Gastrointestinal: Reports as per HPI, Reports abdominal pain, Denies melena, Denies bloating, Denies hematochezia, Denies change in bowel habits, Denies constipation, Denies diarrhea, Reports nausea and Reports vomiting (x1, dry heave) Genitourinary Genitourinary: Denies hematuria, Denies difficulty urinating, Denies dysuria, Denies flank pain, Denies urinary frequency, Denies urinary hesitancy, Denies urinary incontinence and Denies urinary urgency Neurologic Neurologic: Denies weakness [facility] Medical History Allergic rhinitis (Chronic) Atrial fibrillation (Chronic) BPH (benign prostatic hyperplasia) (Chronic) Chronic renal failure (Chronic) Congestive heart failure (Chronic) Coronary artery disease (Chronic) Hyperlipidemia (Chronic) Hypertension (Chronic) Surgical History H/O mitral valve replacement (Resolved) S/P CABG (coronary artery bypass graft) (Resolved) Social History household members: spouse Smoking Status: Never smoker Social History household members: spouse Smoking Status: Never smoker Exam Narrative Exam Narrative: GENERAL: Alert and oriented x three, elderly male in mild distress. HEENT: Head normocephalic, atraumatic, EOMI, pupils reactive, face symmetric, moist mucous membranes NECK: Supple, full range of motion CARDIOVASCULAR: Regular rate and rhythm without murmurs, rubs or gallops. No JVD. No swelling in lower extremities. RESPIRATORY: Breath sounds equal bilaterally, no wheezes rales or rhonchi. ABDOMEN: Soft, moderately tender on right upper and lower quadrant. Hypoactive bowel sounds all 4 quadrants. No guarding or rebound, rigidity, no mass, mildly distended. Patient has a catheter sutured to abdomen and noted the intraabdominal end is external to the skin. The bag has 10mL of bilious fluid, patient states last drained 2 weeks ago. : No CVA tenderness EXTREMITIES: Normal range of motion, no clubbing or edema. Neurovascularly intact NEUROLOGICAL: Cranial nerves II through XII grossly intact. Moving all extremities SKIN: Warm, dry, no petechiae, no rashes or lesions. Initial Vital Signs Initial Vital Signs: Vital Signs Temperature 98.6 F 07/04/19 08:36 Pulse Rate 67 07/04/19 08:36 Respiratory Rate 16 07/04/19 08:36 Blood Pressure 162/81 H 07/04/19 08:36 Pulse Oximetry 98 07/04/19 08:36 Course Orders Ordered: ED Orders 07/04/19 08:44 CT abdomen pelvis w con Stat 07/04/19 08:50 Acetaminophen Stat Complete Blood Count AUTO DIFF Stat Comprehensive Metabolic Panel Stat Lactate (Lactic Acid) Stat Lipase Stat 07/04/19 09:09 Blood Culture Stat 07/04/19 11:29 Urine Microscopic Stat Sodium Chloride (Normal Saline 0.9%) 1,000 mls @ 125 mls/hr IV CONT LAURENCE Last Admin: 07/04/19 11:27 Dose: 125 mls/hr Documented by: SCANAPO Discontinued Medications Hydromorphone HCl (Dilaudid) 1 mg IV NOW ONE Stop: 07/04/19 10:35 Last Admin: 07/04/19 10:38 Dose: 1 mg Documented by: BTONER Hydromorphone HCl (Dilaudid) 0.5 mg IV NOW ONE Stop: 07/04/19 12:01 Last Admin: 07/04/19 12:13 Dose: 0.5 mg Documented by: BTONER Hydromorphone HCl (Dilaudid) 0.5 mg IV NOW ONE Stop: 07/04/19 14:00 Last Admin: 07/04/19 14:02 Dose: 0.5 mg Documented by: SHASHANK Sodium Chloride (Normal Saline 0.9%) 1,000 mls @ 1,000 mls/hr IV BOLUS ONE Stop: 07/04/19 09:42 Last Infusion: 07/04/19 11:09 Dose: 0 mls/hr Documented by: Admin: 07/04/19 09:00 Dose: 1,000 mls/hr Documented by: SHASHANK Piperacillin/Tazobactam/Dextrose (Zosyn) 3.375 gm in 50 mls @ 100 mls/hr IV NOW ONE Stop: 07/04/19 11:49 Last Admin: 07/04/19 11:29 Dose: Not Given Documented by: SHASHANK Metronidazole (Flagyl) 500 mg in 100 mls @ 100 mls/hr IV NOW ONE Stop: 07/04/19 12:26 Last Infusion: 07/04/19 13:00 Dose: 0 mls/hr Documented by: Admin: 07/04/19 11:34 Dose: 100 mls/hr Documented by: BENEDICTO Morphine Sulfate (Morphine) 4 mg IV NOW ONE Stop: 07/04/19 08:44 Last Admin: 07/04/19 09:01 Dose: 4 mg Documented by: SHASHANK Ondansetron HCl (Zofran) 4 mg IV NOW ONE Stop: 07/04/19 08:44 Last Admin: 07/04/19 09:01 Dose: 4 mg Documented by: SHASHANK Vital Signs Vital signs: Vital Signs - 8 hr 07/04/19 08:36 07/04/19 09:30 07/04/19 10:30 Temperature 98.6 F Pulse Rate 67 73 71 Respiratory Rate 16 15 19 Blood Pressure 162/81 H Blood Pressure [Right Arm] 171/74 H 150/84 H Pulse Oximetry 98 96 100 07/04/19 11:00 07/04/19 12:00 07/04/19 13:09 Temperature Pulse Rate 77 85 89 Respiratory Rate 16 12 19 Blood Pressure Blood Pressure [Right Arm] 178/83 H 141/113 H 157/93 H Pulse Oximetry 95 93 97 MDM - Abdominal Pain Lab Data Attestation: I reviewed the patient's lab results. Result diagrams: 07/04/19 08:50 07/04/19 08:50 Labs: Lab Results 07/04/19 07/04/19 07/04/19 Range/Units 08:50 08:50 08:50 WBC 12.0 H (4.5-11.0) X10^3/uL RBC 4.57 (4.5-5.9) X10^6/uL Hgb 11.4 L (13.5-17.5) g/dL Hct 35.0 L (41-53) % MCV 76.5 L (80-100) fL MCH 25.0 L (26-34) PG MCHC 32.7 (30-36) % RDW 19.5 H (11.6-14.8) % Plt Count 180 (150-400) X10^3/uL Neut % (Auto) 85.8 H (50-75) % Lymph % (Auto) 5.7 L (25-40) % [place] % (Auto) 6.8 (3-14) % Eos % (Auto) 1.1 L (2-4) % Baso % (Auto) 0.6 (0-2) % Neut # (Auto) 08067 H (7293-0730) /uL Lymph # (Auto) 700 L (1558-6250) /uL [place] # (Auto) 800 (0-900) /uL Eos # (Auto) 100 (0-450) /uL Baso # (Auto) 100 (0-100) /uL Sodium 143 (137-145) mmol/L Potassium 3.2 L (3.4-5.1) mmol/L Chloride 103 (98-107) mmol/L Carbon Dioxide 24 (22-32) mmol/L BUN 31 H (9-20) mg/dL Creatinine 1.70 H (0.66-1.25) mg/dL Estimated GFR 38.9 L (>60) mL/min BUN/Creatinine Ratio 18.2 (6-22) Glucose 130 H (80-110) mg/dL Lactate 2.2 H (0.7-2.1) mmol/L Calcium 10.0 (8.4-10.2) mg/dL Total Bilirubin 0.6 (0.2-1.3) mg/dL AST 23 (17-59) IU/L ALT 35 (21-72) IU/L Alkaline Phosphatase 113 (38-126) U/L Total Protein 7.6 (6.3-8.2) g/dL Albumin 4.2 (3.5-5.0) g/dL Globulin 3.4 (1.7-4.1) g/dL Albumin/Globulin Ratio 1.2 (1.0-2.8) Lipase 488 H (23-300) U/L Urine RBC (0-5/HPF) Urine WBC (0-5/HPF) Ur Squamous Epith Cells (0-5/HPF) Urine Bacteria (None) Ur Culture Indicated? Acetaminophen (10-30) ug/mL 07/04/19 07/04/19 07/04/19 Range/Units 08:50 11:15 11:29 WBC (4.5-11.0) X10^3/uL RBC (4.5-5.9) X10^6/uL Hgb (13.5-17.5) g/dL Hct (41-53) % MCV (80-100) fL MCH (26-34) PG MCHC (30-36) % RDW (11.6-14.8) % Plt Count (150-400) X10^3/uL Neut % (Auto) (50-75) % Lymph % (Auto) (25-40) % [place] % (Auto) (3-14) % Eos % (Auto) (2-4) % Baso % (Auto) (0-2) % Neut # (Auto) (8810-9525) /uL Lymph # (Auto) (3202-7403) /uL [place] # (Auto) (0-900) /uL Eos # (Auto) (0-450) /uL Baso # (Auto) (0-100) /uL Sodium (137-145) mmol/L Potassium (3.4-5.1) mmol/L Chloride (98-107) mmol/L Carbon Dioxide (22-32) mmol/L BUN (9-20) mg/dL Creatinine (0.66-1.25) mg/dL Estimated GFR (>60) mL/min BUN/Creatinine Ratio (6-22) Glucose (80-110) mg/dL Lactate 1.8 (0.7-2.1) mmol/L Calcium (8.4-10.2) mg/dL Total Bilirubin (0.2-1.3) mg/dL AST (17-59) IU/L ALT (21-72) IU/L Alkaline Phosphatase (38-126) U/L Total Protein (6.3-8.2) g/dL Albumin (3.5-5.0) g/dL Globulin (1.7-4.1) g/dL Albumin/Globulin Ratio (1.0-2.8) Lipase (23-300) U/L Urine RBC 1-5/hpf (0-5/HPF) Urine WBC 0-1/hpf (0-5/HPF) Ur Squamous Epith Cells 0-1 /hpf (0-5/HPF) Urine Bacteria Few (2-10) H (None) Ur Culture Indicated? Cult not indicated Acetaminophen < 10 L (10-30) ug/mL Point of care testing: Urine Dip Bedside Urine Glucose Negative Bedside Urine Bilirubin - Negative Bedside Urine Ketone - Negative Urine Specific [place] 1.005 Bedside Urine Occult Blood + Bedside Urine pH 6.5 Bedside Urine Protein +/- 15 Bedside Urine Urobilinogen - Negative Bedside Urine Nitrite - Negative Bedside Urine Leukocytes - Negative Esterase Imaging Data CT scan - abdomen: Radiologist's impression: [place] [address] CT Scan Report Signed Patient: Aba Ackerman FMR#: [id number] : [id number]:[id number] Age/Sex: 79 / MDate of Service: 07/04/19 Loc: ED Accession Number: [id number] Procedure: CT abdomen pelvis w con Ordering Provider: Yumiko Penny D.O. PROCEDURE: CT ABDOMEN PELVIS W CON INDICATIONS: abd pain, has perc drain fell out recently, ? deshaun month ag TECHNIQUE: After the administration of intravenous contrast, 5 mm thick sections acquired from the diaphragm to the symphysis. 5 mm coronal and sagittal reformats were acquired. For radiation dose reduction, the following was used: automated exposure control, adjustment of mA and/or kV according to patient size. COMPARISON: [facility], CT, CT ABDOMEN PELVIS W CON, 06/09/2019, 9:27. FINDINGS: Image quality: Excellent. ABDOMEN: Lung bases: Small right pleural effusion with minimal right basal atelectasis. Minimal left pleural effusion. Mild to moderate hiatal hernia. Mild distal esophageal wall thickening. The Solid organs: Liver is normal in size and enhancement. The perihepatic/potentially subcapsular fluid collection anteriorly at the lateral segment of the left lobe of the liver is significantly smaller than on the prior study. It likely represents a biloma or resolving abscess. It measures 3.1 x 2.0 cm. Gallbladder no longer has a cholecystostomy tube. There is marked diffuse gallbladder wall edema. There are 2 sizable stones obstructing the cystic duct. These have advanced further into the cystic duct since the prior study.. Biliary system is non dilated. Pancreas enhances normally. Spleen is normal in size and enhancement. No adrenal nodules. Atrophic shrunken left kidney. Mild atrophy of the right kidney. Normal enhancement of the right kidney without stones. The Peritoneum and bowel: Bowel loops demonstrate normal wall thickness and caliber. Mild perihepatic ascites. Nodes and vessels: No retroperitoneal or mesenteric adenopathy by size criteria. Aorta and inferior vena cava are normal in size. Diffuse atherosclerotic calcifications. Miscellaneous: No ventral hernias. PELVIS: Genitourinary: Bladder wall thickness is normal. Prostate is enlarged. Miscellaneous: No inguinal hernias or adenopathy. Bones: No suspicious bony lesions. No vertebral body compression fractures. IMPRESSION: 1. Acute cholecystitis. 2 sizable stones obstructing the cystic duct. There is marked gallbladder wall thickening and edema. 2. Interval shrinkage of perihepatic collection adjacent to the lateral segment of the left lobe of the liver, measuring 3.1 x 2.0 cm. This likely represents a biloma or a resolving abscess. 3. Mild perihepatic ascites. 4. Small right pleural effusion, minimal left pleural effusion. 5. Atherosclerosis. Dictated by: Donovan Buck M.D. on 07/04/2019 at 9:41 Approved by: Donovan Buck M.D. on 07/04/2019 at 9:50 [facility] Narrative Medical decision making narrative: Plan to obtain records, labs, imaging and contact patient's surgical team. Patients catheter is clearly outside the body and possibly for several weeks. Patient was here on 06/09/19 and for abdominal pain, had imaging that showed cholecystostomy tube in place gallbladder at that time with fluid adjacent to the liver, likely a subcapsular biloma. Patient's lab work and vital signs do not reflect a sepsis he did have an elevated lactate which did improve on repeat. But he is quite uncomfortable and received several doses of IV pain medications. CT imaging was reviewed and shows cholecystitis with gallstones as well as slightly improved fluid collection from his CT on 06/09/2016 which did have this cholecystostomy tube in place. Patient case was discussed with surgery, Dr. Maldonado who recommends Rocephin 2 g of Flagyl 500 mg. He asked that patient be admitted to the hospitalist service as he has known cardiac issues and this was the reason he had IR with a catheter placed because he had not been cleared for surgery at that time and was high risk. I spoke with Dr. Santiago the hospitalist who accepts. They do have beds at [place]. Patient was continued on fluids, kept NPO. Discharge Plan Departure Patient Disposition: [facility] Clinical Impression: Cholecystitis, Biloma, extrahepatic, Cholecystostomy tube dysfunction Prescriptions: No Action aspirin 81 mg Tablet,Delayed Release (Dr/Ec) 81 mg PO DAILY Qty: 0 RF: 0 furosemide 40 mg tablet 40 mg PO DAILY Qty: 30 RF: 0 hydrocodone-acetaminophen [Morris] 5-325 mg tablet 1 tab PO Q4-6H PRN (Reason: pain) Qty: 10 RF: 0 hydralazine 25 mg tablet 25 mg PO TID RF: 0 atorvastatin 40 mg tablet 40 mg PO DAILY RF: 0 amlodipine 10 mg tablet 10 mg PO DAILY RF: 0 apixaban 2.5 mg tablet 2.5 mg PO BID RF: 0 terazosin 10 mg capsule 20 mg PO BEDTIME RF: 0 fluticasone furoate 27.5 mcg/actuation [place],Suspension 1 spray Intranasal PRN PRN (Reason: Congestion) RF: 0 metoprolol succinate [Toprol XL] 100 mg tablet extended release 24 hr 100 mg PO DAILY RF: 0 Referrals: Nora Pinon MD [Primary Care Provider] -
[2019-07-04 08:59] LABS: Add Manual Diff / Slide Review NO; Basophils Absolute Auto 100 /uL (0-100); Basophils Percent Auto 0.6 % (0-2); Eosinophils Absolute Auto 100 /uL (0-450); Eosinophils Percent Auto 1.1 % (2-4); Hemoglobin 11.4 g/dL (13.5-17.5); Lymphocytes Absolute Auto 700 /uL (1100-4500); Lymphocytes Percent Auto 5.7 % (25-40); Mean Corpuscular HGB Conc 32.7 % (30-36); Mean Corpuscular Volume 76.5 fL (80-100); Monocytes Absolute Auto 800 /uL (0-900); Monocytes Percent Auto 6.8 % (3-14); Neutrophils Absolute Auto 10300 /uL (1500-7000); Neutrophils Percent Auto 85.8 % (50-75); Platelet Count 180 X10^3/uL (150-400); Red Blood Cell Count 4.57 X10^6/uL (4.5-5.9); Red Cell Distribution Width 19.5 % (11.6-14.8)
[2019-07-04] MEDS: SODIUM CHLORIDE 0.9% 1,000 ML 1000 ML IV (09:00)
[2019-07-04] MEDS: MORPHINE 4 MG/ML INJ IV (09:01)
[2019-07-04] MEDS: ONDANSETRON 4 MG/2 ML INJ IV (09:01)
[2019-07-04 09:11] LABS: Alanine Aminotransferase 35 IU/L (21-72); Albumin 4.2 g/dL (3.5-5.0); Albumin Globulin Ratio 1.2 (1.0-2.8); Alkaline Phosphatase 113 U/L (38-126); Aspartate Aminotransferase 23 IU/L (17-59); BUN Creatinine Ratio 18.2 (6-22); Bilirubin Total 0.6 mg/dL (0.2-1.3); Blood Urea Nitrogen 31 mg/dL (9-20); Carbon Dioxide 24 mmol/L (22-32); Chloride 103 mmol/L (98-107); Estimated Glomerular Filt Rate 38.9 mL/min (>60); Globulin 3.4 g/dL (1.7-4.1); Glucose 130 mg/dL (80-110); HEMOLYSIS < 15 (0-50); Lipase 488 U/L (23-300); Potassium 3.2 mmol/L (3.4-5.1); Sodium 143 mmol/L (137-145); Total Protein 7.6 g/dL (6.3-8.2)
[2019-07-04 09:12] LABS: Acetaminophen < 10 ug/mL (10-30); Lactate (Lactic Acid) 2.2 mmol/L (0.7-2.1)
--- NOTE | 2019-07-04 10:28 | PC.NURSE ---
pt reports worsening pain in rt lower abd. reported to dr. beltre.
[2019-07-04] MEDS: HYDROMORPHONE 1 MG INJ IV (10:38)
[2019-07-04 10:56] LABS: Reflexed Lactate in 2 Hours Y
--- NOTE | 2019-07-04 11:08 | PC.NURSE ---
pt placed on 2l oxygen via NC at 1015
[2019-07-04] MEDS: SODIUM CHLORIDE 0.9% 1,000 ML 125 ML IV (11:27)
[2019-07-04] MEDS: metroNIDAZOLE 500 MG/100 ML PIGGYBACK 100 MG IV (11:34)
[2019-07-04 11:35] LABS: Lactate 2HR (Lactic Acid Rflx) 1.8 mmol/L (0.7-2.1)
[2019-07-04] MEDS: HYDROMORPHONE 0.5 MG INJ IV ×3 (12:13→15:14)
--- NOTE | 2019-07-04 12:19 | PC.NURSE ---
1145 pt complaints of pain moving to back, 08/16. reported to dr beltre, orders rec'd and noted.
--- NOTE | 2019-07-04 12:32 | PC.NURSE ---
spoke to pt daughter Yumiko, per pt request.
[2019-07-04 13:38] LABS: Bacteria Urine Few (2-10); RBC Urine 1-5/HPF (0-5/HPF); Squamous Epithelial Cell Urine 0-1 /HPF (0-5/HPF); WBC Urine 0-1/HPF (0-5/HPF)
[2019-07-04 13:39] LABS: Culture Indicated Urine Cult Not Indicated
--- NOTE | 2019-07-04 13:50 | PC.NURSE ---
pt states pain 5 at 1300
== END 2019-07-04 15:37 | disposition short-term general hospital (02) ==
PROVIDERS: Emergency Provider Emergency Medicine; PCP Internal Medicine
DX: K81.9 Cholecystitis, unspecified (principal); K66.8 Other specified disorders of peritoneum; T85.518A Breakdown (mechanical) of other gastrointestinal prosthetic devices, implants and grafts, initial encounter
CPT/HCPCS: 36415; 36591; 74177; 80053; 80329; 81003; 81015; 83605; 83690; 85025; 87040; 96361; 96365; 96375; 96376; 99285; G0480; J1170; J2270; J2405; J2543; Q9967

== ENCOUNTER 2019-10-05 18:52 | Emergency (ER) | payer MEDICARE, OTHER, SELFPAY ==
[2018-05-06 21:50] VITALS: BMI 29.1
[2019-10-05] VITALS (7 sets, daily range): BP systolic 136–163; BP diastolic 82–93; PULSE 70–92; RESP 15–20; TEMP 37.3; O2SAT 92–96; BMI 23.3
--- NOTE | 2019-10-05 19:15 | DI.RAD.S_ITS ---
PROCEDURE: XR CHEST 1V INDICATIONS: weakness TECHNIQUE: One view of the chest was acquired. COMPARISON: [facility], CR, XR CHEST 1V, 06/09/2019, 8:11. FINDINGS: Surgical changes and devices: Pigtail drainage catheter projects in the right upper abdomen. Multiple median sternotomy wires are noted and unchanged in appearance. Cardiac valve prosthesis is unchanged in appearance. Lungs and pleura: Diffuse interstitial prominence. No focal consolidation. No pleural effusions or pneumothorax. Mediastinum: Mediastinal contours appear normal. Heart size is normal. Bones and chest wall: No suspicious bony lesions. Overlying soft tissues appear unremarkable. IMPRESSION: Diffuse interstitial prominence without focal consolidation. Findings may represent infectious or inflammatory process. Pulmonary edema not excluded. Dictated by: Alberto Scherer M.D. on 10/05/2019 at 22:40 Approved by: Alberto Scherer M.D. on 10/05/2019 at 22:42
--- NOTE | 2019-10-05 19:29 | ED.RECABL ---
HPI - Recheck/Abnormal Lab/Rx <Yumiko Foster ASSOCIATE PARTNER-BC - Last Filed: 10/05/19 22:59> General Chief Complaint: Recheck/Abnormal Lab/Rx Stated Complaint: ABNORMAL LAB RESULTS Time Seen by Provider: 10/05/19 18:58 Source: patient and family Mode of arrival: Ambulatory Limitations: no limitations History of Present Illness HPI narrative: The patient is an 79-year-old male with complicated medical history including history of CABG, mitral valve replacement 7 years ago, stage 4 kidney disease, acute cholecystitis and was recently discharged from [facility] in [place] after receiving IV antibiotics. His daughter presents with him, stating that they came in because they were called and told to come to the closest emergency department given a lab results from yesterday. Yesterday he was evaluated at [facility] in the emergency department for chief complaint of weakness. Further questioning reveals that the patient's daughter believes he is here for a positive blood culture. Patient's daughter states he has been having low-grade fevers, and she has been giving him Tylenol. Patient denies any chest pain, shortness of breath, complains of generalized malaise and fatigue. He states he is ?sick of everything going on. Patient does have a history of AFib is not currently taking Eliquis. His daughter states he has been taking his Cipro and Flagyl as per instructed on discharge. The patient's discharge summary from his emergency department visit yesterday illustrate that he had a CT abdomen pelvis done yesterday at [facility]. Patient has a cholecystectomy tube and daughter states that has been draining appropriately. She states that he has had transient back spasm if he stays in the same position for a while. Related Data Home Medications Medication Instructions Recorded Confirmed aspirin 81 mg PO DAILY #0 05/25/10 07/04/19 amlodipine 10 mg PO DAILY 04/06/18 07/04/19 apixaban 2.5 mg PO BID 04/06/18 07/04/19 atorvastatin 40 mg PO DAILY 04/06/18 07/04/19 fluticasone furoate 1 spray INTRANASAL PRN PRN 04/06/18 07/04/19 terazosin 20 mg PO BEDTIME 04/06/18 07/04/19 metoprolol succinate [Toprol XL] 100 mg PO DAILY 05/31/19 07/04/19 hydralazine 25 mg PO TID 07/04/19 07/04/19 Previous Rx's Medication Instructions Recorded furosemide 40 mg PO DAILY #30 tab 05/09/18 hydrocodone-acetaminophen [[place]] 1 tab PO Q4-6H PRN #10 tab 06/09/19 Allergies Allergy/AdvReac Type Severity Reaction Status Date / Time No Known Drug Allergies Allergy Verified 10/05/19 19:08 Review of Systems <YARON Dozier - Last Filed: 10/05/19 22:59> Constitutional Constitutional: Reports as per HPI and Denies fatigue Eyes Eyes: Denies change in vision, Denies eye discharge, Denies irritation and Denies loss of vision ENT Ears, Nose, Mouth, and Throat: Denies change in voice, Denies neck pain, Denies sore throat and Denies throat swelling Cardiovascular Cardiovascular: Reports as per HPI Respiratory Respiratory: Denies chest congestion, Denies cough, Denies hemoptysis, Denies excessive phlegm production and Denies wheezing Gastrointestinal Gastrointestinal: Reports as per HPI Genitourinary Genitourinary: Denies hematuria and Denies dysuria Musculoskeletal Musculoskeletal: Reports system reviewed and no additional complaints, except as docu and Denies neck pain Integumentary/Breasts Skin/Breast: Reports system reviewed and no additional complaints, except as docu Neurologic Neurologic: Denies confusion and Denies loss of vision Psychiatric Psychiatric: Denies anxiety, Denies confusion, Denies depression, Denies homicidal ideation and Denies suicidal ideation Endocrine Endocrine: Denies fatigue and Denies flushing Hematologic/Lymphatic Hematologic/Lymphatic: Denies easy bruising Allergic/Immunologic Allergic/Immunologic: Denies urticaria, Denies throat swelling and Denies wheezing Patient History <YARON Dozier - Last Filed: 10/05/19 22:59> Medical History Allergic rhinitis (Chronic) Atrial fibrillation (Chronic) BPH (benign prostatic hyperplasia) (Chronic) Chronic renal failure (Chronic) Congestive heart failure (Chronic) Coronary artery disease (Chronic) Hyperlipidemia (Chronic) Hypertension (Chronic) Surgical History H/O mitral valve replacement (Resolved) S/P CABG (coronary artery bypass graft) (Resolved) Social History household members: spouse Smoking Status: Never smoker alcohol intake frequency: 0-2 drinks per day Substance Use Type: does not use Exam <YARON Dozier - Last Filed: 10/05/19 22:59> Narrative Exam Narrative: GENERAL: Elderly male lying on stretcher, appears uncomfortable HEAD: Atraumatic. Normocephalic. No temporal or scalp tenderness. EYES: Pupils equal round and reactive. Extraocular motions intact. No scleral icterus. No injection or drainage. ENT: Nose without bleeding, purulent drainage or septal hematoma. Throat without erythema, tonsillar hypertrophy or exudate. Uvula midline. Airway patent. NECK: Trachea midline. No JVD or lymphadenopathy. Supple, nontender, no meningeal signs. CARDIOVASCULAR: Regular rate and irregular rhythm. Murmur noted. RESPIRATORY: Decreased diffusely to auscultation. Breath sounds equal bilaterally. No wheezes, rales, or rhonchi. No cough. No increased respiratory effort. No accessory muscle use. GASTROINTESTINAL: Abdomen soft, diffusely tender to palpation, active bowel sounds. Catheter sutured to abdomen with bilious fluid in it. EXTREMITIES: No clubbing, cyanosis, or edema. No joint tenderness, effusion, or edema noted. BACK: Nontender without deformity or crepitance. No flank tenderness. NEURO: AOx3. SKIN: No rash or erythema on visible skin, Initial Vital Signs Initial Vital Signs: Vital Signs Temperature 99.2 F 10/05/19 19:08 Pulse Rate 92 H 10/05/19 19:08 Respiratory Rate 20 10/05/19 19:08 Blood Pressure 136/85 10/05/19 19:08 Pulse Oximetry 93 10/05/19 19:08 <Kristian Becerra DO - Last Filed: 10/05/19 23:50> Initial Vital Signs Initial Vital Signs: Vital Signs Temperature 99.2 F 10/05/19 19:08 Pulse Rate 92 H 10/05/19 19:08 Respiratory Rate 20 10/05/19 19:08 Blood Pressure 136/85 10/05/19 19:08 Pulse Oximetry 93 10/05/19 19:08 Course <YARON Dozier - Last Filed: 10/05/19 22:59> Course Course Narrative: Records were obtained from the patient's emergency department visit yesterday. Illustrates a CT abdomen which shows that his cholecystectomy tube is in appropriate place. Also shows bibasilar atelectasis of his lungs, hepatic cyst, distal and of the pigtail in the neck of the gallbladder. Blood culture results today illustrate detected Staphylococcus, Staphylococcus aureus, mecA. Orders Ordered: ED Orders 10/05/19 19:15 XR chest 1V Stat 10/05/19 19:16 EKG-12 Lead Routine 10/05/19 19:35 Complete Blood Count AUTO DIFF Stat Comprehensive Metabolic Panel Stat Lactate (Lactic Acid) Stat Partial Thromboplastin Time Stat Procalcitonin Stat Prothrombin Time INR Stat 10/05/19 20:00 Blood Culture Stat Sodium Chloride (Normal Saline 0.9%) 1,000 mls @ 150 mls/hr IV CONT LAURENCE Last Admin: 10/05/19 23:07 Dose: 150 mls/hr Documented by: VEENA Discontinued Medications Sodium Chloride (Normal Saline 0.9%) 1,000 mls @ 1,000 mls/hr IV BOLUS ONE Stop: 10/05/19 21:25 Last Infusion: 10/05/19 23:08 Dose: 0 mls/hr Documented by: Admin: 10/05/19 20:39 Dose: 1,000 mls/hr Documented by: VEENA Piperacillin/Tazobactam/Dextrose (Zosyn) 3.375 gm in 50 mls @ 100 mls/hr IV NOW ONE Stop: 10/05/19 21:54 Last Infusion: 10/05/19 22:16 Dose: 0 mls/hr Documented by: Admin: 10/05/19 21:41 Dose: 100 mls/hr Documented by: VEENA Vancomycin HCl (Vancomycin) 1,000 mg in 200 mls @ 200 mls/hr IV NOW ONE Stop: 10/05/19 22:24 Last Infusion: 10/05/19 23:18 Dose: 0 mls/hr Documented by: Admin: 10/05/19 22:16 Dose: 200 mls/hr Documented by: VEENA Morphine Sulfate (Morphine) 2 mg IV NOW ONE Stop: 10/05/19 22:33 Last Admin: 10/05/19 22:39 Dose: 2 mg Documented by: VEENA Morphine Sulfate (Morphine) 4 mg IV NOW ONE Stop: 10/05/19 22:58 Last Admin: 10/05/19 23:05 Dose: 4 mg Documented by: VEENA Ondansetron HCl (Zofran) 4 mg IV NOW ONE Stop: 10/05/19 22:33 Last Admin: 10/05/19 22:39 Dose: 4 mg Documented by: VEENA Consultations Consultation #1: A spoke with surgery from [facility], Dr Hernadez as well as the patient's surgeon Dr. Mckeon. They states that the patient is likely not ill due to his cholecystitis, but rather another source of infection given that his tube is in place as per imaging yesterday at [facility] in the emergency department. The patient has been on Cipro and Flagyl since his discharge. Given that he had a CT yesterday at [facility], they do not request further imaging today. Time: 21:00 Vital Signs Vital signs: Vital Signs - 8 hr 10/05/19 19:08 10/05/19 19:30 10/05/19 20:00 Temperature 99.2 F Pulse Rate 92 H 85 76 Respiratory Rate 20 19 15 Blood Pressure 136/85 Blood Pressure [Left Arm] 136/85 141/86 H Pulse Oximetry 93 93 92 10/05/19 21:00 10/05/19 21:30 10/05/19 22:03 Temperature Pulse Rate 70 85 83 Respiratory Rate 15 20 17 Blood Pressure Blood Pressure [Left Arm] 142/88 H 163/82 H 161/86 H Pulse Oximetry 94 96 96 10/05/19 23:00 Temperature Pulse Rate 82 Respiratory Rate 19 Blood Pressure Blood Pressure [Left Arm] 160/93 H Pulse Oximetry 93 <Kristian Becerra DO - Last Filed: 10/05/19 23:50> Course Course Narrative: Patient received in sign-out from Yumiko Foster. I performed an independent history and physical exam. Patient has a complex medical history and has active biliary infection with a cholecystostomy in place. Patient has been feeling very weak and fatigued and appears quite ill, with seen in the emergency department at [facility] yesterday and was contacted today with positive blood cultures. My partner had spoken with surgery on-call and they asked that we admit the patient to Medicine. For completeness sake I did discuss the case with our hospitalist here at [facility] but given the complexity of this patient's background and desire for continuity of care we sure the opinion that the patient is most appropriately transferred to [facility]. I have spoken with the hospitalist and he is happy to accept the patient in transfer. We appreciate the providers and staff at [facility] for their assistance in caring for this ill gentleman. Orders Ordered: ED Orders 10/05/19 19:15 XR chest 1V Stat 10/05/19 19:16 EKG-12 Lead Routine 10/05/19 19:35 Complete Blood Count AUTO DIFF Stat Comprehensive Metabolic Panel Stat Lactate (Lactic Acid) Stat Partial Thromboplastin Time Stat Procalcitonin Stat Prothrombin Time INR Stat 10/05/19 20:00 Blood Culture Stat Sodium Chloride (Normal Saline 0.9%) 1,000 mls @ 150 mls/hr IV CONT LAURENCE Last Admin: 10/05/19 23:07 Dose: 150 mls/hr Documented by: VEENA Discontinued Medications Sodium Chloride (Normal Saline 0.9%) 1,000 mls @ 1,000 mls/hr IV BOLUS ONE Stop: 10/05/19 21:25 Last Infusion: 10/05/19 23:08 Dose: 0 mls/hr Documented by: Admin: 10/05/19 20:39 Dose: 1,000 mls/hr Documented by: VEENA Piperacillin/Tazobactam/Dextrose (Zosyn) 3.375 gm in 50 mls @ 100 mls/hr IV NOW ONE Stop: 10/05/19 21:54 Last Infusion: 10/05/19 22:16 Dose: 0 mls/hr Documented by: Admin: 10/05/19 21:41 Dose: 100 mls/hr Documented by: VEENA Vancomycin HCl (Vancomycin) 1,000 mg in 200 mls @ 200 mls/hr IV NOW ONE Stop: 10/05/19 22:24 Last Infusion: 10/05/19 23:18 Dose: 0 mls/hr Documented by: Admin: 10/05/19 22:16 Dose: 200 mls/hr Documented by: VEENA Morphine Sulfate (Morphine) 2 mg IV NOW ONE Stop: 10/05/19 22:33 Last Admin: 10/05/19 22:39 Dose: 2 mg Documented by: VEENA Morphine Sulfate (Morphine) 4 mg IV NOW ONE Stop: 10/05/19 22:58 Last Admin: 10/05/19 23:05 Dose: 4 mg Documented by: VEENA Ondansetron HCl (Zofran) 4 mg IV NOW ONE Stop: 10/05/19 22:33 Last Admin: 10/05/19 22:39 Dose: 4 mg Documented by: VEENA Vital Signs Vital signs: Vital Signs - 8 hr 10/05/19 19:08 10/05/19 19:30 10/05/19 20:00 Temperature 99.2 F Pulse Rate 92 H 85 76 Respiratory Rate 20 19 15 Blood Pressure 136/85 Blood Pressure [Left Arm] 136/85 141/86 H Pulse Oximetry 93 93 92 10/05/19 21:00 10/05/19 21:30 10/05/19 22:03 Temperature Pulse Rate 70 85 83 Respiratory Rate 15 20 17 Blood Pressure Blood Pressure [Left Arm] 142/88 H 163/82 H 161/86 H Pulse Oximetry 94 96 96 10/05/19 23:00 Temperature Pulse Rate 82 Respiratory Rate 19 Blood Pressure Blood Pressure [Left Arm] 160/93 H Pulse Oximetry 93 MDM - Recheck/Abnormal Lab/Rx <SOLEDAD Dozier- - Last Filed: 10/05/19 22:59> Lab Data Attestation: I reviewed the patient's lab results. Result diagrams: 10/05/19 19:35 10/05/19 19:35 Labs: Lab Results 10/05/19 10/05/19 10/05/19 Range/Units 19:35 19:35 19:35 WBC 13.1 H (4.5-11.0) X10^3/uL RBC 4.08 L (4.5-5.9) X10^6/uL Hgb 9.9 L (13.5-17.5) g/dL Hct 30.3 L (41-53) % MCV 74.2 L (80-100) fL MCH 24.2 L (26-34) PG MCHC 32.6 (30-36) % RDW 19.9 H (11.6-14.8) % Plt Count 210 (150-400) X10^3/uL Neut % (Auto) 88.5 H (50-75) % Lymph % (Auto) 1.9 L (25-40) % Early % (Auto) 9.0 (3-14) % Eos % (Auto) 0.3 L (2-4) % Baso % (Auto) 0.3 (0-2) % Neut # (Auto) 79290 H (7719-5769) /uL Lymph # (Auto) 300 L (2008-0673) /uL Early # (Auto) 1200 H (0-900) /uL Eos # (Auto) 0 (0-450) /uL Baso # (Auto) 0 (0-100) /uL PT 32.9 H (10.1-12.7) SECONDS INR 2.8 H (0.9-1.3) APTT 37 H (26.4-36.2) SECONDS Sodium (137-145) mmol/L Potassium (3.4-5.1) mmol/L Chloride (98-107) mmol/L Carbon Dioxide (22-32) mmol/L BUN (9-20) mg/dL Creatinine (0.66-1.25) mg/dL Estimated GFR (>60) mL/min BUN/Creatinine Ratio (6-22) Glucose (80-110) mg/dL Lactate (0.7-2.1) mmol/L Calcium (8.4-10.2) mg/dL Total Bilirubin (0.2-1.3) mg/dL AST (17-59) IU/L ALT (<50) IU/L Alkaline Phosphatase (38-126) U/L Total Protein (6.3-8.2) g/dL Albumin (3.5-5.0) g/dL Globulin (1.7-4.1) g/dL Albumin/Globulin Ratio (1.0-2.8) Procalcitonin 0.93 H (<0.5) ng/mL 10/05/19 10/05/19 Range/Units 19:35 19:35 WBC (4.5-11.0) X10^3/uL RBC (4.5-5.9) X10^6/uL Hgb (13.5-17.5) g/dL Hct (41-53) % MCV (80-100) fL MCH (26-34) PG MCHC (30-36) % RDW (11.6-14.8) % Plt Count (150-400) X10^3/uL Neut % (Auto) (50-75) % Lymph % (Auto) (25-40) % Early % (Auto) (3-14) % Eos % (Auto) (2-4) % Baso % (Auto) (0-2) % Neut # (Auto) (8231-9215) /uL Lymph # (Auto) (2692-3871) /uL Early # (Auto) (0-900) /uL Eos # (Auto) (0-450) /uL Baso # (Auto) (0-100) /uL PT (10.1-12.7) SECONDS INR (0.9-1.3) APTT (26.4-36.2) SECONDS Sodium 140 (137-145) mmol/L Potassium 4.5 (3.4-5.1) mmol/L Chloride 110 H (98-107) mmol/L Carbon Dioxide 22 (22-32) mmol/L BUN 41 H (9-20) mg/dL Creatinine 1.90 H (0.66-1.25) mg/dL Estimated GFR 34.2 L (>60) mL/min BUN/Creatinine Ratio 21.6 (6-22) Glucose 134 H (80-110) mg/dL Lactate 1.6 (0.7-2.1) mmol/L Calcium 9.4 (8.4-10.2) mg/dL Total Bilirubin 0.6 (0.2-1.3) mg/dL AST 53 (17-59) IU/L ALT 40 (<50) IU/L Alkaline Phosphatase 137 H (38-126) U/L Total Protein 7.0 (6.3-8.2) g/dL Albumin 3.3 L (3.5-5.0) g/dL Globulin 3.7 (1.7-4.1) g/dL Albumin/Globulin Ratio 0.9 L (1.0-2.8) Procalcitonin (<0.5) ng/mL Urine Dip Bedside Urine Glucose Negative Bedside Urine Bilirubin - Negative Bedside Urine Ketone - Negative Urine Specific [place] 1.010 Bedside Urine Occult Blood - Negative Bedside Urine pH 6.0 Bedside Urine Protein +/- 15 Bedside Urine Urobilinogen - Negative Bedside Urine Nitrite - Negative Bedside Urine Leukocytes +/- 15 Esterase Imaging Data Chest x-ray: Radiologist's impression: [place] [id number] [place] [id number] XRay Report Signed Patient: Aba Ackerman FMR#: [id number] : 8Acct:[id number] Age/Sex: 79 / MDate of Service: 10/05/19 Loc: ED Accession Number: [id number] Procedure: XR chest 1V Ordering Provider: Yumiko Foster PROCEDURE: XR CHEST 1V INDICATIONS: weakness TECHNIQUE: One view of the chest was acquired. COMPARISON: [facility], CR, XR CHEST 1V, 06/09/2019, 8:11. FINDINGS: Surgical changes and devices: Pigtail drainage catheter projects in the right upper abdomen. Multiple median sternotomy wires are noted and unchanged in appearance. Cardiac valve prosthesis is unchanged in appearance. Lungs and pleura: Diffuse interstitial prominence. No focal consolidation. No pleural effusions or pneumothorax. Mediastinum: Mediastinal contours appear normal. Heart size is normal. Bones and chest wall: No suspicious bony lesions. Overlying soft tissues appear unremarkable. IMPRESSION: Diffuse interstitial prominence without focal consolidation. Findings may represent infectious or inflammatory process. Pulmonary edema not excluded. Dictated by: Alberto Scherer M.D. on 10/05/2019 at 22:40 Approved by: Alberto Scherer M.D. on 10/05/2019 at 22:42 ECG Data Attestation: I personally reviewed and interpreted this ECG as follows: Interpretation: sr 79. pr 299. qrs 107. no ectopy nopted. MDM Narrative Medical decision making narrative: 79-year-old male who presents with a chief complaint of fever malaise as well as a positive blood culture at an outside facility. The patient has a history of cholecystitis, has a percutaneous drain in place that is draining bile appearing fluid. He has low-grade temperatures, leukocytosis and elevated procalcitonin at 0.93. Given his reported positive blood culture at the facility, records were obtained from [facility]. He has been on Flagyl and Cipro as an outpatient. I started him on vanc and Zosyn. I spoke with his surgeon, states that this is likely not due to his surgery. However at this point I do not have another source, as he has no obvious pneumonia by x-ray, or imaging yesterday at the outside facility. His urine has no signs of infection. Patient was given IV fluid, antibiotics. He denies any pain in the emergency department. A given that the patient has a complicated medical and surgical history, recent multiple hospitalizations at [facility], I feel as though that the patient would be best served at that facility where his surgeon is. The patient remained normotensive, not tachycardic in the emergency department. After speaking with surgery from [facility], they suggested that he be admitted to hospitalist service at their facility. Hospitalist paged at 9:33 p.m., 21:57, 2215, and called back at 22:30 this stating it would be at least an hour before they could discussed the patient. Patient signed out to Dr Becerra at 23:00 with transfer pending <Kristian Becerra, - Last Filed: 10/05/19 23:50> Lab Data Labs: Lab Results 10/05/19 10/05/19 10/05/19 Range/Units 19:35 19:35 19:35 WBC 13.1 H (4.5-11.0) X10^3/uL RBC 4.08 L (4.5-5.9) X10^6/uL Hgb 9.9 L (13.5-17.5) g/dL Hct 30.3 L (41-53) % MCV 74.2 L (80-100) fL MCH 24.2 L (26-34) PG MCHC 32.6 (30-36) % RDW 19.9 H (11.6-14.8) % Plt Count 210 (150-400) X10^3/uL Neut % (Auto) 88.5 H (50-75) % Lymph % (Auto) 1.9 L (25-40) % Early % (Auto) 9.0 (3-14) % Eos % (Auto) 0.3 L (2-4) % Baso % (Auto) 0.3 (0-2) % Neut # (Auto) 93669 H (0243-5184) /uL Lymph # (Auto) 300 L (2261-3901) /uL Early # (Auto) 1200 H (0-900) /uL Eos # (Auto) 0 (0-450) /uL Baso # (Auto) 0 (0-100) /uL PT 32.9 H (10.1-12.7) SECONDS INR 2.8 H (0.9-1.3) APTT 37 H (26.4-36.2) SECONDS Sodium (137-145) mmol/L Potassium (3.4-5.1) mmol/L Chloride (98-107) mmol/L Carbon Dioxide (22-32) mmol/L BUN (9-20) mg/dL Creatinine (0.66-1.25) mg/dL Estimated GFR (>60) mL/min BUN/Creatinine Ratio (6-22) Glucose (80-110) mg/dL Lactate (0.7-2.1) mmol/L Calcium (8.4-10.2) mg/dL Total Bilirubin (0.2-1.3) mg/dL AST (17-59) IU/L ALT (<50) IU/L Alkaline Phosphatase (38-126) U/L Total Protein (6.3-8.2) g/dL Albumin (3.5-5.0) g/dL Globulin (1.7-4.1) g/dL Albumin/Globulin Ratio (1.0-2.8) Procalcitonin 0.93 H (<0.5) ng/mL 10/05/19 10/05/19 Range/Units 19:35 19:35 WBC (4.5-11.0) X10^3/uL RBC (4.5-5.9) X10^6/uL Hgb (13.5-17.5) g/dL Hct (41-53) % MCV (80-100) fL MCH (26-34) PG MCHC (30-36) % RDW (11.6-14.8) % Plt Count (150-400) X10^3/uL Neut % (Auto) (50-75) % Lymph % (Auto) (25-40) % Early % (Auto) (3-14) % Eos % (Auto) (2-4) % Baso % (Auto) (0-2) % Neut # (Auto) (9777-7834) /uL Lymph # (Auto) (1638-3052) /uL Early # (Auto) (0-900) /uL Eos # (Auto) (0-450) /uL Baso # (Auto) (0-100) /uL PT (10.1-12.7) SECONDS INR (0.9-1.3) APTT (26.4-36.2) SECONDS Sodium 140 (137-145) mmol/L Potassium 4.5 (3.4-5.1) mmol/L Chloride 110 H (98-107) mmol/L Carbon Dioxide 22 (22-32) mmol/L BUN 41 H (9-20) mg/dL Creatinine 1.90 H (0.66-1.25) mg/dL Estimated GFR 34.2 L (>60) mL/min BUN/Creatinine Ratio 21.6 (6-22) Glucose 134 H (80-110) mg/dL Lactate 1.6 (0.7-2.1) mmol/L Calcium 9.4 (8.4-10.2) mg/dL Total Bilirubin 0.6 (0.2-1.3) mg/dL AST 53 (17-59) IU/L ALT 40 (<50) IU/L Alkaline Phosphatase 137 H (38-126) U/L Total Protein 7.0 (6.3-8.2) g/dL Albumin 3.3 L (3.5-5.0) g/dL Globulin 3.7 (1.7-4.1) g/dL Albumin/Globulin Ratio 0.9 L (1.0-2.8) Procalcitonin (<0.5) ng/mL Urine Dip Bedside Urine Glucose Negative Bedside Urine Bilirubin - Negative Bedside Urine Ketone - Negative Urine Specific [place] 1.010 Bedside Urine Occult Blood - Negative Bedside Urine pH 6.0 Bedside Urine Protein +/- 15 Bedside Urine Urobilinogen - Negative Bedside Urine Nitrite - Negative Bedside Urine Leukocytes +/- 15 Esterase <Kristian Becerra DO - Last Filed: 10/05/19 23:50> Critical Care Time Critical Care Time: Yes Total Critical Care Time: 45 Attestation: The high probability of a clinically significant, sudden or life threatening deterioration of the [CV] system(s) required my full and direct attention, intervention and personal management. The aggregate critical care time was [45] minutes. This time is in addition to time spent performing reported procedures but includes the following: [x] Data Review and interpretation [x] Patient assessment and monitoring of vital signs [x] Documentation [x] Medication orders and management Discharge Plan Departure Patient Disposition: [facility] Clinical Impression: Bacteremia, Cholecystostomy care Sepsis Qualifiers: Sepsis type: sepsis due to unspecified organism Sepsis acute organ dysfunction status: without acute organ dysfunction Qualified Code(s): A41.9 - Sepsis, unspecified organism Prescriptions: No Action aspirin 81 mg Tablet,Delayed Release (Dr/Ec) 81 mg PO DAILY Qty: 0 RF: 0 furosemide 40 mg tablet 40 mg PO DAILY Qty: 30 RF: 0 hydrocodone-acetaminophen [Waldron] 5-325 mg tablet 1 tab PO Q4-6H PRN (Reason: pain) Qty: 10 RF: 0 hydralazine 25 mg tablet 25 mg PO TID RF: 0 atorvastatin 40 mg tablet 40 mg PO DAILY RF: 0 amlodipine 10 mg tablet 10 mg PO DAILY RF: 0 apixaban 2.5 mg tablet 2.5 mg PO BID RF: 0 terazosin 10 mg capsule 20 mg PO BEDTIME RF: 0 fluticasone furoate 27.5 mcg/actuation [place],Suspension 1 spray Intranasal PRN PRN (Reason: Congestion) RF: 0 metoprolol succinate [Toprol XL] 100 mg tablet extended release 24 hr 100 mg PO DAILY RF: 0 Referrals: Nora Pinon MD [Primary Care Provider] -
[2019-10-05 19:52] LABS: INR 2.8 (0.9-1.3); Prothrombin Time 32.9 SECONDS (10.1-12.7)
[2019-10-05 19:55] LABS: PTT Partial Thromboplastin Tim 37 SECONDS (26.4-36.2)
[2019-10-05 19:57] LABS: Lactate (Lactic Acid) 1.6 mmol/L (0.7-2.1)
[2019-10-05 19:58] LABS: Alanine Aminotransferase 40 IU/L (<50); Albumin 3.3 g/dL (3.5-5.0); Albumin Globulin Ratio 0.9 (1.0-2.8); Alkaline Phosphatase 137 U/L (38-126); Aspartate Aminotransferase 53 IU/L (17-59); BUN Creatinine Ratio 21.6 (6-22); Bilirubin Total 0.6 mg/dL (0.2-1.3); Blood Urea Nitrogen 41 mg/dL (9-20); Calcium 9.4 mg/dL (8.4-10.2); Carbon Dioxide 22 mmol/L (22-32); Chloride 110 mmol/L (98-107); Estimated Glomerular Filt Rate 34.2 mL/min (>60); Globulin 3.7 g/dL (1.7-4.1); Glucose 134 mg/dL (80-110); HEMOLYSIS < 15 (0-50); Potassium 4.5 mmol/L (3.4-5.1); Sodium 140 mmol/L (137-145)
--- NOTE | 2019-10-05 20:04 | PC.NURSE ---
drawn by lab
[2019-10-05 20:11] LABS: Add Manual Diff / Slide Review NO; Basophils Absolute Auto 0 /uL (0-100); Basophils Percent Auto 0.3 % (0-2); Eosinophils Absolute Auto 0 /uL (0-450); Eosinophils Percent Auto 0.3 % (2-4); Hematocrit 30.3 % (41-53); Hemoglobin 9.9 g/dL (13.5-17.5); Lymphocytes Absolute Auto 300 /uL (1100-4500); Lymphocytes Percent Auto 1.9 % (25-40); Mean Corpuscular HGB Conc 32.6 % (30-36); Mean Corpuscular Hemoglobin 24.2 PG (26-34); Mean Corpuscular Volume 74.2 fL (80-100); Monocytes Absolute Auto 1200 /uL (0-900); Neutrophils Absolute Auto 11600 /uL (1500-7000); Neutrophils Percent Auto 88.5 % (50-75); Platelet Count 210 X10^3/uL (150-400); Red Blood Cell Count 4.08 X10^6/uL (4.5-5.9); Red Cell Distribution Width 19.9 % (11.6-14.8); White Blood Cell Count 13.1 X10^3/uL (4.5-11.0)
[2019-10-05 20:13] LABS: Procalcitonin 0.93 ng/mL (<0.5)
[2019-10-05] MEDS: SODIUM CHLORIDE 0.9% 1,000 ML 1000 ML IV (20:39)
--- NOTE | 2019-10-05 21:00 | PC.NURSE ---
patient has percutanious galbladder drain in place. appears to be draining yellowish fluid. patient reports his drain has been woring properly. no signs of drain compromised.
[2019-10-05] MEDS: PIPERACILLIN-TAZO 3.375 GM/50 ML FROZ.PIGGY IV (21:41)
[2019-10-05] MEDS: VANCOMYCIN 1,000 MG/200 ML PIGGYBACK 200 MG IV (22:16)
--- NOTE | 2019-10-05 22:24 | PC.NURSE ---
patient condition unchanged, denies needs at this time, vanc infusing.
[2019-10-05] MEDS: MORPHINE 2 MG/ML INJ IV (22:39)
[2019-10-05] MEDS: ONDANSETRON 4 MG/2 ML INJ IV (22:39)
--- NOTE | 2019-10-05 22:45 | PC.NURSE ---
patient reports back pain that is 10/10 and cramping. provider at bedside. medication ordered.
[2019-10-05] MEDS: MORPHINE 4 MG/ML INJ IV (23:05)
[2019-10-05] MEDS: SODIUM CHLORIDE 0.9% 1,000 ML 150 ML IV (23:07)
[2019-10-06] VITALS: BP 133/85; PULSE 75; RESP 13; O2SAT 97
[2019-10-06] MEDS: MORPHINE 4 MG/ML INJ IV (00:48)
--- NOTE | 2019-10-06 00:54 | PC.NURSE ---
normal saline to infuse in transport.
[2019-10-06 01:08] VITALS: BP 155/82; PULSE 81; RESP 17; O2SAT 98
[2019-10-06 13:20] LABS: Acinetobacter baumannii Not Detected (Not Detect); Candida albicans Not Detected (Not Detect); Candida glabrata Not Detected (Not Detect); Candida krusei Not Detected (Not Detect); Candida parapsilosis Not Detected (Not Detect); Candida tropicalis Not Detected (Not Detect); E. coli Not Detected (Not Detect); Enterobacter cloacae complex Not Detected (Not Detect); Enterobacteriaceae species Not Detected (Not Detect); Enterococcus species Not Detected (Not Detect); Haemophilus influenzae Not Detected (Not Detect); Listeria monocytogenes Not Detected (Not Detect); Methicillin-resistant gene Detected (Not Detect); Neisseria meningitidis Not Detected (Not Detect); Proteus species Not Detected (Not Detect); Pseudomonas aeruginosa Not Detected (Not Detect); Serratia marcescens Not Detected (Not Detect); Staphylococcus species Detected (Not Detect); Streptococcus agalactiae (Gr B Not Detected (Not Detect); Streptococcus pneumonia Not Detected (Not Detect); Streptococcus pyogenes (Gr A) Not Detected (Not Detect); Streptococcus species Not Detected (Not Detect)
== END 2019-10-06 01:10 | disposition short-term general hospital (02) ==
PROVIDERS: Nurse Practitioner Family; Emergency Provider Emergency Medicine; PCP Internal Medicine
DX: A41.9 Sepsis, unspecified organism (principal); Z43.4 Encounter for attention to other artificial openings of digestive tract
CPT/HCPCS: 36415; 71045; 80053; 81003; 83605; 84145; 85025; 85610; 85730; 87040; 87150; 87186; 87205; 93005; 96361; 96365; 96367; 96375; 96376; 99285; 99291; J2270; J2405; J2543